=== PATIENT | female | born 1940 | race Caucasian/White ===

== ENCOUNTER 2016-11-02 15:30 | Emergency (ER) | payer MEDICARE ==
[2016-11-02] MEDS ORDERED: Albuterol/Ipratropium 3.0-0.5 MG/3 ML Neb Soln NEB ONE (15:47)
[2016-11-02] MEDS ORDERED: Albuterol/Ipratropium 3.0-0.5 MG/3 ML Neb Soln ONE (15:48)
[2016-11-02] MEDS ORDERED: predniSONE 20 MG Tab PO ONE (16:28)
--- NOTE | 2016-11-02 17:04 | EDM.PDOC ---
ED HPI GENERAL MEDICAL PROBLEM - General Chief Complaint: Respiratory Problem Stated Complaint: SOB Time Seen by Provider: 11/02/16 15:50 Source of Information: Reports: Patient, Family History Limitations: Reports: Respiratory Distress - History of Present Illness INITIAL COMMENTS - FREE TEXT/NARRATIVE: 76 y.o.w.f with a h/o COPD, came to the ed with her family to worsening of SOB. Pt smokes daily, has chronic low back pain as well. No Cough, no F/C No N/V /D or any other acute medical issues. Onset: Gradual, Unknown/Unsure Onset Date: 11/02/16 Onset Time: 06:00 Duration: Intermittent Location: Reports: Chest Quality: Reports: Same as Previous Episode Severity: Moderate Improves with: Reports: Medication Worsens with: Reports: Movement Context: Reports: Exercise Lower Back Pain Score (Numeric/FACES): 4 - Related Data Allergies Allergy/AdvReac Type Severity Reaction Status Date / Time Penicillins Allergy Severe Hives Verified 11/02/16 15:48 latex Allergy Rash Verified 11/02/16 15:48 Home Meds: Home Meds Calcium Carbonate [Calcium] 500 mg PO DAILY 12/05/12 [History] FLUoxetine [FLUoxetine] 10 mg PO DAILY 12/05/12 [History] Lutein/Minerals/Vit A,C & E [Ocuvite] 1 tab PO DAILY 12/05/12 [History] Multivitamins [Multivitamins] 1 each PO DAILY 12/05/12 [History] Zinc Gluconate [Zinc] 1 tab PO DAILY 12/05/12 [History] Cephalexin 500 mg PO BID 11/02/16 [History] Furosemide [Lasix] 40 mg PO DAILY 11/02/16 [History] Potassium Chloride 10 meq PO DAILY 11/02/16 [History] predniSONE 20 mg PO WITHBREAKFAST #4 tablet 11/02/16 [Rx] Past Medical History Cardiovascular History: Reports: None Respiratory History: Reports: COPD, SOB Gastrointestinal History: Reports: Bowel Obstruction 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: Musculoskeletal History: Reports: Back Pain, Chronic - Past Surgical History GI Surgical History: Reports: Appendectomy, Hernia Repair/Other Social & Family History - Tobacco Use Years of Tobacco use: 50 - Caffeine Use Caffeine Use: Reports: Coffee, Soda - Alcohol Use Days Per Week of Alcohol Use: 0 - Recreational Drug Use Recreational Drug Use: No ED ROS GENERAL - Review of Systems Review Of Systems: See Below Constitutional: Reports: No Symptoms HEENT: Reports: No Symptoms Respiratory: Reports: Shortness of Breath Cardiovascular: Reports: No Symptoms Endocrine: Reports: No Symptoms GI/Abdominal: Reports: No Symptoms : Reports: No Symptoms Musculoskeletal: Reports: No Symptoms Skin: Reports: No Symptoms Neurological: Reports: No Symptoms Psychiatric: Reports: No Symptoms, Other Hematologic/Lymphatic: Reports: No Symptoms Immunologic: Reports: No Symptoms ED EXAM, GENERAL - Physical Exam Exam: See Below Exam Limited By: Respiratory Distress General Appearance: Alert, WD/WN, Mild Distress Eye Exam: Bilateral Eye: Abnormal EOM Ears: Normal External Exam Ear Exam: Bilateral Ear: Auricle Normal Nose: Normal Inspection, Normal Mucosa Throat/Mouth: Normal Inspection, Normal Lips Head: Atraumatic Neck: Normal Inspection Respiratory/Chest: Decreased Breath Sounds, Rhonchi, Wheezing, Prolonged Expiration Cardiovascular: Normal Peripheral Pulses, Regular Rate, Rhythm, No Edema Peripheral Pulses: 1+: Femoral (L), Femoral (R) GI/Abdominal: Normal Bowel Sounds, Soft, Non-Tender, No Organomegaly (Female) Exam: Deferred Rectal (Female) Exam: Deferred Back Exam: Paraspinal Tenderness (chronic), Vertebral Tenderness (chronic) Extremities: Normal Inspection, Normal Range of Motion Neurological: Alert, Oriented, CN II-XII Intact, Normal Cognition Psychiatric: Normal Affect, Normal Mood Skin Exam: Warm, Dry, Intact, Normal Color, No Rash Lymphatic: No Adenopathy Course - Vital Signs Text/Narrative:: 76 y.o.w.f with a h/o COPD, came to the ed with her family to worsening of SOB. Pt smokes daily, has chronic low back pain as well. No Cough, no F/C No N/V /D or any other acute medical issues. PE: COPD exacerbation, Low back pain Imaging: CXR COPD, No infiltrate NAD Labs; WBC nl, pH 7.45 pCO2 30 pO2 75 on RA Na 133 ImpressionL: COPD exacerbation Tx: Duoneb, Prednson Reexam: Improved 95%, back pain improved a well. Plan: D/C with instructions Last Recorded V/S: Last Vital Signs Temp 36.8 C 11/02/16 15:50 Pulse 62 11/02/16 17:10 Resp 20 11/02/16 15:50 BP 107/62 11/02/16 17:10 Pulse Ox 94 L 11/02/16 17:10 - Orders/Labs/Meds Orders: Active Orders 24 hr Category Date Time Status RT Aerosol Therapy [RC] ASDIRECTED Care 11/02/16 15:48 Active Labs: Laboratory Tests 11/02/16 11/02/16 11/02/16 Range/Units 16:05 16:05 16:05 WBC 6.6 (4.5-12.0) X10-3/uL RBC 4.57 (3.23-5.20) x10(6)uL Hgb 14.1 (11.5-15.5) g/dL Hct 42.9 (30.0-51.3) % MCV 93.8 (80-96) fL MCH 30.9 (27.7-33.6) pg MCHC 32.9 (32.2-35.4) g/dL RDW 14.0 (11.5-15.5) % Plt Count 291 (125-369) X10(3)uL MPV 8.4 (7.4-10.4) fL Neut % (Auto) 56.1 (46-82) % Lymph % (Auto) 23.4 (13-37) % Vilas % (Auto) 8.8 (4-12) % Eos % (Auto) 11 H (1.0-5.0) % Baso % (Auto) 1 (0-2) % Neut # (Auto) 3.7 (1.6-8.3) # Lymph # (Auto) 1.5 (0.6-5.0) # Vilas # (Auto) 0.6 (0.0-1.3) # Eos # (Auto) 0.7 (0.0-0.8) # Baso # (Auto) 0.1 (0.0-0.2) # PT 10.7 (8.7-11.1) INR 1.06 (0.89-1.13) ABG pH (7.35-7.45) ABG pCO2 (35-45) mmHg ABG pO2 (83-108) mmHg ABG HCO3 (22-26) mmol/L ABG O2 Saturation (96-97) % ABG Base Excess (-2-2) Nico Test O2 Delivery Device Sodium 133 L (135-145) mmol/L Potassium 3.9 (3.5-5.3) mmol/L Chloride 101 D (100-110) mmol/L Carbon Dioxide 26 (23-29) mmol/L BUN 20 (8-23) mg/dL Creatinine 1.0 (0.6-1.3) mg/dL Est Cr Clr Drug Dosing 43.74 mL/min Estimated GFR (MDRD) 54 L (>60) BUN/Creatinine Ratio 20.0 (9-20) Glucose 131 H (80-116) mg/dL Lactic Acid (0.5-2.2) mmol/L Calcium 8.9 (8.6-10.2) mg/dL Troponin I (0.02-0.06) NG/ML 11/02/16 11/02/16 11/02/16 Range/Units 16:05 16:05 16:10 WBC (4.5-12.0) X10-3/uL RBC (3.23-5.20) x10(6)uL Hgb (11.5-15.5) g/dL Hct (30.0-51.3) % MCV (80-96) fL MCH (27.7-33.6) pg MCHC (32.2-35.4) g/dL RDW (11.5-15.5) % Plt Count (125-369) X10(3)uL MPV (7.4-10.4) fL Neut % (Auto) (46-82) % Lymph % (Auto) (13-37) % Vilas % (Auto) (4-12) % Eos % (Auto) (1.0-5.0) % Baso % (Auto) (0-2) % Neut # (Auto) (1.6-8.3) # Lymph # (Auto) (0.6-5.0) # Vilas # (Auto) (0.0-1.3) # Eos # (Auto) (0.0-0.8) # Baso # (Auto) (0.0-0.2) # PT (8.7-11.1) INR (0.89-1.13) ABG pH 7.48 H (7.35-7.45) ABG pCO2 30 L (35-45) mmHg ABG pO2 75 L (83-108) mmHg ABG HCO3 22 (22-26) mmol/L ABG O2 Saturation 96 (96-97) % ABG Base Excess 0.3 (-2-2) Nico Test Passed O2 Delivery Device Room air Sodium (135-145) mmol/L Potassium (3.5-5.3) mmol/L Chloride (100-110) mmol/L Carbon Dioxide (23-29) mmol/L BUN (8-23) mg/dL Creatinine (0.6-1.3) mg/dL Est Cr Clr Drug Dosing mL/min Estimated GFR (MDRD) (>60) BUN/Creatinine Ratio (9-20) Glucose (80-116) mg/dL Lactic Acid 2.1 (0.5-2.2) mmol/L Calcium (8.6-10.2) mg/dL Troponin I < 0.01 L (0.02-0.06) NG/ML Meds: Medications Discontinued Medications Generic Name Dose Route Start Last Admin Trade Name Eder PRN Reason Stop Dose Admin Albuterol/Ipratropium 3 ml 11/02/16 15:47 11/02/16 15:51 Duoneb 3.0-0.5 Mg/3 Ml NEB 11/02/16 15:48 3 ml ONETIME ONE Administration Albuterol/Ipratropium Confirm 11/02/16 15:48 11/02/16 16:12 Duoneb 3.0-0.5 Mg/3 Ml Administered 11/02/16 15:49 Not Given Dose 3 ml .ROUTE .STK-MED ONE Prednisone 60 mg 11/02/16 16:28 11/02/16 16:34 Prednisone PO 11/02/16 16:29 60 mg ONETIME ONE Administration Departure - Departure Time of Disposition: 17:00 Disposition: Home, Self-Care 01 Condition: Good Clinical Impression: COPD exacerbation - Discharge Information Prescriptions: predniSONE 20 mg PO WITHBREAKFAST #4 tablet Referrals: Belen Elaine [employer] [Primary Care Provider] - Forms: ED Department Discharge Additional Instructions: Please take prednisone for the next 4 days, please cont. your current meds, please f/u, come back if your symptoms get worse acutely - My Orders Last 24 Hours: My Active Orders 11/02/16 15:48 RT Aerosol Therapy [RC] ASDIRECTED - Assessment/Plan Last 24 Hours: My Active Orders 11/02/16 15:48 RT Aerosol Therapy [RC] ASDIRECTED
[2016-11-02 17:20] VITALS: BP 107/62
--- NOTE | 2016-11-03 11:10 | CR ---
INDICATION: Short of breath. CHEST: Portable AP upright view of the chest 11/02/2016, was compared with and 02/13/2011, revealing the heart to be normal in size and shape. The aorta is slightly tortuous with calcification in the arch. Lungs appear to be hyperaerated, with slightly flattened diaphragm leaf on the right, suggesting the possibility of COPD. No definite evidence of CHF could be identified. A definite active infiltrate or effusion was not identified. IMPRESSION: 1. Probable COPD. 2. ASD aorta. 3. Mild dextroconvex scoliosis thoracic spine. MTDD
== END 2016-11-02 17:15 | disposition home or self-care (01) ==
LOC: FB.ED 15:30
DX: J44.1 Chronic obstructive pulmonary disease with (acute) exacerbation (principal); F17.210 Nicotine dependence, cigarettes, uncomplicated; Z88.0 Allergy status to penicillin; Z91.040 Latex allergy status; Z90.49 Acquired absence of other specified parts of digestive tract
CPT/HCPCS: 36415; 36600; 71010; 80048; 82803; 83605; 84484; 85025; 85610; 94664; 99285; A9270; J7620; 99283

== ENCOUNTER 2017-06-20 10:32 | Emergency (ER) | payer MEDICARE ==
[2017-06-20] MEDS ORDERED: Ketorolac 30 MG/ML SDV IM ONE (11:34)
[2017-06-20] MEDS ORDERED: traMADol 50 MG Tab PO ONE (11:34)
[2017-06-20] MEDS ORDERED: Acetaminophen 500 MG Tab PO ONE (11:34)
--- NOTE | 2017-06-20 12:11 | EDM.PDOC ---
ED HPI GENERAL MEDICAL PROBLEM - General Chief Complaint: Back Pain or Injury Stated Complaint: BACK PAIN Time Seen by Provider: 06/20/17 11:20 Source of Information: Reports: Patient History Limitations: Reports: No Limitations - History of Present Illness INITIAL COMMENTS - FREE TEXT/NARRATIVE: c/o mid back pain pt bend over 2d ago to place a humidifier on the floor, had a sharp pain in her mid back, has not radiated, has not gotten better, heat does not help, inc'd with walking uses a walker, has not fallen in past yr h/o COPD h/o osteoporosis her 03/25, the next day she slipped in the shower and fell against the shower head bending it, had pain over posterior rib for 8w, now better here with daughter no f/c/d has had flu vax smokes 2 cig/d Middle Back Pain Score (Numeric/FACES): 7 - Related Data Allergies Allergy/AdvReac Type Severity Reaction Status Date / Time Penicillins Allergy Severe Hives Verified 06/20/17 11:10 latex Allergy Rash Verified 06/20/17 11:10 Home Meds: Home Meds Calcium Carbonate [Calcium] 500 mg PO DAILY 12/05/12 [History] FLUoxetine [FLUoxetine] 10 mg PO DAILY 12/05/12 [History] Lutein/Minerals/Vit A,C & E [Ocuvite] 1 tab PO DAILY 12/05/12 [History] Multivitamins [Multivitamins] 1 each PO DAILY 12/05/12 [History] Zinc Gluconate [Zinc] 1 tab PO DAILY 12/05/12 [History] Cephalexin 500 mg PO BID 11/02/16 [History] Furosemide [Lasix] 40 mg PO DAILY 11/02/16 [History] Potassium Chloride 10 meq PO DAILY 11/02/16 [History] Aspirin [Halfprin] 81 mg PO DAILY 06/20/17 [History] Cyanocobalamin (Vitamin B12) [Vitamin B12] 1,000 mcg PO DAILY 06/20/17 [History] Fluticasone/Salmeterol [Advair 250-50] 1 puff INH BID 06/20/17 [History] traMADol HCl [Tramadol HCl] 50 mg PO Q6H PRN #15 tablet 06/20/17 [Rx] Past Medical History HEENT History: Reports: Other (See Below) Other HEENT History: wears glasses Cardiovascular History: Reports: None Respiratory History: Reports: COPD, SOB Gastrointestinal History: Reports: Bowel 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: Musculoskeletal History: Reports: Back Pain, Chronic - Past Surgical History HEENT Surgical History: Reports: Other (See Below) Other HEENT Surgeries/Procedures: cornea transplant Cardiovascular Surgical History: Reports: Other (See Below) Other Cardiovascular Surgeries/Procedures: vein stripping GI Surgical History: Reports: Appendectomy, Bariatric Procedure, Cholecystectomy , Colon, Hernia Repair/Other Female Surgical History: Reports: Hysterectomy Social & Family History - Tobacco Use Smoking Status *Q: Never Smoker Years of Tobacco use: 50 - Caffeine Use Caffeine Use: Reports: Coffee - Alcohol Use Days Per Week of Alcohol Use: 0 - Recreational Drug Use Recreational Drug Use: No ED ROS GENERAL - Review of Systems Review Of Systems: See Below Constitutional: Reports: No Symptoms HEENT: Reports: No Symptoms Respiratory: Reports: No Symptoms Cardiovascular: Reports: No Symptoms Endocrine: Reports: No Symptoms GI/Abdominal: Reports: No Symptoms : Reports: No Symptoms Musculoskeletal: Reports: Back Pain Skin: Reports: No Symptoms Neurological: Reports: No Symptoms Psychiatric: Reports: No Symptoms Hematologic/Lymphatic: Reports: No Symptoms Immunologic: Reports: No Symptoms ED EXAM, UPPER BACK/NECK PAIN - Physical Exam Exam: See Below Exam Limited By: No Limitations General Appearance: Alert, WD/WN Skin Exam: Other (back with 1-2+ tender at T10, no spasm, slight tender above and below T10, ribs NT) Course - Vital Signs Last Recorded V/S: Last Vital Signs Temp 36.5 C 06/20/17 10:45 Pulse Resp 18 06/20/17 10:45 BP 131/65 06/20/17 10:45 Pulse Ox 99 06/20/17 10:45 - Orders/Labs/Meds Orders: Active Orders 24 hr Category Date Time Status Thoracic Spine 3V [CR] Stat Exams 06/20/17 11:38 Taken Meds: Medications Discontinued Medications Generic Name Dose Route Start Last Admin Trade Name Freq PRN Reason Stop Dose Admin Acetaminophen 1,000 mg 06/20/17 11:34 06/20/17 11:55 Tylenol Extra Strength PO 06/20/17 11:35 1,000 mg ONETIME ONE Administration Ketorolac Tromethamine 30 mg 06/20/17 11:34 06/20/17 11:55 Toradol IM 06/20/17 11:35 30 mg ONETIME ONE Administration Tramadol HCl 50 mg 06/20/17 11:34 06/20/17 11:54 Ultram PO 06/20/17 11:35 50 mg ONETIME ONE Administration - Re-Assessments/Exams Free Text/Narrative Re-Assessment/Exam: 06/20/17 12:26 XR t-spine with old 15% compression fx's of T10 and T9, c/w 2010 CxR multiple old 40% compression fx's of upper t-spine meds here "took the edge off" last BUN/creat 20/1.0, should be able to tolerate ibuprofen for 1-2w PCP Belen Johnson Departure - Departure Time of Disposition: 12:28 Disposition: Home, Self-Care 01 Condition: Good Clinical Impression: Compression fracture of thoracic vertebra - Discharge Information Prescriptions: traMADol HCl [Tramadol HCl] 50 mg PO Q6H PRN #15 tablet PRN Reason: Pain Instructions: Vertebral Fracture Referrals: Belen Elaine NP [Primary Care Provider] - Forms: ED Department Discharge Additional Instructions: For pain, take ibuprofen 200 mg 2 tabs 4 times a day for 1-2 weeks. For pain, take acetaminophen 500 mg 2 tabs 4 times a day for 8 weeks. For pain, as needed, take tramadol 50 mg 1 tab 4 times a day. No alcohol. Use one of your back braces when out of bed. See your doctor in 1 week. Return to ED if you are feeling worse. - My Orders Last 24 Hours: My Active Orders 06/20/17 11:38 Thoracic Spine 3V [CR] Stat - Assessment/Plan Last 24 Hours: My Active Orders 06/20/17 11:38 Thoracic Spine 3V [CR] Stat
[2017-06-20 12:53] VITALS: BP 126/63
--- NOTE | 2017-06-22 16:11 | CR ---
INDICATION: Middle back pain. Was lifting 20-30 pound object and felt pain. THORACIC SPINE: A frontal view of the thoracic spine with three lateral views of the thoracic spine were obtained 06/20/2017 and compared with chest x-ray images of the spine from 02/13/2011, again revealing compression fractures of the upper middle thoracic spine anteriorly and superior endplates, with no gross change compared with the previous examination, there being some mild degenerative changes in that area and accentuated dorsal kyphosis. The possibility, however, of minimal acute endplate compression fractures at at least two levels in that area cannot be excluded. As felt to be clinically necessary, nuclear bone imaging may be helpful for further evaluation as to the evaluation for chronicity versus acute compression fractures. A mild dextroconvex slightly rotatory scoliosis of the lower middle thoracic spine is noted. This may be very slightly more prominent than on the 2010 chest x-ray. IMPRESSION: Multiple osteoporotic compressions with accentuated kyphosis, mild degenerative changes, and for the most part, chronic appearance. However, minimal acute endplate compressions cannot be excluded in that area. [facility]
== END 2017-06-20 12:45 | disposition home or self-care (01) ==
LOC: FB.ED 10:32
DX: S22.079A Unspecified fracture of T9-T10 vertebra, initial encounter for closed fracture (principal); M81.0 Age-related osteoporosis without current pathological fracture; F17.210 Nicotine dependence, cigarettes, uncomplicated; J44.9 Chronic obstructive pulmonary disease, unspecified; Z88.0 Allergy status to penicillin; Z91.040 Latex allergy status; Z79.899 Other long term (current) drug therapy; Z79.82 Long term (current) use of aspirin; X50.0XXA Overexertion from strenuous movement or load, initial encounter
CPT/HCPCS: 72072; 96372; 99283; A9270; J1885

== ENCOUNTER 2017-07-08 05:04 | Emergency (ER) | payer MEDICARE ==
[2017-07-08 05:15] VITALS: BP 127/86
[2017-07-08] MEDS ORDERED: predniSONE 20 MG Tab PO ONE (05:29)
--- NOTE | 2017-07-08 05:37 | EDM.PDOC ---
ED HPI GENERAL MEDICAL PROBLEM - General Chief Complaint: Respiratory Problem Stated Complaint: SOB Time Seen by Provider: 07/08/17 05:10 Source of Information: Reports: Patient, Family, Old Records History Limitations: Reports: No Limitations - History of Present Illness INITIAL COMMENTS - FREE TEXT/NARRATIVE: Nichol returns to [facility] ED with a relapse of SOB over the past 5 hours. She apparently felt fine yesterday, smoked 3 cigs, and was compliant with meds and nebs for her COPD. She awoke after midnight with SOB, no reported cough, chest pain, palpitations or wheezing. She summoned EMS for assistance, and arrived at the ED with nasal 02 at 4 LPM, 02 sat 99%. She is feeling a little better at this time. - Related Data Allergies Allergy/AdvReac Type Severity Reaction Status Date / Time Penicillins Allergy Severe Hives Verified 07/08/17 05:13 latex Allergy Rash Verified 07/08/17 05:13 Home Meds: Home Meds Calcium Carbonate [Calcium] 500 mg PO DAILY 12/05/12 [History] FLUoxetine 10 mg PO DAILY 12/05/12 [History] Lutein/Minerals/Vit A,C & E [Ocuvite] 1 tab PO DAILY 12/05/12 [History] Multivitamins 1 each PO DAILY 12/05/12 [History] Zinc Gluconate [Zinc] 1 tab PO DAILY 12/05/12 [History] Cephalexin 500 mg PO BID 11/02/16 [History] Furosemide [Lasix] 40 mg PO DAILY 11/02/16 [History] Potassium Chloride 10 meq PO DAILY 11/02/16 [History] Aspirin [Halfprin] 81 mg PO DAILY 06/20/17 [History] Cyanocobalamin (Vitamin B12) [Vitamin B12] 1,000 mcg PO DAILY 06/20/17 [History] Fluticasone/Salmeterol [Advair 250-50] 1 puff INH BID 06/20/17 [History] traMADol HCl [Tramadol HCl] 50 mg PO Q6H PRN #15 tablet 06/20/17 [Rx] predniSONE [Prednisone] 20 mg PO DAILY 7 Days #10 tablet 07/08/17 [Rx] Past Medical History HEENT History: Reports: Other (See Below) Other HEENT History: wears glasses Cardiovascular History: Reports: None Respiratory History: Reports: COPD, SOB Gastrointestinal History: Reports: Bowel Obstruction 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: Musculoskeletal History: Reports: Back Pain, Chronic - Past Surgical History HEENT Surgical History: Reports: Other (See Below) Other HEENT Surgeries/Procedures: cornea transplant Cardiovascular Surgical History: Reports: Other (See Below) Other Cardiovascular Surgeries/Procedures: vein stripping GI Surgical History: Reports: Appendectomy, Bariatric Procedure, Cholecystectomy , Colon, Hernia Repair/Other Female Surgical History: Reports: Hysterectomy Social & Family History - Tobacco Use Smoking Status *Q: Current Every Day Smoker Years of Tobacco use: 50 Packs/Tins Daily: 0.5 - Caffeine Use Caffeine Use: Reports: Coffee, Soda - Alcohol Use Days Per Week of Alcohol Use: 0 - Recreational Drug Use Recreational Drug Use: No ED ROS GENERAL - Review of Systems Review Of Systems: See Below Constitutional: Reports: Malaise, Weakness, Fatigue HEENT: Reports: No Symptoms Respiratory: Reports: Shortness of Breath, Wheezing Cardiovascular: Reports: Dyspnea on Exertion Endocrine: Reports: No Symptoms GI/Abdominal: Reports: No Symptoms Musculoskeletal: Reports: No Symptoms Skin: Reports: No Symptoms Neurological: Reports: No Symptoms Psychiatric: Reports: No Symptoms Hematologic/Lymphatic: Reports: No Symptoms Immunologic: Reports: No Symptoms ED EXAM, GENERAL - Physical Exam Exam: See Below Exam Limited By: No Limitations General Appearance: Alert, WD/WN, No Apparent Distress, Thin Eye Exam: Bilateral Eye: EOMI, Normal Inspection, PERRL Ears: Normal External Exam Nose: Normal Inspection Throat/Mouth: Normal Inspection, Normal Voice Head: Normocephalic Neck: Normal Inspection, Supple, Non-Tender Respiratory/Chest: Decreased Breath Sounds, Crackles, Wheezing, Accessory Muscle Use, Prolonged Expiration Cardiovascular: Regular Rate, Rhythm, No Murmur GI/Abdominal: Normal Bowel Sounds, Soft, Non-Tender, No Organomegaly, No Distention, No Mass (Female) Exam: Deferred Rectal (Female) Exam: Deferred Back Exam: Normal Inspection Extremities: Normal Inspection, No Pedal Edema Neurological: Alert, Oriented, CN II-XII Intact Psychiatric: Normal Affect, Normal Mood Skin Exam: Warm, Dry, Intact, Normal Color Lymphatic: No Adenopathy Course - Vital Signs Text/Narrative:: Following assessment at the [facility] ED, a DuoNeb was administered, Prednisone 40 mg po, and a 12 lead ekg noted NSR with LBBB; chest x ray: heart normal size, no active infiltrates; CBC noted Hgb 15 gm, WBC 9,400, plts normal; CMP noted BUN 24, Cr 0.9; Troponin I <0.017; BNP 229. 02 sats at 96% on RA following observation. She is sxs improved. Last Recorded V/S: Last Vital Signs Temp 36.7 C 07/08/17 05:14 Pulse 85 07/08/17 05:14 Resp 17 07/08/17 05:14 BP 127/86 07/08/17 05:14 Pulse Ox 99 07/08/17 05:14 - Orders/Labs/Meds Orders: Active Orders 24 hr Category Date Time Status EKG Documentation Completion [RC] ASDIRECTED Care 07/08/17 05:31 Active RT Aerosol Therapy [RC] ASDIRECTED Care 07/08/17 05:40 Active Chest 1V Frontal [CR] Stat Exams 07/08/17 05:30 Taken EKG 12 Lead [EK] Routine Ther 07/08/17 05:30 Ordered Labs: Laboratory Tests 07/08/17 07/08/17 07/08/17 Range/Units 05:45 05:45 05:45 WBC 9.4 (4.5-12.0) X10-3/uL RBC 4.77 (3.23-5.20) x10(6)uL Hgb 15.0 (11.5-15.5) g/dL Hct 44.6 (30.0-51.3) % MCV 93.5 (80-96) fL MCH 31.6 (27.7-33.6) pg MCHC 33.8 (32.2-35.4) g/dL RDW 14.7 (11.5-15.5) % Plt Count 339 (125-369) X10(3)uL MPV 8.3 (7.4-10.4) fL Neut % (Auto) 73.4 (46-82) % Lymph % (Auto) 12.7 L (13-37) % Johnston % (Auto) 7.6 (4-12) % Eos % (Auto) 6 H (1.0-5.0) % Baso % (Auto) 0 (0-2) % Neut # (Auto) 6.9 (1.6-8.3) # Lymph # (Auto) 1.2 (0.6-5.0) # Johnston # (Auto) 0.7 (0.0-1.3) # Eos # (Auto) 0.6 (0.0-0.8) # Baso # (Auto) 0.0 (0.0-0.2) # Sodium 138 (135-145) mmol/L Potassium 3.9 (3.5-5.3) mmol/L Chloride 101 (100-110) mmol/L Carbon Dioxide 34 H (21-32) mmol/L BUN 24 H (7-18) mg/dL Creatinine 0.9 (0.55-1.02) mg/dL Est Cr Clr Drug Dosing 47.85 mL/min Estimated GFR (MDRD) > 60 (>60) BUN/Creatinine Ratio 26.7 H (9-20) Glucose 104 (80-116) mg/dL Calcium 8.7 (8.6-10.2) mg/dL Troponin I < 0.017 L (<0.017-0.056) ng/mL NT-Pro-B Natriuret Pep 229 (<=450) pg/mL Meds: Medications Discontinued Medications Generic Name Dose Route Start Last Admin Trade Name Freq PRN Reason Stop Dose Admin Albuterol/Ipratropium 3 ml 07/08/17 05:40 07/08/17 05:48 Duoneb 3.0-0.5 Mg/3 Ml NEB 07/08/17 05:41 3 ml ONETIME ONE Administration Prednisone 40 mg 07/08/17 05:29 07/08/17 05:48 Prednisone PO 07/08/17 05:30 40 mg ONETIME ONE Administration Departure - Departure Time of Disposition: 06:25 Disposition: Home, Self-Care 01 Condition: Fair Clinical Impression: COPD exacerbation - Discharge Information Referrals: Belen Elaine NP [Primary Care Provider] - Forms: ED Department Discharge - Problem List & Annotations (1) COPD exacerbation SNOMED Code(s): 801152636068063 Code(s): J44.1 - CHRONIC OBSTRUCTIVE PULMONARY DISEASE W (ACUTE) EXACERBATION Status: Acute Current Visit: Yes Annotation/Comment:: I dispensed Prednisone taper 40-0 over the next week, advised no smoking, continue nebs at home as directed. - Problem List Review Problem List Initiated/Reviewed/Updated: Yes - My Orders Last 24 Hours: My Active Orders 07/08/17 05:30 Chest 1V Frontal [CR] Stat EKG 12 Lead [EK] Routine 07/08/17 05:31 EKG Documentation Completion [RC] ASDIRECTED 07/08/17 05:40 RT Aerosol Therapy [RC] ASDIRECTED - Assessment/Plan Last 24 Hours: My Active Orders 07/08/17 05:30 Chest 1V Frontal [CR] Stat EKG 12 Lead [EK] Routine 07/08/17 05:31 EKG Documentation Completion [RC] ASDIRECTED 07/08/17 05:40 RT Aerosol Therapy [RC] ASDIRECTED Plan: Follow up with PCP if needed.
[2017-07-08] MEDS ORDERED: Albuterol/Ipratropium 3.0-0.5 MG/3 ML Neb Soln NEB ONE (05:40)
--- NOTE | 2017-07-08 11:00 | CR ---
INDICATION: Short of breath. CHEST: An AP upright view of the chest, 07/08/2017, was compared with 2016 and 10/02/2013. The heart is enlarged similar to the previous study. The aorta is tortuous with calcification in the arch. Overlying EKG leads are noted. Slightly flattened diaphragm leaf with interdigitation and hyperaeration suggests COPD. No definite CHF is seen. No consolidating pneumonia or effusion was seen. Markings appear similar to the previous studies and are compatible with fibrosis , however, making it difficult to entirely exclude minimal patchy bronchopneumonia in areas of heavy markings. IMPRESSION: 1. No acute process. 2. ASHD. 3. COPD. 4. Pulmonary fibrosis. MTDD
== END 2017-07-08 06:40 | disposition home or self-care (01) ==
LOC: FB.ED 05:04
DX: J44.1 Chronic obstructive pulmonary disease with (acute) exacerbation (principal); F17.210 Nicotine dependence, cigarettes, uncomplicated; Z88.0 Allergy status to penicillin; Z91.040 Latex allergy status; Z79.899 Other long term (current) drug therapy; Z79.82 Long term (current) use of aspirin
CPT/HCPCS: 36415; 71045; 80048; 83880; 84484; 85025; 93005; 94640; 99285; A9270; J7620

== ENCOUNTER 2017-08-13 15:38 | Emergency (ER) | payer MEDICARE ==
[2017-08-13 15:53] VITALS: BP 116/70
--- NOTE | 2017-08-13 16:28 | EDM.PDOC ---
ED HPI GENERAL MEDICAL PROBLEM - General Chief Complaint: Upper Extremity Injury/Pain Stated Complaint: INJURED L ARM Time Seen by Provider: 08/13/17 15:45 Source of Information: Reports: Patient History Limitations: Reports: No Limitations - History of Present Illness INITIAL COMMENTS - FREE TEXT/NARRATIVE: c/o L shoulder pain fell getting into tub last night, has pain under her R clavicle with movement, took ibuprofen x 2 this AM which helped stopped smoing 2m ago daughter here, requested a note to stay with her mother for a few days to help her left chest/shoulder Pain Score (Numeric/FACES): 5 - Related Data Allergies Allergy/AdvReac Type Severity Reaction Status Date / Time Penicillins Allergy Severe Hives Verified 08/13/17 15:55 latex Allergy Rash Verified 08/13/17 15:55 Home Meds: Home Meds Calcium Carbonate [Calcium] 500 mg PO DAILY 12/05/12 [History] FLUoxetine 10 mg PO DAILY 12/05/12 [History] Lutein/Minerals/Vit A,C & E [Ocuvite] 1 tab PO DAILY 12/05/12 [History] Multivitamins 1 each PO DAILY 12/05/12 [History] Zinc Gluconate [Zinc] 1 tab PO DAILY 12/05/12 [History] Cephalexin 500 mg PO BID 11/02/16 [History] Furosemide [Lasix] 40 mg PO DAILY 11/02/16 [History] Potassium Chloride 10 meq PO DAILY 11/02/16 [History] Aspirin [Halfprin] 81 mg PO DAILY 06/20/17 [History] Cyanocobalamin (Vitamin B12) [Vitamin B12] 1,000 mcg PO DAILY 06/20/17 [History] Fluticasone/Salmeterol [Advair 250-50] 1 puff INH BID 06/20/17 [History] traMADol HCl [Tramadol HCl] 50 mg PO Q6H PRN #15 tablet 06/20/17 [Rx] predniSONE [Prednisone] 20 mg PO DAILY 7 Days #10 tablet 07/08/17 [Rx] Past Medical History HEENT History: Reports: Other (See Below) Other HEENT History: wears glasses Cardiovascular History: Reports: None Respiratory History: Reports: COPD, SOB Gastrointestinal History: Reports: 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: Musculoskeletal History: Reports: Back Pain, Chronic - Past Surgical History HEENT Surgical History: Reports: Other (See Below) Other HEENT Surgeries/Procedures: cornea transplant Cardiovascular Surgical History: Reports: Other (See Below) Other Cardiovascular Surgeries/Procedures: vein stripping GI Surgical History: Reports: Appendectomy, Bariatric Procedure, Cholecystectomy , Colon, Hernia Repair/Other Female Surgical History: Reports: Hysterectomy Social & Family History - Tobacco Use Smoking Status *Q: Former Smoker Used Tobacco, but Quit: Yes Month/Year Tobacco Last Used: 07/22 - Caffeine Use Caffeine Use: Reports: Coffee, Soda - Recreational Drug Use Recreational Drug Use: No Review of Systems - Review of Systems Review Of Systems: See Below Constitutional: Reports: No Symptoms Eyes: Reports: No Symptoms Ears: Reports: No Symptoms Nose: Reports: No Symptoms Mouth/Throat: Reports: No Symptoms Respiratory: Reports: No Symptoms Cardiovascular: Reports: No Symptoms GI/Abdominal: Reports: No Symptoms Genitourinary: Reports: No Symptoms Musculoskeletal: Reports: Other Skin: Reports: No Symptoms Neurological: Reports: No Symptoms Psychiatric: Reports: No Symptoms ED EXAM, GENERAL - Physical Exam Exam: See Below Exam Limited By: No Limitations General Appearance: Alert, WD/WN, No Apparent Distress, Other (alert, pleasant, conversant, moves fairly well, has her bourne walker with her) Ears: Normal External Exam Nose: Normal Inspection, Normal Mucosa, No Blood Throat/Mouth: Normal Inspection, Normal Lips, No Airway Compromise Head: Atraumatic, Normocephalic Neck: Normal Inspection, Supple, Non-Tender, Full Range of Motion. No: Limited Range of Motion, Lymphadenopathy (R), Lymphadenopathy (L), Tender Lateral, Tender Midline Respiratory/Chest: No Respiratory Distress, Lungs Clear, No Accessory Muscle Use , Other (fair AE, symmetric, tender over L ribs 3 and 4 under the clavicle, no swell, no ecchymosis, not localized, L axilla NT, back NT, neck NT, L clavicle NT, good ROM L shoulder) Cardiovascular: Regular Rate, Rhythm, No Edema, No Gallop, No Rub GI/Abdominal: Soft, Non-Tender Back Exam: Normal Inspection, Full Range of Motion, NT Extremities: Normal Inspection, Normal Range of Motion, Non-Tender, No Pedal Edema Neurological: Alert, Oriented, CN II-XII Intact, Normal Cognition, No Motor/ Sensory Deficits Psychiatric: Normal Affect, Normal Mood Skin Exam: Warm, Dry, Intact, Normal Color, No Rash Lymphatic: No Adenopathy Course - Vital Signs Last Recorded V/S: Last Vital Signs Temp Pulse 72 08/13/17 15:40 Resp 16 08/13/17 15:40 BP 116/70 08/13/17 15:40 Pulse Ox 97 08/13/17 15:40 - Orders/Labs/Meds Orders: Active Orders 24 hr Category Date Time Status Ribs 2V w Chest Lt [CR] Stat Exams 08/13/17 16:25 Ordered - Re-Assessments/Exams Free Text/Narrative Re-Assessment/Exam: 08/13/17 16:35 XR L ribs neg Departure - Departure Time of Disposition: 16:35 Disposition: Home, Self-Care 01 Condition: Good Clinical Impression: Contusion of rib on left side - Discharge Information Instructions: Rib Contusion Referrals: Belen Elaine LEATHER PRODUCTION WORKER [Primary Care Provider] - Forms: ED Department Discharge Additional Instructions: For pain and inflammation, take acetaminophen 500 mg 2 tabs 4 times a day for 1 week, longer if needed. For pain and inflammation, may also take ibuprofen 200 mg 2 tabs 4 times a day for 1 week. For pain, may also take tramadol 50 mg 1 tab 4 times a day. No alcohol. Use ice for 10 minutes 4 times a day for 2 days. See your doctor next week if you are not getting better. Return to ED if you are feeling worse. - My Orders Last 24 Hours: My Active Orders 08/13/17 16:25 Ribs 2V w Chest Lt [CR] Stat - Assessment/Plan Last 24 Hours: My Active Orders 08/13/17 16:25 Ribs 2V w Chest Lt [CR] Stat
--- NOTE | 2017-08-14 08:51 | CR ---
INDICATION: Pain left upper chest under clavicle after a fall. CHEST: PA view of the chest 08/13/2017 was compared with 07/08/2017, revealing the heart to be near the upper limits of normal in size. The aorta is tortuous with calcification in the arch and descending portion. Findings compatible with COPD are noted. An active infiltrate, effusion, contusion, or pneumothorax was not identified. No acute bony abnormality was seen. There is noted a moderate dextroconvex scoliosis of the mid thoracic spine. IMPRESSION: 1. No acute process. 2. Probable ASHD. 3. COPD. 4. Scoliosis. LEFT RIBS: Six views of the left ribs were obtained, revealing an appearance suggesting osteoporosis - demineralization. What appears to be a healed rib fracture posterolaterally of the 7th left rib is noted. Healed proximal humeral fracture is noted with deformity. A similarly located 6th left rib fracture site that is healed is also noted. A definite displaced acute fracture site or other acute bony abnormality was not suggested. If an occult fracture site is suspected clinically, CT examination or nuclear bone imaging may be helpful for further evaluation. IMPRESSION: 1. No definite acute displaced rib fracture is identified - if occult fracture site is suspected clinically and is felt to be clinically necessary, examination with nuclear bone imaging or CT may be helpful for further evaluation. 2. Old rib fractures that are healed at the 6th and 7th ribs posterolaterally. 3. Probable osteoporosis. 4. Healed proximal left humeral fracture site with moderate deformity - lateral angulation at the fracture site. MTDD
== END 2017-08-13 16:45 | disposition home or self-care (01) ==
LOC: FB.ED 15:38
DX: S20.212A Contusion of left front wall of thorax, initial encounter (principal); J44.9 Chronic obstructive pulmonary disease, unspecified; Z88.0 Allergy status to penicillin; Z91.040 Latex allergy status; Z79.899 Other long term (current) drug therapy; Z87.891 Personal history of nicotine dependence; W19.XXXA Unspecified fall, initial encounter
CPT/HCPCS: 71101-LT; 99283

== ENCOUNTER 2017-08-15 19:22 | Emergency (ER) | payer MEDICARE ==
[2017-08-15 19:40] VITALS: BP 115/71
[2017-08-15] MEDS ORDERED: Albuterol/Ipratropium 3.0-0.5 MG/3 ML Neb Soln NEB ONE (21:08)
[2017-08-15] MEDS ORDERED: Azithromycin 250 MG Tab PO SCH (21:15)
[2017-08-15] MEDS ORDERED: predniSONE 10 MG Tab PO SCH (21:15)
[2017-08-15] MEDS ORDERED: predniSONE 10 MG Tab ONE (21:47)
--- NOTE | 2017-08-17 13:09 | ER ---
DATE SEEN: 08/15/2017 TIME SEEN: The patient was seen at 2048 hours this evening. CHIEF COMPLAINT: Cough, fever, and COPD with recently just finished Keflex for a lung infection 7 days ago. She has started with respiratory symptoms approximately 3 weeks ago, and noticed 2 days after she stopped her antibiotics sudden last week, she felt more weak and has persistent coughing. She lives at home alone, but her daughter has come to stay with her as she has felt weaker more recently. She has minimal productive cough, not a particular color. She has prednisone on 2 different occasions this year 2018 since April. PAST MEDICAL HISTORY: Significant for gastric bypass without history of GERD, small-bowel obstruction with surgery and hysterectomy with postop hernias, each of these incisions as complications. She is a 3, para 3-0-0-3 with a gastric bypass resulting in weight loss from 260 pounds down to 169 pounds, currently is 180 pounds. CURRENT MEDICATIONS: 1. Pulmicort b.i.d. 2. DuoNeb q.i.d. 3. Multivitamins. 4. calcium with minerals. 5. Lasix 40 mg daily. 6. Zinc gluconate. 7. Potassium chloride. 8. Aspirin 81 mg. 9. Cyanocobalamin 1000mg daily. 10.Calcium carbonate. 11.Medication for depression, fluoxetine. 12.Ibuprofen. 13.Tylenol No. 3. 14.Tramadol. ALLERGIES: Penicillin and Lasix. ADDITIONAL INFORMATION: Past medical history compression fracture of thoracic vertebra. REVIEW OF SYSTEMS: Negative except noted in the HPI. PHYSICAL EXAMINATION: VITAL SIGNS: Blood pressure 115/71, heart rate 82 and sinus, respirations 16, oxygen saturation 97% on room air, and temperature 36.4 degrees centigrade. The patient is 75.5 kg with 24.3 kg/m2. She is mildly asthenic. She has elem's feet of previous smoker. She smoked at least 40-pack- years. Stopped smoking a year ago. GENERAL: Alert woman in mild distress. HEENT: Pharynx, mild dryness in the oral mucosa. Tongue is negative. TMs negative. Hearing is appropriate. NECK: No bruits. No thyromegaly or masses in the neck. No cervical adenopathy. LUNGS: Rales noted at bilateral bases, 50% more on the right than left. Lungs are clear anteriorly. No wheezes noted. HEART: S1, S2. No irregularity to rhythm. No murmur. ABDOMEN: Soft. Midline incisions xiphoid to umbilicus noted without hernia and other incisions noted without hernia. Groin without abnormality. No CVA percussion tenderness. VASCULAR STRUCTURES: Lower extremities nontender to palpation. No edema noted. EMERGENCY DEPARTMENT COURSE: The patient received 40 mg prednisone, DuoNeb, azithromycin 500 mg orally, and incentive spirometer. I did not repeat the x-ray. Did not repeat blood test. The patient felt comfortable with the decision. ASSESSMENT: Partial resolution pneumonia. PLAN: Consider using quinolone, however, because of potential ligamentous laxity going to occur with it and complications magnified by other medications she is taking I chose azithromycin 500 mg stat and 250 mg daily for 4 days. Also continue with prednisone 40 mg daily for 5 days and DuoNeb every 4 hours. The patient dispensed to follow up with her doctor in a week, earlier if worse. Her daughter will be helping care for her. She is encouraged to drink at least 2 L (2 quarts) of fluid a day. OTHER DIAGNOSES: 1. Partial resolution pneumonia. 2. Status post gastric bypass. 3. Status post small-bowel obstruction surgery with partial resection with status post hysterectomy, bilateral salpingo-oophorectomy with postoperative complications of hernia with each of these 2 surgeries. 4. Greater than [id number] smoking with risk for cancer as she goes past the [id number] of smoking. /[id number] ISHA/FLORESITA SANCHEZ
== END 2017-08-15 22:05 | disposition home or self-care (01) ==
LOC: FB.ED 19:22
DX: J18.9 Pneumonia, unspecified organism (principal); J44.9 Chronic obstructive pulmonary disease, unspecified; Z98.890 Other specified postprocedural states; Z79.899 Other long term (current) drug therapy; Z88.0 Allergy status to penicillin; Z88.5 Allergy status to narcotic agent
CPT/HCPCS: 94640; 99282; A9270; J7620

== ENCOUNTER 2017-09-26 18:41 | Emergency (ER) | payer MEDICARE ==
[2017-09-26] MEDS ORDERED: Levalbuterol HCl 1.25 MG/3 ML Neb NEB ONE (19:06)
[2017-09-26 20:27] VITALS: BP 109/78
--- NOTE | 2017-09-26 20:49 | ER ---
DATE SEEN: 09/26/2017 CHIEF COMPLAINT: Cough. HISTORY OF PRESENT ILLNESS: This is a 77-year-old female with a cough that is productive of yellow sputum for 5 days. She also has difficulty breathing and does not feel good. She has tried albuterol at home as a nebulized therapy with minimal improvement. She denies chest pain or fever. PAST MEDICAL HISTORY: She has a history of COPD, tobacco abuse, back pain. CURRENT MEDICATIONS: Reviewed. PHYSICAL EXAMINATION: GENERAL: She is not in any cardiopulmonary distress. VITAL SIGNS: Her blood pressure is normal. Her pulse is 80, temperature is 97.7, oxygenation 98% on room air. ENT: Normal. NECK: Trachea is midline. CARDIOVASCULAR: Normal. RESPIRATORY SYSTEM: Absent or diminished breath sounds in both lungs. No wheezing or rhonchi in my exam. This was after Xopenex. LABORATORY DATA: Labs were normal including a BNP and troponin. EKG unremarkable. Chest x-ray was normal with exception of COPD changes. IMPRESSION: Chronic obstructive pulmonary disease exacerbation. TREATMENT: Xopenex x1. Prednisone 10 mg twice a day and Z-Nikita. Follow up in the office in 1 to 2 days. /[id number] DAVIAN/KRISTINAL
--- NOTE | 2017-09-28 11:06 | CR ---
INDICATION: Cough. CHEST: PA and lateral views of the chest were obtained 09/26/2017 and compared with 08/13/2017 and 07/08/2017, revealing findings compatible with fairly severe COPD. Two PA views were obtained. The left ventricle appears to be enlarged, although transversely the heart size does not appear to be significantly enlarged. The aorta is tortuous and calcified in the arch. Markings in the lungs appear to be similar to the previous studies, suggesting a minimal degree of pulmonary fibrosis without evidence of an active infiltrate or effusion identified. Findings were also compared with thoracic spine of and shows evidence of two compression fractures in the upper thoracic spine, which appear to be fairly stable, producing accentuated dorsal kyphosis in that area. A dextroconvex scoliosis of mild degree is also again noted in mid thoracic spine. IMPRESSION: 1. No definite acute process, but with the heavy markings at the lung bases especially, compatible with pulmonary fibrosis, it is difficult to entirely exclude minimal patchy bronchopneumonia. This is especially true at the right lung base. 2. Severe COPD. 3. ASHD with LVE. 4. Osteoporosis with compressions, stable compared with 06/20/2017 with accentuated dorsal kyphosis and scoliosis also noted. MTDD
== END 2017-09-26 20:19 | disposition home or self-care (01) ==
LOC: FB.ED 18:41
DX: J44.1 Chronic obstructive pulmonary disease with (acute) exacerbation (principal)
CPT/HCPCS: 36415; 71046; 80048; 83880; 84484; 85025; 93005; 94640; 99285; J7612

== ENCOUNTER 2018-07-13 20:58 | Emergency (ER) | payer MEDICARE ==
--- NOTE | 2018-07-13 21:25 | EDM.PDOC ---
ED HPI GENERAL MEDICAL PROBLEM - General Chief Complaint: Respiratory Problem Stated Complaint: SOB Time Seen by Provider: 07/13/18 21:00 Source of Information: Reports: Patient, Old Records History Limitations: Reports: No Limitations - History of Present Illness INITIAL COMMENTS - FREE TEXT/NARRATIVE: Nichol returns to [facility] ED with sxs of SOB over the past 4 days. There is sporadic cough, usually nonproductive, no reported wheezing, but dyspnea on exertion. She saw PCP yesterday who did not determine any new clinical findings. Nichol reports she is med compliant, and took a recent DuoNeb just an hour ago without change in breathing status. Her 02 sats on adminssion are 95 % on 2 l swatch paster. - Related Data Allergies Allergy/AdvReac Type Severity Reaction Status Date / Time Penicillins Allergy Severe Hives Verified 09/26/17 18:53 latex Allergy Rash Verified 09/26/17 18:53 Home Meds: Home Meds Calcium Carbonate [Calcium] 500 mg PO DAILY 12/05/12 [History] FLUoxetine 10 mg PO DAILY 12/05/12 [History] Lutein/Minerals/Vit A,C & E [Ocuvite] 1 tab PO DAILY 12/05/12 [History] Multivitamins 1 each PO DAILY 12/05/12 [History] Zinc Gluconate [Zinc] 1 tab PO DAILY 12/05/12 [History] Furosemide [Lasix] 40 mg PO DAILY 11/02/16 [History] Potassium Chloride 10 meq PO DAILY 11/02/16 [History] Aspirin [Halfprin] 81 mg PO DAILY 06/20/17 [History] Cyanocobalamin (Vitamin B12) [Vitamin B12] 1,000 mcg PO DAILY 06/20/17 [History] Acetaminophen [Tylenol Extra Strength] 1,000 mg PO Q4H PRN 08/15/17 [History] Albuterol/Ipratropium [DuoNeb 3.0-0.5 MG/3 ML] 3 ml .XX Q4HR #1 box 08/15/17 [Rx ] Budesonide [Pulmicort] 1 ampule INH BID 08/15/17 [History] Ibuprofen 400 mg PO Q4H PRN 08/15/17 [History] Acetaminophen/Diphenhydramine [Tylenol Pm Ex-Strength Caplet] 2 each PO BEDTIME 09/26/17 [History] Albuterol [Ventolin HFA] 2 puff .XX Q3H PRN 09/26/17 [History] Potassium Chloride 10 meq PO DAILY 09/26/17 [History] Tiotropium [Spiriva Handihaler] 18 mcg DAILY 09/26/17 [History] predniSONE 20 mg PO DAILY #8 tab 07/13/18 [Rx] Past Medical History HEENT History: Reports: Other (See Below) Other HEENT History: Wears glasses. Cardiovascular History: Reports: None Respiratory History: Reports: COPD, SOB, Other (See Below) Other Respiratory History: smoker for 60 years. 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 Cardiovascular Surgical History: Reports: Other (See Below) Other Cardiovascular Surgeries/Procedures: Vein stripping procedure. GI Surgical History: Reports: Appendectomy, Bariatric Procedure, Cholecystectomy , Colon, Hernia Repair/Other, Other (See Below) Other GI Surgeries/Procedures: Bowel obstruction. Female Surgical History: Reports: Hysterectomy Social & Family History - Family History Family Medical History: Noncontributory - Caffeine Use Caffeine Use: Reports: Coffee, Other Other Caffeine Use: diet pop. ED ROS GENERAL - Review of Systems Review Of Systems: See Below Constitutional: Reports: Malaise, Fatigue HEENT: Reports: No Symptoms Respiratory: Reports: Shortness of Breath, Cough Cardiovascular: Reports: Dyspnea on Exertion Endocrine: Reports: No Symptoms GI/Abdominal: Reports: No Symptoms : Reports: No Symptoms Musculoskeletal: Reports: Back Pain Skin: Reports: No Symptoms Neurological: Reports: No Symptoms Psychiatric: Reports: No Symptoms Hematologic/Lymphatic: Reports: No Symptoms Immunologic: Reports: No Symptoms ED EXAM, GENERAL - Physical Exam Exam: See Below Exam Limited By: No Limitations General Appearance: Alert, WD/WN, No Apparent Distress, Anxious, Thin Throat/Mouth: Normal Inspection, Normal Lips, Normal Oropharynx, Normal Voice Head: Normocephalic Neck: Normal Inspection, Supple, Non-Tender Respiratory/Chest: No Respiratory Distress, No Accessory Muscle Use, Chest Non- Tender, Decreased Breath Sounds, Prolonged Expiration Cardiovascular: Regular Rate, Rhythm, No Murmur GI/Abdominal: Normal Bowel Sounds, Soft, Non-Tender, No Organomegaly, No Distention, No Mass (Female) Exam: Deferred Rectal (Female) Exam: Deferred Back Exam: Normal Inspection Extremities: Normal Inspection, Normal Range of Motion, No Pedal Edema Neurological: Alert, Oriented, Normal Cognition, No Motor/Sensory Deficits Psychiatric: Normal Affect, Anxious Skin Exam: Warm, Dry, Intact Lymphatic: No Adenopathy Course - Vital Signs Text/Narrative:: Nichol remained stable at the [facility] ED. Baseline lab studies were unchanged, with CRP 1.0. I administered Prednisone 40 mg po at time of discharge. - Orders/Labs/Meds Labs: Laboratory Tests 07/13/18 07/13/18 07/13/18 Range/Units 21:30 21:30 21:30 WBC 7.6 (4.5-12.0) X10-3/uL RBC 3.93 (3.23-5.20) x10(6)uL Hgb 12.6 (11.5-15.5) g/dL Hct 37.2 (30.0-51.3) % MCV 94.6 (80-96) fL MCH 32.1 (27.7-33.6) pg MCHC 33.9 (32.2-35.4) g/dL RDW 14.5 (11.5-15.5) % Plt Count 342 (125-369) X10(3)uL MPV 8.0 (7.4-10.4) fL Neut % (Auto) 70.6 (46-82) % Lymph % (Auto) 12.8 L (13-37) % [place] % (Auto) 10.1 (4-12) % Eos % (Auto) 6 H (1.0-5.0) % Baso % (Auto) 1 (0-2) % Neut # (Auto) 5.3 (1.6-8.3) # Lymph # (Auto) 1.0 (0.6-5.0) # [place] # (Auto) 0.8 (0.0-1.3) # Eos # (Auto) 0.4 (0.0-0.8) # Baso # (Auto) 0.1 (0.0-0.2) # D-Dimer, Quantitative 2.11 H (0.0-0.59) mg/LFEU Sodium 141 (135-145) mmol/L Potassium 4.4 (3.5-5.3) mmol/L Chloride 102 (100-110) mmol/L Carbon Dioxide 35 H (21-32) mmol/L BUN 25 H (7-18) mg/dL Creatinine 1.0 (0.55-1.02) mg/dL Est Cr Clr Drug Dosing TNP Estimated GFR (MDRD) 54 L (>60) BUN/Creatinine Ratio 25.0 H (9-20) Glucose 109 (80-116) mg/dL Calcium 8.3 L (8.6-10.2) mg/dL C-Reactive Protein (0.5-0.9) mg/dL 07/13/18 Range/Units 21:30 WBC (4.5-12.0) X10-3/uL RBC (3.23-5.20) x10(6)uL Hgb (11.5-15.5) g/dL Hct (30.0-51.3) % MCV (80-96) fL MCH (27.7-33.6) pg MCHC (32.2-35.4) g/dL RDW (11.5-15.5) % Plt Count (125-369) X10(3)uL MPV (7.4-10.4) fL Neut % (Auto) (46-82) % Lymph % (Auto) (13-37) % [place] % (Auto) (4-12) % Eos % (Auto) (1.0-5.0) % Baso % (Auto) (0-2) % Neut # (Auto) (1.6-8.3) # Lymph # (Auto) (0.6-5.0) # [place] # (Auto) (0.0-1.3) # Eos # (Auto) (0.0-0.8) # Baso # (Auto) (0.0-0.2) # D-Dimer, Quantitative (0.0-0.59) mg/LFEU Sodium (135-145) mmol/L Potassium (3.5-5.3) mmol/L Chloride (100-110) mmol/L Carbon Dioxide (21-32) mmol/L BUN (7-18) mg/dL Creatinine (0.55-1.02) mg/dL Est Cr Clr Drug Dosing Estimated GFR (MDRD) (>60) BUN/Creatinine Ratio (9-20) Glucose (80-116) mg/dL Calcium (8.6-10.2) mg/dL C-Reactive Protein 1.0 H (0.5-0.9) mg/dL Meds: Medications Discontinued Medications Generic Name Dose Route Start Last Admin Trade Name Freq PRN Reason Stop Dose Admin Prednisone 40 mg 07/13/18 21:53 Prednisone PO 07/13/18 21:54 ONETIME ONE Departure - Departure Time of Disposition: 22:01 Disposition: Home, Self-Care 01 Condition: Fair Clinical Impression: COPD (chronic obstructive pulmonary disease) Qualifiers: COPD type: unspecified COPD Qualified Code(s): J44.9 - Chronic obstructive pulmonary disease, unspecified - Discharge Information *PRESCRIPTION DRUG MONITORING PROGRAM REVIEWED*: Not Applicable *COPY OF PRESCRIPTION DRUG MONITORING REPORT IN PATIENT LULU: Not Applicable Prescriptions: predniSONE 20 mg PO DAILY #8 tab Referrals: PCP,None [Primary Care Provider] - Forms: ED Department Discharge - Problem List & Annotations (1) COPD (chronic obstructive pulmonary disease) SNOMED Code(s): 65340600 Code(s): J44.9 - CHRONIC OBSTRUCTIVE PULMONARY DISEASE, UNSPECIFIED Status : Acute Current Visit: Yes Annotation/Comment:: I dispensed Prednisone 40 mg qd for a total of 4 additional days. Qualifiers: COPD type: unspecified COPD Qualified Code(s): J44.9 - Chronic obstructive pulmonary disease, unspecified - Problem List Review Problem List Initiated/Reviewed/Updated: Yes - Assessment/Plan Plan: Follow up with PCP.
[2018-07-13] MEDS: predniSONE 20 MG Tab PO ONE (22:04)
[2018-07-13 23:29] VITALS: BP 125/83
== END 2018-07-13 22:24 | disposition home or self-care (01) ==
LOC: FB.ED 20:58
DX: J44.9 Chronic obstructive pulmonary disease, unspecified (principal); Z88.0 Allergy status to penicillin; Z91.040 Latex allergy status; Z79.899 Other long term (current) drug therapy; Z79.82 Long term (current) use of aspirin
CPT/HCPCS: 36415; 80048; 85025; 85379; 86140; 99283; A9270

== ENCOUNTER 2018-10-21 17:32 | Emergency (ER) | payer MEDICARE, OTHER ==
--- NOTE | 2018-10-21 17:58 | EDM.PDOC ---
ED HPI GENERAL MEDICAL PROBLEM - General Stated Complaint: CHEST PAIN Time Seen by Provider: 10/21/18 17:50 Source of Information: Reports: Patient History Limitations: Reports: No Limitations - History of Present Illness INITIAL COMMENTS - FREE TEXT/NARRATIVE: 78-year-old female who reports that at approximately 2 PM today while she was sitting and playing bingo she developed a cramping like pain in her left chest. It was mild initially and she did go to visit her daughter following this and she was still having pain at that time as well. There was quite a bit of stress related to her grandchild and the daughter thought that this may be stress related and gave her mother half of a marijuana type cigarette. She reports that it did make her symptoms better but the pain did not completely go away. She went home and continued to have the pain and laid down and developed worsening of her pain with an increase of the pain from a 2/10 to a 4/10 and also with pain in her left jaw. This prompted her to call a taxi to come to the hospital for evaluation. She reported that while she was waiting on the taxi, ( at approximately 5 PM) the pain went away. She is pain-free now. Anastasiia presented to the walk-in clinic and was brought over here for ongoing evaluation. She denies any neck pain, arm pain or back pain. She had no nausea or vomiting associated with this. She had no shortness of breath associated with this. He is O2 dependent related to her COPD on 2 L/m via nasal cannula of oxygen. She reports she had a similar pain as this a few months ago and it lasted for approximately 15 minutes. She was followed by her primary provider and was referred to a [facility] in [place] and she had a nuclear medicine stress test that she states was normal. There are no other associated signs or symptoms. There are no other modifying factors. 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: Other (see below) (As above) - Related Data Allergies Allergy/AdvReac Type Severity Reaction Status Date / Time Penicillins Allergy Severe Hives Verified 10/21/18 17:42 latex Allergy Rash Verified 10/21/18 17:42 Home Meds: Home Meds Calcium Carbonate [Calcium] 500 mg PO DAILY 12/05/12 [History] FLUoxetine 10 mg PO DAILY 12/05/12 [History] Lutein/Minerals/Vit A,C & E [Ocuvite] 1 tab PO DAILY 12/05/12 [History] Multivitamins 1 each PO DAILY 12/05/12 [History] Zinc Gluconate [Zinc] 1 tab PO DAILY 12/05/12 [History] Furosemide [Lasix] 40 mg PO DAILY 11/02/16 [History] Aspirin [Halfprin] 81 mg PO DAILY 06/20/17 [History] Cyanocobalamin (Vitamin B12) [Vitamin B12] 1,000 mcg PO DAILY 06/20/17 [History] Budesonide [Pulmicort] 1 ampule INH BID 08/15/17 [History] Ibuprofen 400 mg PO Q4H PRN 08/15/17 [History] Acetaminophen/Diphenhydramine [Tylenol Pm Ex-Strength Caplet] 1 each PO BEDTIME 09/26/17 [History] Albuterol [Ventolin HFA] 2 puff .XX Q3H PRN 09/26/17 [History] Potassium Chloride 10 meq PO DAILY 09/26/17 [History] Tiotropium [Spiriva Handihaler] 18 mcg DAILY 09/26/17 [History] Albuterol/Ipratropium [DuoNeb 3.0-0.5 MG/3 ML] 3 ml .XX TID 10/21/18 [History] Past Medical History HEENT History: Reports: Impaired Vision Other HEENT History: Wears glasses. 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 Cardiovascular Surgical History: Reports: Other (See Below) Other Cardiovascular Surgeries/Procedures: Vein stripping procedure 2. GI Surgical History: Reports: Appendectomy, Bariatric Procedure, Cholecystectomy , Colon, Hernia Repair/Other, Other (See Below) Other GI Surgeries/Procedures: Bowel obstruction. Female Surgical History: Reports: Hysterectomy Social & Family History - Tobacco Use Smoking Status *Q: Former Smoker (Quit 10 months ago but was a smoker for 60 years prior to that.) - Caffeine Use Caffeine Use: Reports: Coffee, Other Other Caffeine Use: diet pop. - Alcohol Use Alcohol Use History: No - Living Situation & Occupation Occupation: Retired Social History Comment: Presents to the emergency department from the walk-in clinic. She arrived to the hospital via taxi. ED ROS GENERAL - Review of Systems Review Of Systems: See Below Constitutional: Reports: No Symptoms HEENT: Reports: Other (Transient left jaw pain) Respiratory: Reports: No Symptoms Cardiovascular: Reports: Chest Pain GI/Abdominal: Reports: No Symptoms : Reports: No Symptoms Musculoskeletal: Reports: No Symptoms Skin: Reports: No Symptoms Neurological: Reports: No Symptoms Hematologic/Lymphatic: Reports: No Symptoms Immunologic: Reports: No Symptoms ED EXAM, GENERAL - Physical Exam Exam: See Below Exam Limited By: No Limitations General Appearance: Alert, WD/WN, No Apparent Distress Eye Exam: Bilateral Eye: EOMI, Normal Inspection, PERRL Ears: Normal External Exam Ear Exam: Bilateral Ear: Auricle Normal Nose: Normal Inspection, Normal Mucosa, No Blood Throat/Mouth: Normal Inspection, Normal Oropharynx, Normal Voice, No Airway Compromise Head: Atraumatic, Normocephalic Neck: Normal Inspection, Supple, Non-Tender, Full Range of Motion Respiratory/Chest: No Respiratory Distress, Lungs Clear, Normal Breath Sounds, No Accessory Muscle Use, Chest Non-Tender Cardiovascular: Normal Peripheral Pulses, Regular Rate, Rhythm, No JVD Peripheral Pulses: 2+: Radial (L), Radial (R), Dorsalis Pedis (L), Dorsalis Pedis (R) GI/Abdominal: Normal Bowel Sounds, Soft, Non-Tender, No Mass Back Exam: Normal Inspection Extremities: Normal Inspection, Normal Range of Motion, Non-Tender, Normal Capillary Refill, No Pedal Edema Neurological: Alert, Oriented, CN II-XII Intact, Normal Cognition, No Motor/ Sensory Deficits Skin Exam: Warm, Dry, Intact, Normal Color, No Rash EKG INTERPRETATION EKG Date: 10/21/18 Time: 17:34 Rhythm: NSR [place]: LAD-Left [place] Deviation P-Wave: Present QRS: Wide ST-T: Normal QT: Normal Comparison: No Change (No change from EKG performed on 09/26/2017. There was no STEMI pattern) Course - Vital Signs Last Recorded V/S: Last Vital Signs Temp 35.9 C 10/21/18 17:32 Pulse 76 10/21/18 17:32 Resp 20 10/21/18 17:32 BP 99/65 10/21/18 17:32 Pulse Ox 100 10/21/18 17:32 - Orders/Labs/Meds Orders: Active Orders 24 hr Category Date Time Status EKG Documentation Completion [RC] ASDIRECTED Care 10/21/18 18:01 Active Chest 1V Frontal [CR] Stat Exams 10/21/18 18:00 Taken Sodium Chloride 0.9% [Saline Flush] Med 10/21/18 18:00 Active 10 ml FLUSH ASDIRECTED PRN Peripheral IV Insertion Adult [OM.PC] Routine Oth 10/21/18 18:00 Ordered EKG 12 Lead [EK] Routine Ther 10/21/18 18:00 Ordered Medication Orders Sodium Chloride (Saline Flush) 10 ml FLUSH ASDIRECTED PRN PRN Reason: Keep Vein Open Last Admin: 10/21/18 18:30 Dose: 10 ml Labs: Laboratory Tests 10/21/18 10/21/18 10/21/18 Range/Units 17:44 17:44 18:00 WBC 7.7 (4.5-12.0) X10-3/uL RBC 4.44 (3.23-5.20) x10(6)uL Hgb 14.2 (11.5-15.5) g/dL Hct 41.8 (30.0-51.3) % MCV 94.2 (80-96) fL MCH 31.9 (27.7-33.6) pg MCHC 33.9 (32.2-35.4) g/dL RDW 14.0 (11.5-15.5) % Plt Count 310 (125-369) X10(3)uL MPV 8.4 (7.4-10.4) fL Neut % (Auto) 61.7 (46-82) % Lymph % (Auto) 19.5 (13-37) % Elk % (Auto) 7.1 (4-12) % Eos % (Auto) 8 H (1.0-5.0) % Baso % (Auto) 4 H (0-2) % Neut # (Auto) 4.8 (1.6-8.3) # Lymph # (Auto) 1.5 (0.6-5.0) # Elk # (Auto) 0.5 (0.0-1.3) # Eos # (Auto) 0.6 (0.0-0.8) # Baso # (Auto) 0.3 H (0.0-0.2) # Sodium 138 (135-145) mmol/L Potassium 3.7 (3.5-5.3) mmol/L Chloride 100 (100-110) mmol/L Carbon Dioxide 34 H (21-32) mmol/L BUN 26 H (7-18) mg/dL Creatinine 0.9 (0.55-1.02) mg/dL Est Cr Clr Drug Dosing 47.10 mL/min Estimated GFR (MDRD) > 60 (>60) BUN/Creatinine Ratio 28.9 H (9-20) Glucose 90 (80-116) mg/dL Calcium 9.0 (8.6-10.2) mg/dL Magnesium 2.1 (1.8-2.5) mg/dL Total Bilirubin 0.3 (0.1-1.3) mg/dL AST 19 (5-25) IU/L ALT 26 (12-36) U/L Alkaline Phosphatase 127 H (56-112) IU/L Troponin I < 0.017 L (<0.017-0.056) ng/mL Total Protein 6.3 (6.0-8.0) g/dL Albumin 3.4 (3.2-4.6) g/dL Globulin 2.9 g/dL Albumin/Globulin Ratio 1.2 10/21/18 Range/Units 20:00 WBC (4.5-12.0) X10-3/uL RBC (3.23-5.20) x10(6)uL Hgb (11.5-15.5) g/dL Hct (30.0-51.3) % MCV (80-96) fL MCH (27.7-33.6) pg MCHC (32.2-35.4) g/dL RDW (11.5-15.5) % Plt Count (125-369) X10(3)uL MPV (7.4-10.4) fL Neut % (Auto) (46-82) % Lymph % (Auto) (13-37) % Elk % (Auto) (4-12) % Eos % (Auto) (1.0-5.0) % Baso % (Auto) (0-2) % Neut # (Auto) (1.6-8.3) # Lymph # (Auto) (0.6-5.0) # Elk # (Auto) (0.0-1.3) # Eos # (Auto) (0.0-0.8) # Baso # (Auto) (0.0-0.2) # Sodium (135-145) mmol/L Potassium (3.5-5.3) mmol/L Chloride (100-110) mmol/L Carbon Dioxide (21-32) mmol/L BUN (7-18) mg/dL Creatinine (0.55-1.02) mg/dL Est Cr Clr Drug Dosing mL/min Estimated GFR (MDRD) (>60) BUN/Creatinine Ratio (9-20) Glucose (80-116) mg/dL Calcium (8.6-10.2) mg/dL Magnesium (1.8-2.5) mg/dL Total Bilirubin (0.1-1.3) mg/dL AST (5-25) IU/L ALT (12-36) U/L Alkaline Phosphatase (56-112) IU/L Troponin I < 0.017 L (<0.017-0.056) ng/mL Total Protein (6.0-8.0) g/dL Albumin (3.2-4.6) g/dL Globulin g/dL Albumin/Globulin Ratio Meds: Medications Generic Name Dose Route Start Last Admin Trade Name Freq PRN Reason Stop Dose Admin Sodium Chloride 10 ml 10/21/18 18:00 10/21/18 18:30 Saline Flush FLUSH 10 ml ASDIRECTED PRN Administration Keep Vein Open Discontinued Medications Generic Name Dose Route Start Last Admin Trade Name Freq PRN Reason Stop Dose Admin Aspirin 324 mg 10/21/18 18:01 10/21/18 18:50 Aspirin PO 10/21/18 18:02 Not Given ONETIME ONE Aspirin 243 mg 10/21/18 18:47 10/21/18 18:52 Aspirin PO 10/21/18 18:48 243 mg ONETIME ONE Administration - Radiology Interpretation Free Text/Narrative:: Portal chest x-ray shows no acute abnormality and no change from previous. - Re-Assessments/Exams Free Text/Narrative Re-Assessment/Exam: 10/21/18 19:00: Patient remains chest pain-free. Her initial troponin was normal. Her EKG was reassuring. I will continue to monitor the patient and repeat her troponin at 8 PM which would represent a 6 hour post-onset of pain troponin. I discussed this with the patient and if her repeat troponin is normal and she remained chest pain-free, she will be able to be discharged home. She is in favor of this plan. 10/21/18 20:35: Patient's initial troponin was negative. Her EKG was reassuring (unchanged from previous and no current of ischemia or injury present). Her chest x-ray was normal as well. This was after 3 hours of ongoing chest discomfort and a small episode of left jaw discomfort. I discussed options with the patient and she would consent to stay for another few hours to repeat her troponin. The repeat troponin was negative as well. She has remained chest pain- free for the entire time she has been in the emergency department. She has been vitally stable while here. TN has been ruled out and the patient is very desirous of going home. Departure - Departure Time of Disposition: 20:35 Disposition: Home, Self-Care 01 Condition: Good (Stable) Clinical Impression: Ruled out for myocardial infarction Chest pain Qualifiers: Chest pain type: unspecified Qualified Code(s): R07.9 - Chest pain, unspecified Instructions: Nonspecific Chest Pain, [id number] Additional Instructions: Your blood tests were normal. A repeat of your heart enzyme tests 6 hours after onset of your chest pain was normal. Your EKG was normal and unchanged from previous. Your chest x-ray was normal. You do not appear to have had a heart attack. I am unsure of the cause of your chest pain but it does not appear to be related to your heart at this point. As we discussed it could be acid reflux. You should follow-up with your primary doctor this next week for recheck. Back to the emergency department for recurrent chest pain lasting longer than 5 minutes, difficulty breathing, vomiting or any other concerning sign or symptom. - My Orders Last 24 Hours: My Active Orders 10/21/18 18:00 Chest 1V Frontal [CR] Stat Sodium Chloride 0.9% [Saline Flush] 10 ml FLUSH ASDIRECTED PRN Peripheral IV Insertion Adult [OM.PC] Routine EKG 12 Lead [EK] Routine 10/21/18 18:01 EKG Documentation Completion [RC] ASDIRECTED - Assessment/Plan Last 24 Hours: My Active Orders 10/21/18 18:00 Chest 1V Frontal [CR] Stat Sodium Chloride 0.9% [Saline Flush] 10 ml FLUSH ASDIRECTED PRN Peripheral IV Insertion Adult [OM.PC] Routine EKG 12 Lead [EK] Routine 10/21/18 18:01 EKG Documentation Completion [RC] ASDIRECTED
[2018-10-21] MEDS ORDERED: Sodium Chloride 0.9% 10 ML Syringe FLUSH PRN (18:00)
[2018-10-21] MEDS ORDERED: Aspirin 81 MG Tab.Chew PO ONE ×2 (18:01→18:47)
[2018-10-21 20:55] VITALS: BP 127/61; PULSE 67
--- NOTE | 2018-10-22 11:37 | CR ---
INDICATION: Chest pain. CHEST: Portable AP upright view of the chest, 10/21/18, was compared with 09/25 and 08/13/17. The heart did not appear enlarged. The aorta is slightly tortuous with calcification in the arch. Overlying EKG leads are noted. A definite active infiltrate or effusion was not identified. Findings suggesting COPD are noted, likely progressive compared with previous study. A moderate dextroconvex scoliosis of the thoracic spine is noted. Interstitial markings are again noted and may be slightly more prominent than on the previous study. No definite evidence of CHF is seen. The interstitial markings may be on the basis of fibrosis - correlate clinically. IMPRESSION: 1. No definite acute process - interstitial markings are somewhat prominent, which should be correlated clinically. 2. ASD aorta. 3. Scoliosis. 4. Probable COPD. MTDD
== END 2018-10-21 21:03 | disposition home or self-care (01) ==
LOC: FB.ED 17:32
DX: R07.9 Chest pain, unspecified (principal); J44.9 Chronic obstructive pulmonary disease, unspecified; Z88.0 Allergy status to penicillin; Z91.040 Latex allergy status; Z79.899 Other long term (current) drug therapy; Z87.891 Personal history of nicotine dependence; Z79.82 Long term (current) use of aspirin
CPT/HCPCS: 36415; 71045; 80053; 83735; 84484; 85025; 93005; 99285; A9270; 93010; 99284

== ENCOUNTER 2019-03-19 17:32 | Emergency (ER) | payer MEDICARE, OTHER, SELFPAY ==
[2019-03-19] MEDS ORDERED: Azithromycin 250 MG Tab PO ONE (17:33)
[2019-03-19] MEDS ORDERED: predniSONE 20 MG Tab PO ONE (17:33)
[2019-03-19] MEDS ORDERED: methylPREDNISolone Sodium Succinate 125 MG/2 ML SDV IM ONE (17:51)
--- NOTE | 2019-03-19 17:51 | EDM.PDOC ---
ED HPI GENERAL MEDICAL PROBLEM - General Chief Complaint: ENT Problem Stated Complaint: SINUS INFECTION Time Seen by Provider: 03/19/19 17:35 Source of Information: Reports: Patient History Limitations: Reports: No Limitations - History of Present Illness INITIAL COMMENTS - FREE TEXT/NARRATIVE: pt with Hx of COPD, O2 dependant comes from home with c/ chest congestion productive cough and nasal congestion X 2 days, report worsening of chronic dyspnea, denies chest pain , fever, chills, or any other associated sx or medical concerns. pt quit smoking about a year ago. - Related Data Allergies Allergy/AdvReac Type Severity Reaction Status Date / Time Penicillins Allergy Severe Hives Verified 03/19/19 17:54 latex Allergy Rash Verified 03/19/19 17:54 Home Meds: Home Meds Calcium Carbonate [Calcium] 500 mg PO DAILY 12/05/12 [History] FLUoxetine 10 mg PO DAILY 12/05/12 [History] Lutein/Minerals/Vit A,C & E [Ocuvite] 1 tab PO DAILY 12/05/12 [History] Multivitamins 1 each PO DAILY 12/05/12 [History] Zinc Gluconate [Zinc] 1 tab PO DAILY 12/05/12 [History] Furosemide [Lasix] 40 mg PO DAILY 11/02/16 [History] Aspirin [Halfprin] 81 mg PO DAILY 06/20/17 [History] Cyanocobalamin (Vitamin B12) [Vitamin B12] 1,000 mcg PO DAILY 06/20/17 [History] Budesonide [Pulmicort] 1 ampule INH BID 08/15/17 [History] Ibuprofen 400 mg PO Q4H PRN 08/15/17 [History] Acetaminophen/Diphenhydramine [Tylenol Pm Ex-Strength Caplet] 1 each PO BEDTIME 09/26/17 [History] Albuterol [Ventolin HFA] 2 puff INH Q3H PRN 09/26/17 [History] Potassium Chloride 10 meq PO DAILY 09/26/17 [History] Tiotropium [Spiriva Handihaler] 18 mcg DAILY 09/26/17 [History] Albuterol/Ipratropium [DuoNeb 3.0-0.5 MG/3 ML] 3 ml NEB TID 10/21/18 [History] Azithromycin [Zithromax] 250 mg PO DAILY #6 tab 03/19/19 [Rx] predniSONE [Prednisone] 20 mg PO BID #5 tablet 03/19/19 [Rx] Past Medical History HEENT History: Reports: Impaired Vision Other HEENT History: Wears glasses. Cardiovascular History: Reports: None Respiratory History: Reports: COPD (Chronically on oxygen at 2 L/m via nasal cannula for the past 10 months.) Other Respiratory History: smoker for 60 years. Gastrointestinal History: Reports: Bowel Obstruction RADIO PERSONALITY History: Reports: Other RADIO PERSONALITY History: Musculoskeletal History: Reports: Back Pain, Chronic Psychiatric History: Reports: Anxiety, Depression Endocrine/Metabolic History: Reports: None Oncologic (Cancer) History: Reports: Uterine - Infectious Disease History Infectious Disease History: Reports: Measles - Past Surgical History HEENT Surgical History: Reports: Cataract Surgery, Other (See Below) Other HEENT Surgeries/Procedures: Cornea transplant. Cardiovascular Surgical History: Reports: Other (See Below) Other Cardiovascular Surgeries/Procedures: Vein stripping procedure 2. GI Surgical History: Reports: Appendectomy, Bariatric Procedure, Cholecystectomy , Colon, Hernia Repair/Other, Other (See Below) Other GI Surgeries/Procedures: Bowel obstruction. Female Surgical History: Reports: Hysterectomy Social & Family History - Family History Family Medical History: Noncontributory - Caffeine Use Caffeine Use: Reports: Coffee, Other Other Caffeine Use: diet pop. - Living Situation & Occupation Occupation: Retired ED ROS GENERAL - Review of Systems Review Of Systems: See Below Constitutional: Reports: No Symptoms HEENT: Reports: No Symptoms Respiratory: Reports: Shortness of Breath, Wheezing, Cough, Sputum Cardiovascular: Reports: No Symptoms GI/Abdominal: Reports: No Symptoms. Denies: Abdominal Pain Musculoskeletal: Reports: No Symptoms Skin: Reports: No Symptoms Neurological: Reports: No Symptoms ED EXAM, GENERAL - Physical Exam Exam: See Below Exam Limited By: No Limitations General Appearance: Alert, No Apparent Distress, Mild Distress Eye Exam: Bilateral Eye: Normal Inspection Ears: Normal External Exam, Normal TMs Nose: Normal Inspection Throat/Mouth: Normal Inspection, Normal Oropharynx Head: Atraumatic, Normocephalic Neck: Normal Inspection, Supple Respiratory/Chest: No Respiratory Distress, Wheezing Cardiovascular: Normal Peripheral Pulses, Regular Rate, Rhythm GI/Abdominal: Normal Bowel Sounds, Soft, Non-Tender Back Exam: Normal Inspection, Full Range of Motion Extremities: Normal Inspection, Normal Range of Motion, Non-Tender, No Pedal Edema Neurological: Alert, Oriented, CN II-XII Intact, Normal Cognition, Normal Gait, No Motor/Sensory Deficits Psychiatric: Normal Affect Skin Exam: Warm Course - Vital Signs Text/Narrative:: CXR show no acute findings, pt has COPD exacerbation and she is stable for out patient mng. pt was given solumedrol 125 IM here also started on zpack and prednisone 20 BID X 5 days. pt to follow with PCP in 2-3 days for re-check. Last Recorded V/S: Last Vital Signs Temp 36.8 C 03/19/19 17:32 Pulse 78 03/19/19 17:32 Resp 20 03/19/19 17:32 BP 121/61 03/19/19 17:32 Pulse Ox 93 L 03/19/19 17:32 - Orders/Labs/Meds Orders: Active Orders 24 hr Category Date Time Status Chest 1V Frontal [CR] Stat Exams 03/19/19 17:51 Taken Meds: Medications Discontinued Medications Generic Name Dose Route Start Last Admin Trade Name Eder PRN Reason Stop Dose Admin Methylprednisolone Sodium Succinate 125 mg 03/19/19 17:51 03/19/19 18:04 Solu-Medrol IM 03/19/19 17:52 125 mg ONETIME ONE Administration Departure - Departure Time of Disposition: 18:38 Disposition: Home, Self-Care 01 Clinical Impression: COPD exacerbation - Discharge Information Prescriptions: Azithromycin [Zithromax] 250 mg PO DAILY #6 tab predniSONE [Prednisone] 20 mg PO BID #5 tablet Referrals: Belen Elaine, TYPEWR[employer] OPERATOR [employer] [Primary Care Provider] - Forms: ED Department Discharge Sepsis Event Note - Focused Exam Vital Signs: Vital Signs Temp Pulse Resp BP Pulse Ox 03/19/19 17:32 36.8 C 78 20 121/61 93 L Date Exam was Performed: 03/19/19 Time Exam was Performed: 18:36 - My Orders Last 24 Hours: My Active Orders 03/19/19 17:51 Chest 1V Frontal [CR] Stat - Assessment/Plan Last 24 Hours: My Active Orders 03/19/19 17:51 Chest 1V Frontal [CR] Stat
[2019-03-19 19:22] VITALS: BP 134/86; PULSE 98
--- NOTE | 2019-03-21 14:24 | CR ---
INDICATION: Cough. CHEST, 1 VIEW: An AP portable upright view of the chest 03/19/19 was compared with 10/21/18 and 09/26/17. The heart did not appear grossly enlarged but was mildly prominent - near the upper limits of normal. The aorta is tortuous with calcification in the arch. Heavy markings are again noted at the lung bases, most likely fibrotic in nature , but making it difficult to exclude patchy bronchopneumonia, especially on the right. Pulmonary vasculature is somewhat prominent in the upper lung field on the left , raising question of a mild degree of pulmonary vascular congestion. This should be correlated clinically. This could be on the basis of fluid overload or other noncardiac cause as the heart does not grossly enlarge. Findings compatible with COPD are also noted. IMPRESSION: 1. No definite acute process but difficult to exclude a mild degree of pulmonary vascular congestion. This could be cardiac due to acute myocardial event or noncardiac cause, including fluid overload - correlate clinically. 2. Heavy markings compared with pulmonary fibrosis making it difficult to exclude minimal patchy bronchial pneumonia, especially at the right lung base. 3. Probable COPD. 4. ASD aorta - probable ASHD as the heart appears to be at the upper limits of normal in size. MTDD
== END 2019-03-19 19:15 | disposition home or self-care (01) ==
LOC: FB.ED 17:32
DX: J44.1 Chronic obstructive pulmonary disease with (acute) exacerbation (principal); F41.9 Anxiety disorder, unspecified; F32.9 Major depressive disorder, single episode, unspecified; Z88.0 Allergy status to penicillin; Z91.040 Latex allergy status; Z87.891 Personal history of nicotine dependence; Z79.82 Long term (current) use of aspirin; Z79.51 Long term (current) use of inhaled steroids; Z79.899 Other long term (current) drug therapy
CPT/HCPCS: 71045; 87804; 96372; 99284; 99285; A9270; J2930

== ENCOUNTER 2019-04-16 17:02 | Observation (INO) | payer MEDICARE ==
--- NOTE | 2019-04-16 17:21 | PCM.HP.2 ---
H&P History of Present Illness - General Date of Service: 04/16/19 Admit Problem/Dx: Admission Diagnosis/Problem Admission Diagnosis/Problem Short of breath on exertion Source of Information: Patient, Family - History of Present Illness Initial Comments - Free Text/Narative: Nichol presented to [facility] today for 3 day history of shortness of breath. She had been advised to take extra Lasix if her weight went up but hadn't weighed herself. She was up 8 lbs today from her normal weight of 160. Her last ECHO was in 2015, EF was 60-65%, showed grade 1 diastolic dysfunction but preserve systolic function. She denies any fevers, chills, chest pain. Has been having nasal congestion, productive cough of white/yellow-tinged sputum. Denies any nausea, vomiting, diarrhea or abdominal pain. No dysuria, hematuria or frequency. She does have increased edema of her legs, history of varicose veins and venous ulcer on left ankle(has scarring/discoloration from this). Normally wears oxygen at home 3.5 L and pulse oximetry said 90-93% but she wasn' t sure that was right because she was so short of breath. She was 84% on 2L in the clinic, increased to 3L and she came up to 88%, dropped with activity. States she is getting new PFTs done within the next month. - Related Data Allergies/Adverse Reactions: Allergies Allergy/AdvReac Type Severity Reaction Status Date / Time Penicillins Allergy Severe Hives Verified 03/19/19 17:54 latex Allergy Rash Verified 03/19/19 17:54 Home Medications: Home Meds Calcium Carbonate [Calcium] 500 mg PO DAILY 12/05/12 [History] FLUoxetine 10 mg PO DAILY 12/05/12 [History] Lutein/Minerals/Vit A,C & E [Ocuvite] 1 tab PO DAILY 12/05/12 [History] Multivitamins 1 each PO DAILY 12/05/12 [History] Zinc Gluconate [Zinc] 1 tab PO DAILY 12/05/12 [History] Furosemide [Lasix] 40 mg PO DAILY 11/02/16 [History] Aspirin [Halfprin] 81 mg PO DAILY 06/20/17 [History] Cyanocobalamin (Vitamin B12) [Vitamin B12] 1,000 mcg PO DAILY 06/20/17 [History] Budesonide [Pulmicort] 1 ampule INH BID 08/15/17 [History] Ibuprofen 400 mg PO Q4H PRN 08/15/17 [History] Acetaminophen/Diphenhydramine [Tylenol Pm Ex-Strength Caplet] 1 each PO BEDTIME 09/26/17 [History] Albuterol [Ventolin HFA] 2 puff INH Q3H PRN 09/26/17 [History] Potassium Chloride 10 meq PO DAILY 09/26/17 [History] Tiotropium [Spiriva Handihaler] 18 mcg DAILY 09/26/17 [History] Albuterol/Ipratropium [DuoNeb 3.0-0.5 MG/3 ML] 3 ml NEB TID 10/21/18 [History] Azithromycin [Zithromax] 250 mg PO DAILY #6 tab 03/19/19 [Rx] predniSONE [Prednisone] 20 mg PO BID #5 tablet 03/19/19 [Rx] Past Medical History HEENT History: Reports: Impaired Vision Other HEENT History: Wears glasses. Cardiovascular History: Reports: None Respiratory History: Reports: COPD (Chronically on oxygen at 3.5 L/m via nasal cannula for the past 10 months.) Other Respiratory History: smoker for 60 years. Gastrointestinal History: Reports: Bowel Obstruction ARTIST MODEL History: Reports: Other OB/BYN History: Musculoskeletal History: Reports: Back Pain, Chronic Psychiatric History: Reports: Anxiety, Depression Endocrine/Metabolic History: Reports: None Oncologic (Cancer) History: Reports: Uterine - Infectious Disease History Infectious Disease History: Reports: Measles - Past Surgical History HEENT Surgical History: Reports: Cataract Surgery, Other (See Below) Other HEENT Surgeries/Procedures: Cornea transplant. Cardiovascular Surgical History: Reports: Other (See Below) Other Cardiovascular Surgeries/Procedures: Vein stripping procedure 2. GI Surgical History: Reports: Appendectomy, Bariatric Procedure, Cholecystectomy , Colon, Hernia Repair/Other, Other (See Below) Other GI Surgeries/Procedures: Bowel obstruction. Female Surgical History: Reports: Hysterectomy Social & Family History - Family History Family Medical History: Noncontributory - Caffeine Use Caffeine Use: Reports: Coffee, Other Other Caffeine Use: diet pop. - Living Situation & Occupation Occupation: Retired H&P Review of Systems - Review of Systems: Review Of Systems: Comprehensive ROS is negative, except as noted in HPI. Exam - Exam Exam: See Below - Exam Quality Assessment: Supplemental Oxygen General: Alert, Oriented, Cooperative, Mild Distress HEENT: PERRLA, Conjunctiva Clear, Hearing Intact, Nares Patent, Normal Nasal Septum, Posterior Pharynx Clear, TMs Clear (right, left obscured by cerumen) Neck: Supple, Trachea Midline. No: Lymphadenopathy Lungs: Normal Respiratory Effort, Decreased Breath Sounds, Crackles (bibasilar) , Wheezing Cardiovascular: Regular Rate, Regular Rhythm GI/Abdominal Exam: Normal Bowel Sounds, Soft, Non-Tender, No Distention (Female) Exam: Deferred Rectal (Female) Exam: Deferred Extremities: Pedal Edema (2+ bilateral ankles, 3+ pretibial. ) Peripheral Pulses: 2+: Radial (L), Radial (R) Skin: Warm, Dry, Intact, Other (scarring from previous venous ulcer on left medial ankle with surrounding post inflammatory hyperpigmentation.) Neuro Extensive - Mental Status: Alert, Oriented x3, Normal Mood/Affect - Problem List (1) Shortness of breath SNOMED Code(s): 754546804 ICD Code: R06.02 - SHORTNESS OF BREATH Status: Acute Current Visit: Yes (2) Peripheral edema SNOMED Code(s): 941054394 ICD Code: R60.9 - EDEMA, UNSPECIFIED Status: Acute Current Visit: Yes (3) Grade I diastolic dysfunction SNOMED Code(s): 6144271 ICD Code: I51.9 - HEART DISEASE, UNSPECIFIED Status: Acute Current Visit : Yes (4) COPD (chronic obstructive pulmonary disease) SNOMED Code(s): 26650063 ICD Code: J44.9 - CHRONIC OBSTRUCTIVE PULMONARY DISEASE, UNSPECIFIED Status : Acute Current Visit: No Problem Details: I dispensed Prednisone 40 mg qd for a total of 4 additional days. Qualifiers: COPD type: unspecified COPD Qualified Code(s): J44.9 - Chronic obstructive pulmonary disease, unspecified Problem List Initiated/Reviewed/Updated: Yes Orders Last 24hrs: Active Orders 24 hr Category Date Time Status Patient Status [ADT] Routine ADT 04/16/19 17:07 Ordered Antiembolic Devices [RC] .Routine Care 04/16/19 17:08 Ordered Cardiac Education [RC] Click to Edit Care 04/16/19 17:07 Ordered Communication Order [RC] ASDIRECTED Care 04/16/19 17:07 Ordered Oxygen Therapy [RC] ASDIRECTED Care 04/16/19 17:07 Ordered Pulse Oximetry [RC] PRN Care 04/16/19 17:07 Ordered Up With Assistance [RC] ASDIRECTED Care 04/16/19 17:07 Ordered VTE/DVT Education [RC] Click to Edit Care 04/16/19 17:08 Ordered Vital Signs [RC] Q4H Care 04/16/19 17:07 Ordered Regular Diet [DIET] Diet 04/16/19 Dinner Ordered Chest 2V [CR] Urgent Exams 04/16/19 17:07 Ordered CBC WITH AUTO DIFF [HEME] Urgent Lab 04/16/19 17:07 Ordered COMPREHENSIVE METABOLIC PN,CMP [CHEM] Urgent Lab 04/16/19 17:07 Ordered CULTURE BLOOD [BC] Urgent Lab 04/16/19 17:09 Ordered CULTURE BLOOD [BC] Urgent Lab 04/16/19 17:09 Ordered PRO B-TYPE NATRIUR PEPT,BNPPRO [CHEM] Urgent Lab 04/16/19 17:07 Ordered Albuterol/Ipratropium [DuoNeb 3.0-0.5 MG/3 ML] Med 04/16/19 21:00 Ordered 3 ml NEB QIDRT Furosemide [Lasix] Med 04/16/19 17:15 Ordered 40 mg IVPUSH Q12H Sodium Chloride 0.9% [Saline Flush] Med 04/16/19 17:07 Ordered 10 ml FLUSH ASDIRECTED PRN Blood Culture x2 Reflex Set [OM.PC] Urgent Oth 04/16/19 17:07 Ordered DVT/VTE Prophylaxis Reflex [OM.PC] Per Unit Routine Oth 04/16/19 17:07 Ordered Peripheral IV Insertion Adult [OM.PC] Routine Oth 04/16/19 17:07 Ordered Resuscitation Status Routine Resus Stat 04/16/19 17:07 Ordered Medication Orders Albuterol/Ipratropium (Duoneb 3.0-0.5 Mg/3 Ml) 3 ml NEB QIDRT ADRIANE Furosemide (Lasix) 40 mg IVPUSH Q12H ADRIANE Sodium Chloride (Saline Flush) 10 ml FLUSH ASDIRECTED PRN PRN Reason: Keep Vein Open Assessment/Plan Comment:: 1. Admit for observation: labs, chest x-ray, diuresis and further monitoring most likely CHF with some COPD exacerbation. 2. Lasix 40 mg IV bid, I&Os, daily weights. Last ECHO in 2015, will review [facility] chart to see if there is a more recent ECHO, if not would order one for Thursday as outpatient if discharged. 3. Regular diet. 4. Keep O2 between 88-92% to avoid CO2 retention. 5. DVT prophylaxis: TEDS 6. FULL CODE. will adjust treatments as necessary based on labs & x-ray findings. - Mortality Measure Prognosis:: Poor
[2019-04-16] MEDS ORDERED: Albuterol 0.083% 2.5 MG/3 ML Neb Soln INH PRN (17:22)
[2019-04-16] MEDS: Furosemide 100 MG/10 ML SDV IVPUSH SCH (17:55)
[2019-04-16] MEDS: Sodium Chloride 0.9% 10 ML Syringe FLUSH PRN ×2 (18:04→19:04)
[2019-04-16] MEDS ORDERED: Albuterol 8 GM Inhaler INH PRN (18:43)
[2019-04-16] MEDS ORDERED: methylPREDNISolone Sodium Succinate 125 MG/2 ML SDV IVPUSH SCH (18:45)
[2019-04-16] MEDS: Azithromycin 250 MG Tab PO SCH (19:53)
[2019-04-16] MEDS ORDERED: Acetaminophen/Diphenhydramine 500-25 MG Tab PO SCH (21:00)
[2019-04-16] MEDS ORDERED: Budesonide 0.5 MG/2 ML Neb Susp INH SCH (21:00)
[2019-04-16] MEDS ORDERED: Albuterol/Ipratropium 3.0-0.5 MG/3 ML Neb Soln NEB SCH (21:00)
[2019-04-16] MEDS ORDERED: Acetaminophen 500 MG Tab PO SCH (21:00)
[2019-04-16] MEDS ORDERED: diphenhydrAMINE 25 MG Cap PO SCH (21:00)
[2019-04-16] MEDS: Budesonide 0.5 MG/2 ML Neb Susp**OWN MED INH SCH (21:16)
[2019-04-16] MEDS: Albuterol/Ipratropium 3.0-0.5 MG/3 ML Neb Soln**OWN MED NEB SCH (21:17)
[2019-04-17] MEDS: Furosemide 100 MG/10 ML SDV IVPUSH SCH (04:16)
[2019-04-17] MEDS: Sodium Chloride 0.9% 10 ML Syringe FLUSH PRN ×2 (04:17→09:44)
[2019-04-17] MEDS: Budesonide 0.5 MG/2 ML Neb Susp**OWN MED INH SCH ×3 (05:54→20:31)
[2019-04-17] MEDS: Albuterol/Ipratropium 3.0-0.5 MG/3 ML Neb Soln**OWN MED NEB SCH ×4 (06:00→20:32)
[2019-04-17] MEDS ORDERED: acetaZOLAMIDE 500 MG Cap.ER PO ONE ×2 (08:18→09:00)
[2019-04-17] MEDS ORDERED: Aspirin 81 MG Tab.EC PO SCH (09:00)
[2019-04-17] MEDS ORDERED: MULTIVITAMIN PO SCH (09:00)
[2019-04-17] MEDS ORDERED: FLUoxetine 10 MG Cap PO SCH (09:00)
[2019-04-17] MEDS ORDERED: Cyanocobalamin (Vitamin B12) 1,000 MCG Tab PO SCH (09:00)
[2019-04-17] MEDS ORDERED: Beta-Carotene (Vitamin A) w/Vitamin C & E plus Minerals Tab PO SCH (09:00)
[2019-04-17] MEDS ORDERED: Multivitamin Tab PO SCH (09:00)
[2019-04-17] MEDS ORDERED: [UNRECOGNIZED DRUG - OTHER] PO SCH (09:00)
[2019-04-17] MEDS ORDERED: Tiotropium Inhaler 18 MCG Inhalation Powder Cap Kit of 5 INH SCH (09:00)
[2019-04-17] MEDS ORDERED: Potassium Chloride 10 MEQ Tab.ER PO SCH (09:00)
[2019-04-17] MEDS: Aspirin 81 MG Tab.EC**OWN MED PO SCH (09:32)
[2019-04-17] MEDS: [UNRECOGNIZED DRUG - OTHER] PO SCH (09:33)
[2019-04-17] MEDS: Potassium Chloride 10 MEQ Tab.ER**OWN MED PO SCH (09:33)
[2019-04-17] MEDS: FLUOXETINE 10 MG PO SCH (09:34)
[2019-04-17] MEDS: MULTIVITAMIN PO SCH (09:34)
[2019-04-17] MEDS: methylPREDNISolone Sodium Succinate 125 MG/2 ML SDV IVPUSH SCH (09:34)
[2019-04-17] MEDS: [UNRECOGNIZED DRUG - OTHER] PO SCH (09:34)
[2019-04-17] MEDS: ZINC GLUCONATE 50 MG PO SCH (09:35)
[2019-04-17] MEDS: Cyanocobalamin (Vitamin B12) 1,000 MCG Tab**OWN MED PO SCH (09:35)
[2019-04-17] MEDS: Azithromycin 250 MG Tab PO SCH (09:35)
[2019-04-17] MEDS ORDERED: Docusate Sodium 100 MG Cap PO PRN (11:18)
--- NOTE | 2019-04-17 11:25 | PCM.PN ---
- General Info Date of Service: 04/17/19 Admission Dx/Problem (Free Text): feeling better today, not as short of breath. Had some pills get stuck this morning, history of gastric bypass, she states this is not new and was able to get pills down. She has not had a bowel movement for a few days would like something to help. She sees Pulmonology on for PFTs. Nichol's daughter wants to discuss code status and power of bankruptcy attorney paperwork with social services analyst tomorrow as they do not have anything in place now. Edema is better in her legs. Weight down 5 lbs 163, was 168 yesterday in clinic. - Patient Data Vitals - Most Recent: Last Vital Signs Temp 97.7 F 04/17/19 08:46 Pulse 87 04/17/19 08:46 Resp 16 04/17/19 08:46 BP 105/64 04/17/19 08:46 Pulse Ox 92 L 04/17/19 08:46 Weight - Most Recent: 163 lb I&O - Last 24 Hours: Intake & Output 04/16/19 04/17/19 04/17/19 22:59 06:59 14:59 Intake Total 350 450 Output Total 2150 1900 Balance -1800 -1450 Lab Results Last 24 Hours: Laboratory Results - last 24 hr 04/16/19 04/16/19 04/16/19 Range/Units 17:30 17:30 17:30 WBC 5.4 (4.5-12.0) X10-3/uL RBC 4.12 (3.23-5.20) x10(6)uL Hgb 13.1 (11.5-15.5) g/dL Hct 39.6 (30.0-51.3) % MCV 96.2 H (80-96) fL MCH 31.7 (27.7-33.6) pg MCHC 33.0 (32.2-35.4) g/dL RDW 14.6 (11.5-15.5) % Plt Count 280 (125-369) X10(3)uL MPV 8.1 (7.4-10.4) fL Neut % (Auto) 67.0 (46-82) % Lymph % (Auto) 15.4 (13-37) % Isabela % (Auto) 9.0 (4-12) % Eos % (Auto) 7 H (1.0-5.0) % Baso % (Auto) 1 (0-2) % Neut # (Auto) 3.6 (1.6-8.3) # Lymph # (Auto) 0.8 (0.6-5.0) # Isabela # (Auto) 0.5 (0.0-1.3) # Eos # (Auto) 0.4 (0.0-0.8) # Baso # (Auto) 0.1 (0.0-0.2) # ABG pH (7.35-7.45) ABG pCO2 (35-45) mmHg ABG pO2 (83-108) mmHg ABG HCO3 (22-26) mmol/L ABG O2 Saturation (96-97) % ABG Base Excess (-2-2) Nico Test O2 Delivery Device Sodium 140 (135-145) mmol/L Potassium 4.1 (3.5-5.3) mmol/L Chloride 98 L (100-110) mmol/L Carbon Dioxide 41 H* (21-32) mmol/L BUN 20 H (7-18) mg/dL Creatinine 0.7 (0.55-1.02) mg/dL Est Cr Clr Drug Dosing TNP Estimated GFR (MDRD) > 60 (>60) BUN/Creatinine Ratio 28.6 H (9-20) Glucose 96 (80-116) mg/dL Calcium 9.1 (8.6-10.2) mg/dL Total Bilirubin 0.4 (0.1-1.3) mg/dL AST 22 D (5-25) IU/L ALT 19 D (12-36) U/L Alkaline Phosphatase 106 (56-112) IU/L NT-Pro-B Natriuret Pep 332 (<=450) pg/mL Total Protein 5.9 L (6.0-8.0) g/dL Albumin 3.4 (3.2-4.6) g/dL Globulin 2.5 g/dL Albumin/Globulin Ratio 1.4 04/16/19 04/17/19 Range/Units 19:00 06:20 WBC (4.5-12.0) X10-3/uL RBC (3.23-5.20) x10(6)uL Hgb (11.5-15.5) g/dL Hct (30.0-51.3) % MCV (80-96) fL MCH (27.7-33.6) pg MCHC (32.2-35.4) g/dL RDW (11.5-15.5) % Plt Count (125-369) X10(3)uL MPV (7.4-10.4) fL Neut % (Auto) (46-82) % Lymph % (Auto) (13-37) % Isabela % (Auto) (4-12) % Eos % (Auto) (1.0-5.0) % Baso % (Auto) (0-2) % Neut # (Auto) (1.6-8.3) # Lymph # (Auto) (0.6-5.0) # Isabela # (Auto) (0.0-1.3) # Eos # (Auto) (0.0-0.8) # Baso # (Auto) (0.0-0.2) # ABG pH 7.40 (7.35-7.45) ABG pCO2 68 H* (35-45) mmHg ABG pO2 70 L (83-108) mmHg ABG HCO3 41 H (22-26) mmol/L ABG O2 Saturation 93 L (96-97) % ABG Base Excess 12.3 H (-2-2) Nico Test Passed O2 Delivery Device Nasal cannula Sodium 141 (135-145) mmol/L Potassium 3.8 (3.5-5.3) mmol/L Chloride 98 L (100-110) mmol/L Carbon Dioxide 43 H* (21-32) mmol/L BUN 20 H (7-18) mg/dL Creatinine 0.7 (0.55-1.02) mg/dL Est Cr Clr Drug Dosing 63.01 Estimated GFR (MDRD) > 60 (>60) BUN/Creatinine Ratio 28.6 H (9-20) Glucose 154 H (80-116) mg/dL Calcium 8.9 (8.6-10.2) mg/dL Total Bilirubin (0.1-1.3) mg/dL AST (5-25) IU/L ALT (12-36) U/L Alkaline Phosphatase (56-112) IU/L NT-Pro-B Natriuret Pep (<=450) pg/mL Total Protein (6.0-8.0) g/dL Albumin (3.2-4.6) g/dL Globulin g/dL Albumin/Globulin Ratio Med Orders - Current: Current Medications Acetaminophen (Tylenol Extra Strength) 500 mg PO BEDTIME [facility] Last Admin: 04/16/19 21:30 Dose: 500 mg Albuterol (Proventil Neb Soln) 2.5 mg INH Q4H PRN PRN Reason: SOB / WHEEZING Last Admin: 04/16/19 18:09 Dose: 2.5 mg Albuterol (Ventolin Hfa) 0 gm INH Q3H PRN PRN Reason: Wheezing Albuterol/Ipratropium (Duoneb 3.0-0.5 Mg/3 Ml) 3 ml NEB QIDRT [facility] Last Admin: 04/17/19 06:00 Dose: 3 ml Aspirin (Halfprin) 81 mg PO DAILY [facility] Last Admin: 04/17/19 09:32 Dose: 81 mg Azithromycin (Zithromax) 250 mg PO DAILY [facility] Last Admin: 04/17/19 09:35 Dose: 250 mg Budesonide (Pulmicort) 0.5 mg INH BIDRT [facility] Last Admin: 04/17/19 06:01 Dose: Not Given Cyanocobalamin (Vitamin B12) 1,000 mcg PO DAILY [facility] Last Admin: 04/17/19 09:35 Dose: 1,000 mcg Diphenhydramine HCl (Benadryl) 25 mg PO BEDTIME [facility] Last Admin: 04/16/19 21:30 Dose: 25 mg Fluoxetine HCl (Prozac) 10 mg PO DAILY [facility] Last Admin: 04/17/19 09:34 Dose: 10 mg Methylprednisolone Sodium Succinate (Solu-Medrol) 62.5 mg IVPUSH DAILY [facility] Last Admin: 04/17/19 09:34 Dose: 62.5 mg Zinc Gluconate 50 Mg (TabOwn Med) 1 tab PO DAILY [facility] Last Admin: 04/17/19 09:35 Dose: 1 tab I-Caps TabletOwn (Med) 1 each PO DAILY [facility] Last Admin: 04/17/19 09:33 Dose: 1 each [facility] Multivitamin + Mineral TabOwn Med 1 each PO DAILY [facility] Last Admin: 04/17/19 09:34 Dose: 1 each Potassium Chloride (Klor-Con 10) 10 meq PO DAILY [facility] Last Admin: 04/17/19 09:33 Dose: 10 meq Sodium Chloride (Saline Flush) 10 ml FLUSH ASDIRECTED PRN PRN Reason: Keep Vein Open Last Admin: 04/17/19 09:44 Dose: 10 ml Discontinued Medications Acetaminophen/Diphenhydramine HCl (Tylenol Pm Extra Strength) tab PO BEDTIME ADRIANE Acetazolamide (Diamox Sequels) 250 mg PO ONETIME ONE Stop: 04/17/19 08:19 Last Admin: 04/17/19 08:53 Dose: Not Given Acetazolamide (Diamox Sequels) 500 mg PO ONETIME ONE Stop: 04/17/19 09:01 Last Admin: 04/17/19 10:04 Dose: 500 mg Cyanocobalamin (Vitamin B12) 1,000 mcg PO DAILY [facility] Furosemide (Lasix) 40 mg IVPUSH Q12H [facility] Last Admin: 04/17/19 04:16 Dose: 40 mg Methylprednisolone Sodium Succinate (Solu-Medrol) 125 mg IVPUSH DAILY [facility] Last Admin: 04/16/19 19:01 Dose: 125 mg Tiotropium [place] (Spiriva Handihaler) 18 mcg INH DAILY [facility] - Exam General: Alert, Oriented, Cooperative, No Acute Distress Lungs: Normal Respiratory Effort, Decreased Breath Sounds, Crackles (fine), Wheezing (right) Cardiovascular: Regular Rate, Regular Rhythm GI/Abdominal Exam: Normal Bowel Sounds, Soft, Non-Tender, No Distention Extremities: Pedal Edema (1+ BLE) Sepsis Event Note - Evaluation Sepsis Screening Result: No Definite Risk - Focused Exam Vital Signs: Vital Signs Temp Pulse Resp BP Pulse Ox Pulse Ox 04/17/19 08:46 97.7 F 87 16 105/64 92 L 04/17/19 06:05 77 04/17/19 05:55 77 04/17/19 04:07 94 L 04/17/19 04:01 97.6 F 77 18 118/74 95 04/17/19 01:00 97.6 F 77 18 112/72 94 L Date Exam was Performed: 04/17/19 Time Exam was Performed: 11:18 - Problem List & Annotations (1) Shortness of breath SNOMED Code(s): 002908515 Code(s): R06.02 - SHORTNESS OF BREATH Status: Acute Current Visit: Yes (2) Peripheral edema SNOMED Code(s): 137945292 Code(s): R60.9 - EDEMA, UNSPECIFIED Status: Acute Current Visit: Yes (3) Grade I diastolic dysfunction SNOMED Code(s): 5949284 Code(s): I51.9 - HEART DISEASE, UNSPECIFIED Status: Acute Current Visit: Yes (4) COPD (chronic obstructive pulmonary disease) SNOMED Code(s): 20051824 Code(s): J44.9 - CHRONIC OBSTRUCTIVE PULMONARY DISEASE, UNSPECIFIED Status : Acute Current Visit: No Qualifiers: COPD type: unspecified COPD Qualified Code(s): J44.9 - Chronic obstructive pulmonary disease, unspecified Annotation/Comment:: I dispensed Prednisone 40 mg qd for a total of 4 additional days. - Problem List Review Problem List Initiated/Reviewed/Updated: Yes - My Orders Last 24 Hours: My Active Orders 04/16/19 17:07 Patient Status [ADT] Routine Cardiac Education [RC] Click to Edit Communication Order [RC] ASDIRECTED Oxygen Therapy [RC] ASDIRECTED Pulse Oximetry [RC] PRN Up With Assistance [RC] ASDIRECTED Vital Signs [RC] Q4H Chest 2V [CR] Urgent Sodium Chloride 0.9% [Saline Flush] 10 ml FLUSH ASDIRECTED PRN Blood Culture x2 Reflex Set [OM.PC] Urgent DVT/VTE Prophylaxis Reflex [OM.PC] Per Unit Routine Peripheral IV Insertion Adult [OM.PC] Routine Resuscitation Status Routine 04/16/19 17:08 Antiembolic Devices [RC] .Routine VTE/DVT Education [RC] Click to Edit 04/16/19 17:22 Albuterol [Proventil Neb Soln] 2.5 mg INH Q4H PRN 04/16/19 17:30 CULTURE BLOOD [BC] Urgent 04/16/19 17:40 CULTURE BLOOD [BC] Urgent 04/16/19 18:43 Albuterol [Ventolin HFA] 0 gm INH Q3H PRN 04/16/19 18:47 Height and Weight [RC] 06 Intake and Output Strict [RC] 06,14,22 04/16/19 19:00 Azithromycin [Zithromax] 250 mg PO DAILY 04/16/19 21:00 Acetaminophen [Tylenol Extra Strength] 500 mg PO BEDTIME Albuterol/Ipratropium [DuoNeb 3.0-0.5 MG/3 ML] 3 ml NEB QIDRT Budesonide [Pulmicort] 0.5 mg INH BIDRT diphenhydrAMINE [Benadryl] 25 mg PO BEDTIME 04/16/19 Dinner Regular Diet [DIET] 04/17/19 09:00 Aspirin [Halfprin] 81 mg PO DAILY Cyanocobalamin (Vitamin B12) [Vitamin B12] 1,000 mcg PO DAILY FLUoxetine [PROzac] 10 mg PO DAILY Non-Formulary Medication [NF Drug] 1 each PO DAILY Non-Formulary Medication [NF Drug] 1 each PO DAILY Potassium Chloride [Klor-Con 10] 10 meq PO DAILY Zinc Gluconate [Zinc] 1 tab PO DAILY methylPREDNISolone Sod Succ [Solu-MEDROL] 62.5 mg IVPUSH DAILY 04/17/19 11:17 Polyethylene Glycol 3350 [MiraLAX] 17 gm PO DAILY PRN 04/17/19 11:18 Docusate Sodium [Colace] 100 mg PO DAILY PRN 04/18/19 06:00 BASIC METABOLIC PANEL,BMP [CHEM] Routine - Plan Plan:: 1. Held lasix, down 5 lbs, CO2 high, acetazolamide 500 mg x 1, oxygen decreased to 1L. ABG showed CO2 retention. Azithromycin 250 mg daily and SoluMedrol 62.5 mg daily, received 125 mg yesterday x 1. 2. ECHO last 2015 showed preserved systolic function with ER 65%, grade 1 diastolic dysfunction, proBNP was 322 normal. 3. Regular diet. 4. Keep O2 between 88-92% to avoid CO2 retention.
[2019-04-17] MEDS: Polyethylene Glycol 3350 Powder 17 GM Packet PO PRN (15:42)
[2019-04-17] MEDS: Carbamide Peroxide 6.5% Otic Soln 15 ML Bottle EARLF SCH (18:22)
[2019-04-17] MEDS ORDERED: PEG EYEBOTH PRN ×2 (20:12→20:34)
[2019-04-17] MEDS ORDERED: PROPYLENE GLYCOL EYEBOTH PRN ×2 (20:12→20:34)
[2019-04-17] MEDS ORDERED: Ketotifen 0.025% Ophth Soln 5 ML Bottle EYELF PRN (20:13)
[2019-04-17] MEDS: KETOTIFEN 0.025% EYELF PRN (20:52)
[2019-04-17] MEDS: DIPHENHYDRAMINE PO SCH (20:52)
[2019-04-17] MEDS: ACETAMINOPHEN PO SCH (20:52)
[2019-04-18] MEDS: Albuterol/Ipratropium 3.0-0.5 MG/3 ML Neb Soln**OWN MED NEB SCH ×4 (06:35→21:20)
[2019-04-18] MEDS: Budesonide 0.5 MG/2 ML Neb Susp**OWN MED INH SCH ×2 (06:35→21:24)
--- NOTE | 2019-04-18 08:55 | PCM.PN ---
- General Info Date of Service: 04/18/19 Admission Dx/Problem (Free Text): She is doing better today, wheezing improved. She was 88% last night on 2L, was 94% this morning so turned down to 1L. Goal 88-92%. She has not had a stool yet , did take some Miralax yesterday. No emesis today. No fevers or chills. - Patient Data Vitals - Most Recent: Last Vital Signs Temp 98.7 F 04/18/19 03:45 Pulse 78 04/18/19 06:35 Resp 18 04/18/19 03:45 BP 109/66 04/18/19 03:45 Pulse Ox 94 L 04/18/19 03:45 Weight - Most Recent: 166 lb 11.2 oz I&O - Last 24 Hours: Intake & Output 04/17/19 04/18/19 04/18/19 22:59 06:59 14:59 Intake Total 880 500 Output Total 700 500 Balance 180 0 Lab Results Last 24 Hours: Laboratory Results - last 24 hr 04/18/19 Range/Units 06:25 Sodium 138 (135-145) mmol/L Potassium 3.6 (3.5-5.3) mmol/L Chloride 98 L (100-110) mmol/L Carbon Dioxide 38 H (21-32) mmol/L BUN 22 H (7-18) mg/dL Creatinine 0.8 (0.55-1.02) mg/dL Est Cr Clr Drug Dosing 55.13 mL/min Estimated GFR (MDRD) > 60 (>60) BUN/Creatinine Ratio 27.5 H (9-20) Glucose 88 (80-116) mg/dL Calcium 8.7 (8.6-10.2) mg/dL [place] Results Last 24 Hours: Microbiology 04/16/19 17:40 Aerobic Blood Culture - Preliminary Blood - Venous - Lab Draw NO GROWTH AFTER 1 DAY Anaerobic Blood Culture - Preliminary NO GROWTH AFTER 1 DAY 04/16/19 17:30 Aerobic Blood Culture - Preliminary Blood - Venous NO GROWTH AFTER 1 DAY Anaerobic Blood Culture - Preliminary NO GROWTH AFTER 1 DAY Med Orders - Current: Current Medications Acetaminophen/Diphenhydramine HCl (Tylenol Pm Extra Strength) 1 tab PO BEDTIME [facility] Last Admin: 04/17/19 20:52 Dose: 1 tab Albuterol (Proventil Neb Soln) 2.5 mg INH Q4H PRN PRN Reason: SOB / WHEEZING Last Admin: 04/16/19 18:09 Dose: 2.5 mg Albuterol (Ventolin Hfa) 0 gm INH Q3H PRN PRN Reason: Wheezing Albuterol/Ipratropium (Duoneb 3.0-0.5 Mg/3 Ml) 3 ml NEB QIDRT [facility] Last Admin: 04/18/19 06:35 Dose: 3 ml Aspirin (Halfprin) 81 mg PO DAILY [facility] Last Admin: 04/17/19 09:32 Dose: 81 mg Azithromycin (Zithromax) 250 mg PO DAILY [facility] Last Admin: 04/17/19 09:35 Dose: 250 mg Budesonide (Pulmicort) 0.5 mg INH BIDRT [facility] Last Admin: 04/18/19 06:35 Dose: 0.5 mg Carbamide Perox/Anhydrous Glycerin (Debrox 6.5% Otic Soln) 0 ml EARLF DAILY [facility] Stop: 04/22/19 16:01 Last Admin: 04/17/19 18:22 Dose: Not Given Cyanocobalamin (Vitamin B12) 1,000 mcg PO DAILY [facility] Last Admin: 04/17/19 09:35 Dose: 1,000 mcg Docusate Sodium (Colace) 100 mg PO DAILY PRN PRN Reason: Constipation Fluoxetine HCl (Prozac) 10 mg PO DAILY [facility] Last Admin: 04/17/19 09:34 Dose: 10 mg Ketotifen Fumarate (Ketotifen 0.025% Ophth Soln) 0 ml EYELF TID PRN PRN Reason: itchy eyes Last Admin: 04/17/19 20:52 Dose: 1 drop Methylprednisolone Sodium Succinate (Solu-Medrol) 62.5 mg IVPUSH DAILY [facility] Last Admin: 04/17/19 09:34 Dose: 62.5 mg Zinc Gluconate 50 Mg (TabOwn Med) 1 tab PO DAILY [facility] Last Admin: 04/17/19 09:35 Dose: 1 tab I-Caps TabletOwn (Med) 1 each PO DAILY [facility] Last Admin: 04/17/19 09:33 Dose: [address] [facility] Multivitamin + Mineral TabOwn Med 1 each PO DAILY [facility] Last Admin: 04/17/19 09:34 Dose: 1 each Polyethylene Glycol (Miralax) 17 gm PO DAILY PRN PRN Reason: Constipation Last Admin: 04/17/19 15:42 Dose: 17 gm Potassium Chloride (Klor-Con 10) 10 meq PO DAILY [facility] Last Admin: 04/17/19 09:33 Dose: 10 meq Propylene Glycol (Systane Lubricant Gel) 0 ml EYEBOTH ASDIRECTED PRN PRN Reason: Dry Eyes Sodium Chloride (Saline Flush) 10 ml FLUSH ASDIRECTED PRN PRN Reason: Keep Vein Open Last Admin: 04/17/19 09:44 Dose: 10 ml Discontinued Medications Acetaminophen (Tylenol Extra Strength) 500 mg PO BEDTIME [facility] Last Admin: 04/16/19 21:30 Dose: 500 mg Acetaminophen/Diphenhydramine HCl (Tylenol Pm Extra Strength) tab PO BEDTIME [facility] Acetazolamide (Diamox Sequels) 250 mg PO ONETIME ONE Stop: 04/17/19 08:19 Last Admin: 04/17/19 08:53 Dose: Not Given Acetazolamide (Diamox Sequels) 500 mg PO ONETIME ONE Stop: 04/17/19 09:01 Last Admin: 04/17/19 10:04 Dose: 500 mg Cyanocobalamin (Vitamin B12) 1,000 mcg PO DAILY [facility] Diphenhydramine HCl (Benadryl) 25 mg PO BEDTIME [facility] Last Admin: 04/16/19 21:30 Dose: 25 mg Furosemide (Lasix) 40 mg IVPUSH Q12H [facility] Last Admin: 04/17/19 04:16 Dose: 40 mg Ketotifen Fumarate (Ketotifen 0.025% Ophth Soln) 1 ml EYELF ASDIRECTED PRN PRN Reason: itchy eyes Methylprednisolone Sodium Succinate (Solu-Medrol) 125 mg IVPUSH DAILY [facility] Last Admin: 04/16/19 19:01 Dose: 125 mg Propylene Glycol (Systane Lubricant Gel) 1 ml EYEBOTH ASDIRECTED PRN PRN Reason: Dry Eyes Tiotropium [place] (Spiriva Handihaler) 18 mcg INH DAILY [facility] - Exam Quality Assessment: Supplemental Oxygen (1L) General: Alert, Oriented, Cooperative, No Acute Distress Lungs: Normal Respiratory Effort, Decreased Breath Sounds, Wheezing (right) Cardiovascular: Regular Rate, Regular Rhythm GI/Abdominal Exam: Normal Bowel Sounds, Soft, Non-Tender, No Distention Extremities: No Pedal Edema Sepsis Event Note - Evaluation Sepsis Screening Result: No Definite Risk - Focused Exam Vital Signs: Vital Signs Temp Pulse Resp BP Pulse Ox Pulse Ox 04/18/19 06:35 78 04/18/19 03:45 98.7 F 75 18 109/66 94 L 04/17/19 21:00 84 94 L 04/17/19 20:55 84 89 L Date Exam was Performed: 04/18/19 Time Exam was Performed: 08:51 - Problem List & Annotations (1) Shortness of breath SNOMED Code(s): 644318369 Code(s): R06.02 - SHORTNESS OF BREATH Status: Acute Current Visit: Yes (2) Peripheral edema SNOMED Code(s): 841658215 Code(s): R60.9 - EDEMA, UNSPECIFIED Status: Acute Current Visit: Yes (3) Grade I diastolic dysfunction SNOMED Code(s): 9722889 Code(s): I51.9 - HEART DISEASE, UNSPECIFIED Status: Acute Current Visit: Yes (4) COPD (chronic obstructive pulmonary disease) SNOMED Code(s): 71795925 Code(s): J44.9 - CHRONIC OBSTRUCTIVE PULMONARY DISEASE, UNSPECIFIED Status : Acute Current Visit: No Qualifiers: COPD type: unspecified COPD Qualified Code(s): J44.9 - Chronic obstructive pulmonary disease, unspecified Annotation/Comment:: I dispensed Prednisone 40 mg qd for a total of 4 additional days. - Problem List Review Problem List Initiated/Reviewed/Updated: Yes - My Orders Last 24 Hours: My Active Orders 04/17/19 09:00 Aspirin [Halfprin] 81 mg PO DAILY Cyanocobalamin (Vitamin B12) [Vitamin B12] 1,000 mcg PO DAILY FLUoxetine [PROzac] 10 mg PO DAILY Non-Formulary Medication [NF Drug] 1 each PO DAILY Non-Formulary Medication [NF Drug] 1 each PO DAILY Potassium Chloride [Klor-Con 10] 10 meq PO DAILY Zinc Gluconate [Zinc] 1 tab PO DAILY methylPREDNISolone Sod Succ [Solu-MEDROL] 62.5 mg IVPUSH DAILY 04/17/19 11:17 Polyethylene Glycol 3350 [MiraLAX] 17 gm PO DAILY PRN 04/17/19 11:18 Docusate Sodium [Colace] 100 mg PO DAILY PRN 04/17/19 16:00 Carbamide Peroxide [Debrox 6.5% Otic Soln] 0 ml EARLF DAILY 04/17/19 21:00 Acetaminophen/Diphenhydramine [Tylenol PM Extra Strength] 1 tab PO BEDTIME - Plan Plan:: 1. CO2 down today. Azithromycin 250 mg daily, SoluMedrol 62.6 IV daily. 2. ECHO last 2015 showed preserved systolic function with ER 65%, grade 1 diastolic dysfunction, proBNP was 322 normal. Will repeat ECHO tomorrow. 3. Regular diet. 4. Keep O2 between 88-92% to avoid CO2 retention.
[2019-04-18] MEDS: methylPREDNISolone Sodium Succinate 125 MG/2 ML SDV IVPUSH SCH (10:07)
[2019-04-18] MEDS: Sodium Chloride 0.9% 10 ML Syringe FLUSH PRN (10:09)
[2019-04-18] MEDS: Aspirin 81 MG Tab.EC**OWN MED PO SCH (10:11)
[2019-04-18] MEDS: MULTIVITAMIN PO SCH (10:12)
[2019-04-18] MEDS: [UNRECOGNIZED DRUG - OTHER] PO SCH (10:12)
[2019-04-18] MEDS: Potassium Chloride 10 MEQ Tab.ER**OWN MED PO SCH (10:12)
[2019-04-18] MEDS: [UNRECOGNIZED DRUG - OTHER] PO SCH (10:12)
[2019-04-18] MEDS: Cyanocobalamin (Vitamin B12) 1,000 MCG Tab**OWN MED PO SCH (10:13)
[2019-04-18] MEDS: ZINC GLUCONATE 50 MG PO SCH (10:13)
[2019-04-18] MEDS: FLUOXETINE 10 MG PO SCH (10:13)
[2019-04-18] MEDS: Azithromycin 250 MG Tab PO SCH (10:14)
[2019-04-18] MEDS: Polyethylene Glycol 3350 Powder 17 GM Packet PO PRN (10:34)
[2019-04-18] MEDS: Carbamide Peroxide 6.5% Otic Soln 15 ML Bottle EARLF SCH (10:51)
--- NOTE | 2019-04-18 11:31 | CR ---
INDICATION: Short of breath. CHEST, 2 VIEWS: PA and lateral views of the chest, 04/16/19, were compared with 03/19/19 and 10/21/18. The heart may be at the upper limits of normal in size. The aorta is tortuous and calcified in the arch and descending portion. Multiple osteoporotic compression fractures are noted in the upper middle and middle thoracic spine. Findings were also compared with 09/25/17, which showed those compression fractures to be present at that time, for the most part. The lower most compression fracture; however, does appear to be new compared with the previous examination of 09/25/17. Accentuated dorsal kyphosis is noted at the upper portion of the thoracic spine harboring compression fractures. Flattened diaphragm leaves, prominent AP diameter and hyperaeration are compatible with COPD. IMPRESSION: 1. COPD. 2. No specific area of pneumonia or effusion identified, but cannot entirely exclude minimal patchy bronchopneumonia at the posterior lung bases due to heavy markings. 3. ASHD. 4. Multiple osteoporotic compression fractures. One is new compared with the previous chest lateral dated 09/25/17 at the mid-thoracic spine. MTDD
[2019-04-18] MEDS: KETOTIFEN 0.025% EYELF PRN (17:24)
[2019-04-18] MEDS: ACETAMINOPHEN PO SCH (21:24)
[2019-04-18] MEDS: DIPHENHYDRAMINE PO SCH (21:24)
[2019-04-19] MEDS: Albuterol/Ipratropium 3.0-0.5 MG/3 ML Neb Soln**OWN MED NEB SCH ×2 (06:22→11:53)
[2019-04-19] MEDS: Budesonide 0.5 MG/2 ML Neb Susp**OWN MED INH SCH (06:22)
[2019-04-19] MEDS: Carbamide Peroxide 6.5% Otic Soln 15 ML Bottle EARLF SCH (09:30)
[2019-04-19] MEDS: Aspirin 81 MG Tab.EC**OWN MED PO SCH (09:31)
[2019-04-19] MEDS: Potassium Chloride 10 MEQ Tab.ER**OWN MED PO SCH (09:31)
[2019-04-19] MEDS: FLUOXETINE 10 MG PO SCH (09:32)
[2019-04-19] MEDS: MULTIVITAMIN PO SCH (09:32)
[2019-04-19] MEDS: [UNRECOGNIZED DRUG - OTHER] PO SCH (09:32)
[2019-04-19] MEDS: Cyanocobalamin (Vitamin B12) 1,000 MCG Tab**OWN MED PO SCH (09:33)
[2019-04-19] MEDS: ZINC GLUCONATE 50 MG PO SCH (09:33)
[2019-04-19] MEDS: [UNRECOGNIZED DRUG - OTHER] PO SCH (09:34)
[2019-04-19] MEDS: Azithromycin 250 MG Tab PO SCH (09:38)
[2019-04-19] MEDS: Polyethylene Glycol 3350 Powder 17 GM Packet PO PRN (09:43)
[2019-04-19] MEDS: methylPREDNISolone Sodium Succinate 125 MG/2 ML SDV IVPUSH SCH (10:05)
[2019-04-19] MEDS: Sodium Chloride 0.9% 10 ML Syringe FLUSH PRN (10:06)
--- NOTE | 2019-04-19 11:04 | PCM.DCSUM1 ---
Discharge Summary - Hospital Course HPI Initial Comments: Nichol presented to [facility] today for 3 day history of shortness of breath. She had been advised to take extra Lasix if her weight went up but hadn't weighed herself. She was up 8 lbs today from her normal weight of 160. Her last ECHO was in 2015, EF was 60-65%, showed grade 1 diastolic dysfunction but preserve systolic function. She denies any fevers, chills, chest pain. Has been having nasal congestion, productive cough of white/yellow-tinged sputum. Denies any nausea, vomiting, diarrhea or abdominal pain. No dysuria, hematuria or frequency. She does have increased edema of her legs, history of varicose veins and venous ulcer on left ankle(has scarring/discoloration from this). Normally wears oxygen at home 3.5 L and pulse oximetry said 90-93% but she wasn' t sure that was right because she was so short of breath. She was 84% on 2L in the clinic, increased to 3L and she came up to 88%, dropped with activity. States she is getting new PFTs done within the next month, sees Pulmonology on 04/20. Diagnosis: Stroke: No - Discharge Data Discharge Date: 04/19/19 Discharge Disposition: Home, Self-Care 01 Condition: Stable - Referral to Home Health Primary Care Physician: Belen Elaine, [facility] [employer] - Discharge Diagnosis/Problem(s) (1) Shortness of breath SNOMED Code(s): 412130028 ICD Code: R06.02 - SHORTNESS OF BREATH Status: Resolved Current Visit: Yes Problem Details: improved (2) Peripheral edema SNOMED Code(s): 965522117 ICD Code: R60.9 - EDEMA, UNSPECIFIED Status: Acute Current Visit: Yes Problem Details: improved, echo today, results pending will have copy sent to Belen Elaine. (3) Grade I diastolic dysfunction SNOMED Code(s): 2905341 ICD Code: I51.9 - HEART DISEASE, UNSPECIFIED Status: Acute Current Visit : Yes Problem Details: ECHO 04/19/2019, results pending (4) COPD (chronic obstructive pulmonary disease) SNOMED Code(s): 22808095 ICD Code: J44.9 - CHRONIC OBSTRUCTIVE PULMONARY DISEASE, UNSPECIFIED Status : Acute Current Visit: No Problem Details: Azithromycin 250 mg daily x 2 days,Prednisone 40 mg qd for a total of 4 additional days. Weaned off oxygen saturation between 88-92%, education given during hospital stay on how to titrate, put oxygen on if below 88%, take off or turn down if above 92%. Use oxygen when walking, if she drops below 88%. Qualifiers: COPD type: unspecified COPD Qualified Code(s): J44.9 - Chronic obstructive pulmonary disease, unspecified - Patient Summary/Data Hospital Course: Patient was admitted for COPD exacerbation, questionable heart failure and weight gain. IV Lasix given, weight came down but has been fluctuating during stay. Her lungs have improved, fluid decreased on her lower extremities. ABG done on admission showed CO2 retention, patient's oxygen was weaned down to between 88-92%, eventually off at time of discharge. She received SoluMedrol 125 mg on admission then decreased to 62.5 mg x 2 doses will go home with prednisone 40 mg daily x 4 days along with Azithromycin 250 mg daily, received 4 doses here, will have 2 more doses to complete course. Will continue her home dose of Lasix. Advised to keep appointment with Pulmonology tomorrow. Patient did also work with social welfare research worker to set up Living Will and power of city attorney with her daughter Cami. ECHO was done day of discharge(last ECHO was done 2015) , results are pending, copies will be sent to her PCP. BNP was normal. Blood cultures were negative to date. WBC was normal. - Patient Instructions Diet: Regular Diet as Tolerated Driving: May Drive Today Showering/Bathing: May Shower Notify Provider of: Fever (shortness of breath or weight gain) Other/Special Instructions: Follow up with Pulmonology tomorrow as previously scheduled. Follow up with Belen Elaine in 1 week to recheck your lungs. - Discharge Plan *PRESCRIPTION DRUG MONITORING PROGRAM REVIEWED*: No *COPY OF PRESCRIPTION DRUG MONITORING REPORT IN PATIENT LULU: No Prescriptions/Med Rec: Azithromycin [Zithromax] 250 mg PO DAILY 2 Days #2 tablet predniSONE [Prednisone] 20 mg PO DAILY 4 Days #4 tablet Home Medications: Home Meds Calcium Carbonate [Calcium] 500 mg PO DAILY 12/05/12 [History] FLUoxetine [PROzac] 10 mg PO DAILY 12/05/12 [History] Lutein/Minerals/Vit A,C & E [Ocuvite] 1 tab PO DAILY 12/05/12 [History] Multivitamins 1 each PO DAILY 12/05/12 [History] Zinc Gluconate [Zinc] 1 tab PO DAILY 12/05/12 [History] Furosemide [Lasix] 40 mg PO DAILY 11/02/16 [History] Aspirin [Halfprin] 81 mg PO DAILY 06/20/17 [History] Cyanocobalamin (Vitamin B12) [Vitamin B12] 1,000 mcg PO DAILY 06/20/17 [History] Budesonide [Pulmicort] 1 ampule INH BID 08/15/17 [History] Ibuprofen 400 mg PO Q4H PRN 08/15/17 [History] Acetaminophen/Diphenhydramine [Tylenol Pm Ex-Strength Caplet] 1 each PO BEDTIME 09/26/17 [History] Albuterol [Ventolin HFA] 2 puff INH Q3H PRN 09/26/17 [History] Potassium Chloride 10 meq PO DAILY 09/26/17 [History] Tiotropium [Spiriva Handihaler] 18 mcg DAILY 09/26/17 [History] Albuterol/Ipratropium [DuoNeb 3.0-0.5 MG/3 ML] 3 ml NEB QID 10/21/18 [History] Azithromycin [Zithromax] 250 mg PO DAILY 2 Days #2 tablet 04/19/19 [Rx] Carbamide Peroxide [Debrox 6.5% Otic Soln] 0 ml EARLF DAILY bottle 04/19/19 [Rx ] Docusate Sodium [Colace] 100 mg PO DAILY PRN cap 04/19/19 [Rx] Polyethylene Glycol 3350 [MiraLAX] 17 gm PO DAILY PRN packet 04/19/19 [Rx] predniSONE [Prednisone] 20 mg PO DAILY 4 Days #4 tablet 04/19/19 [Rx] Oxygen Flow Rate (L/min): 1 (if you drop below 88%) Maintain SPO2% less than: 92 (If you are above 92% turn oxygen down or off as having your oxygen too high can cause you to keep too much carbon dioxide and make you sleepy) Maintain SpO2% greater than: 88 (if you are between 88-92% off oxygen you don't need to put on, if you drop below 88% or walking then would need 1L or adjust to where you are between 88-92%) Patient Handouts: Shortness of Breath, Adult, [id number], Incentive Spirometer, Heart Failure, [id number], Fall Prevention in Hospitals, Adult, Venous Thromboembolism Prevention Referrals: Belen Elaine, [employer] [employer] [Primary Care Provider] - - Discharge Summary/Plan Comment DC Time >30 min.: Yes - General Info Date of Service: 04/19/19 Admission Dx/Problem (Free Text: She was 93% on 0.5L, so oxygen was turned off, patient's saturations were 88-89% , nursing will be doing walking O2 today. Feeling better. Having ECHO this morning to check diastolic dysfunction, last ECHO was 2015. Had Miralax but still no bowel movement. Had Colace ordered as needed but not given yesterday, both given today. - Patient Data Vitals - Most Recent: Last Vital Signs Temp 98.0 F 04/19/19 06:00 Pulse 76 04/19/19 06:20 Resp 18 04/19/19 06:00 BP 103/67 04/19/19 06:00 Pulse Ox 93 L 04/19/19 06:00 Weight - Most Recent: 165 lb 9.6 oz I&O - Last 24 hours: Intake & Output 04/18/19 04/19/19 04/19/19 22:59 06:59 14:59 Intake Total 450 600 240 Output Total 600 300 Balance -150 300 240 RICARDO Results - Last 24 hrs: Microbiology 04/16/19 17:30 Aerobic Blood Culture - Preliminary Blood - Venous NO GROWTH AFTER 2 DAYS Anaerobic Blood Culture - Preliminary NO GROWTH AFTER 2 DAYS 04/16/19 17:40 Aerobic Blood Culture - Preliminary Blood - Venous - Lab Draw NO GROWTH AFTER 2 DAYS Anaerobic Blood Culture - Preliminary NO GROWTH AFTER 2 DAYS Med Orders - Current: Current Medications Acetaminophen/Diphenhydramine HCl (Tylenol Pm Extra Strength) 1 tab PO BEDTIME [facility] Last Admin: 04/18/19 21:24 Dose: 1 tab Albuterol (Proventil Neb Soln) 2.5 mg INH Q4H PRN PRN Reason: SOB / WHEEZING Last Admin: 04/16/19 18:09 Dose: 2.5 mg Albuterol (Ventolin Hfa) 0 gm INH Q3H PRN PRN Reason: Wheezing Albuterol/Ipratropium (Duoneb 3.0-0.5 Mg/3 Ml) 3 ml NEB QIDRT [facility] Last Admin: 04/19/19 06:22 Dose: 3 ml Aspirin (Halfprin) 81 mg PO DAILY [facility] Last Admin: 04/19/19 09:31 Dose: 81 mg Azithromycin (Zithromax) 250 mg PO DAILY [facility] Last Admin: 04/19/19 09:38 Dose: 250 mg Budesonide (Pulmicort) 0.5 mg INH BIDRT [facility] Last Admin: 04/19/19 06:22 Dose: 0.5 mg Carbamide Perox/Anhydrous Glycerin (Debrox 6.5% Otic Soln) 0 ml EARLF DAILY [facility] Stop: 04/22/19 16:01 Last Admin: 04/19/19 09:30 Dose: 4 units Cyanocobalamin (Vitamin B12) 1,000 mcg PO DAILY [facility] Last Admin: 04/19/19 09:33 Dose: 1,000 mcg Docusate Sodium (Colace) 100 mg PO DAILY PRN PRN Reason: Constipation Last Admin: 04/19/19 09:42 Dose: 100 mg Fluoxetine HCl (Prozac) 10 mg PO DAILY [facility] Last Admin: 04/19/19 09:32 Dose: 10 mg Ketotifen Fumarate (Ketotifen 0.025% Ophth Soln) 0 ml EYELF TID PRN PRN Reason: itchy eyes Last Admin: 04/18/19 17:24 Dose: 1 drop Methylprednisolone Sodium Succinate (Solu-Medrol) 62.5 mg IVPUSH DAILY [facility] Last Admin: 04/19/19 10:05 Dose: 62.5 mg Zinc Gluconate 50 Mg (TabOwn Med) 1 tab PO DAILY [facility] Last Admin: 04/19/19 09:33 Dose: 1 tab I-Caps TabletOwn (Med) 1 each PO DAILY [facility] Last Admin: 04/19/19 09:34 Dose: [facility] TabOwn Med 1 each PO DAILY [facility] Last Admin: 04/19/19 09:32 Dose: 1 each Polyethylene Glycol (Miralax) 17 gm PO DAILY PRN PRN Reason: Constipation Last Admin: 04/19/19 09:43 Dose: 17 gm Potassium Chloride (Klor-Con 10) 10 meq PO DAILY [facility] Last Admin: 04/19/19 09:31 Dose: 10 meq Propylene Glycol (Systane Lubricant Gel) 0 ml EYEBOTH ASDIRECTED PRN PRN Reason: Dry Eyes Sodium Chloride (Saline Flush) 10 ml FLUSH ASDIRECTED PRN PRN Reason: Keep Vein Open Last Admin: 04/19/19 10:06 Dose: 10 ml Discontinued Medications Acetaminophen (Tylenol Extra Strength) 500 mg PO BEDTIME [facility] Last Admin: 04/16/19 21:30 Dose: 500 mg Acetaminophen/Diphenhydramine HCl (Tylenol Pm Extra Strength) tab PO BEDTIME [facility] Acetazolamide (Diamox Sequels) 250 mg PO ONETIME ONE Stop: 04/17/19 08:19 Last Admin: 04/17/19 08:53 Dose: Not Given Acetazolamide (Diamox Sequels) 500 mg PO ONETIME ONE Stop: 04/17/19 09:01 Last Admin: 04/17/19 10:04 Dose: 500 mg Cyanocobalamin (Vitamin B12) 1,000 mcg PO DAILY [facility] Diphenhydramine HCl (Benadryl) 25 mg PO BEDTIME [facility] Last Admin: 04/16/19 21:30 Dose: 25 mg Furosemide (Lasix) 40 mg IVPUSH Q12H [facility] Last Admin: 04/17/19 04:16 Dose: 40 mg Ketotifen Fumarate (Ketotifen 0.025% Ophth Soln) 1 ml EYELF ASDIRECTED PRN PRN Reason: itchy eyes Methylprednisolone Sodium Succinate (Solu-Medrol) 125 mg IVPUSH DAILY [facility] Last Admin: 04/16/19 19:01 Dose: 125 mg Propylene Glycol (Systane Lubricant Gel) 1 ml EYEBOTH ASDIRECTED PRN PRN Reason: Dry Eyes Tiotropium [place] (Spiriva Handihaler) 18 mcg INH DAILY [facility] - Exam General: Reports: Alert, Oriented, Cooperative, No Acute Distress Lungs: Reports: Clear to Auscultation, Normal Respiratory Effort, Decreased Breath Sounds (bases). Denies: Crackles, Rales, Wheezing Cardiovascular: Reports: Regular Rate, Regular Rhythm GI/Abdominal Exam: Normal Bowel Sounds, Soft, Non-Tender, No Distention Extremities: Pedal Edema (trace-1+ at ankles, bilateral)
[2019-04-19 12:01] VITALS: BP 103/68; PULSE 82
== END 2019-04-19 14:10 | disposition home or self-care (01) ==
LOC: FB.MS 17:02
PROVIDERS: ADMIT Family Medicine; ATTEND Family Medicine
DX: J44.9 Chronic obstructive pulmonary disease, unspecified (principal); I50.30 Unspecified diastolic (congestive) heart failure; F41.9 Anxiety disorder, unspecified; F32.9 Major depressive disorder, single episode, unspecified; R60.9 Edema, unspecified; Z88.0 Allergy status to penicillin; Z91.040 Latex allergy status; Z79.82 Long term (current) use of aspirin; Z99.81 Dependence on supplemental oxygen; Z79.899 Other long term (current) drug therapy
CPT/HCPCS: 36415; 36600; 71046; 80048; 80053; 82803; 83880; 85025; 87040; 93306; 94640; 94760; 96374; 96375; 96376; A9270; G0378; J1940; J2930; J7620-GY

== ENCOUNTER 2019-04-27 21:51 | Observation (INO) | payer MEDICARE ==
--- NOTE | 2019-04-27 22:14 | EDM.PDOC ---
ED HPI GENERAL MEDICAL PROBLEM - General Chief Complaint: General Stated Complaint: SOB; LIGHTHEADNESS Time Seen by Provider: 04/27/19 22:09 Source of Information: Reports: Patient, Old Records History Limitations: Reports: No Limitations - History of Present Illness INITIAL COMMENTS - FREE TEXT/NARRATIVE: 78 yo F brought in by EMS for SOB. This is a chronic problem,got worse tonight. She was discharged earlier today from [facility],where she was treated for COPD and HFpEF.In fact,she was here last week with the same diagnosis. She now endorses intermittent chest pain ,left sided. She has some light headedness, edema of the legs that has improved ( she lost 8 lbs) in the admission in [place]. - Related Data Allergies Allergy/AdvReac Type Severity Reaction Status Date / Time Penicillins Allergy Severe Hives Verified 04/16/19 18:27 latex Allergy Rash Verified 04/16/19 18:27 Home Meds: Home Meds Calcium Carbonate [Calcium] 500 mg PO DAILY 12/05/12 [History] FLUoxetine [PROzac] 10 mg PO DAILY 12/05/12 [History] Lutein/Minerals/Vit A,C & E [Ocuvite] 1 tab PO DAILY 12/05/12 [History] Multivitamins 1 each PO DAILY 12/05/12 [History] Zinc Gluconate [Zinc] 1 tab PO DAILY 12/05/12 [History] Furosemide [Lasix] 40 mg PO DAILY 11/02/16 [History] Cyanocobalamin (Vitamin B12) [Vitamin B12] 1,000 mcg PO DAILY 06/20/17 [History] Budesonide [Pulmicort] 1 ampule INH BID 08/15/17 [History] Ibuprofen 400 mg PO Q4H PRN 08/15/17 [History] Acetaminophen/Diphenhydramine [Tylenol Pm Ex-Strength Caplet] 1 each PO BEDTIME 09/26/17 [History] Albuterol [Ventolin HFA] 2 puff INH Q3H PRN 09/26/17 [History] Potassium Chloride 10 meq PO DAILY 09/26/17 [History] Tiotropium [Spiriva Handihaler] 18 mcg INH DAILY 09/26/17 [History] Albuterol/Ipratropium [DuoNeb 3.0-0.5 MG/3 ML] 3 ml NEB QID 10/21/18 [History] polyethylene glycoL 3350 [MiraLAX] 17 gm PO DAILY PRN packet 04/19/19 [Rx] Past Medical History HEENT History: Reports: Impaired Vision Other HEENT History: Wears glasses. Cardiovascular History: Reports: None Respiratory History: Reports: COPD (Chronically on oxygen at 3.5 L/m via nasal cannula for the past 10 months.) Other Respiratory History: smoker for 60 years. Gastrointestinal History: Reports: Bowel Obstruction OPERATION MANAGER History: Reports: Other OPERATION MANAGER History: Musculoskeletal History: Reports: Back Pain, Chronic Neurological History: Reports: None Psychiatric History: Reports: Anxiety, Depression Endocrine/Metabolic History: Reports: None Oncologic (Cancer) History: Reports: Uterine - Infectious Disease History Infectious Disease History: Reports: Measles - Past Surgical History HEENT Surgical History: Reports: Cataract Surgery, Other (See Below) Other HEENT Surgeries/Procedures: Cornea transplant. Cardiovascular Surgical History: Reports: Other (See Below) Other Cardiovascular Surgeries/Procedures: Vein stripping procedure 2. GI Surgical History: Reports: Appendectomy, Bariatric Procedure, Cholecystectomy , Colon, Hernia Repair/Other, Other (See Below) Other GI Surgeries/Procedures: Bowel obstruction. Female Surgical History: Reports: Hysterectomy Social & Family History - Family History Family Medical History: Noncontributory - Caffeine Use Caffeine Use: Reports: Coffee, Other Other Caffeine Use: diet pop. - Living Situation & Occupation Occupation: Retired ED ROS GENERAL - Review of Systems Review Of Systems: Comprehensive ROS is negative, except as noted in HPI. ED EXAM, GENERAL - Physical Exam Exam: See Below Exam Limited By: No Limitations General Appearance: Alert, WD/WN, Anxious, Mild Distress Nose: Normal Inspection Respiratory/Chest: Lungs Clear, Accessory Muscle Use Cardiovascular: No JVD GI/Abdominal: No Mass Extremities: Pedal Edema EKG INTERPRETATION EKG Date: 04/27/19 Rhythm: NSR Course - Vital Signs Last Recorded V/S: Last Vital Signs Temp 97.4 F 04/28/19 01:57 Pulse 76 04/28/19 01:57 Resp 16 04/28/19 01:57 BP 120/78 04/28/19 01:57 Pulse Ox 88 L 04/28/19 02:00 - Orders/Labs/Meds Orders: Active Orders 24 hr Category Date Time Status Patient Status [ADT] Routine ADT 04/27/19 22:15 Active EKG Documentation Completion [RC] ASDIRECTED Care 04/27/19 22:17 Active Height and Weight [RC] DAILY Care 04/27/19 22:15 Active Oxygen Therapy [RC] PRN Care 04/27/19 22:15 Active VTE/DVT Education [RC] Per Unit Routine Care 04/27/19 22:15 Active Vital Signs [RC] Q8H Care 04/27/19 22:15 Active OT Evaluation and Treatment [CONS] Routine Cons 04/27/19 22:15 Active PT Evaluation and Treatment [CONS] Routine Cons 04/27/19 22:15 Active Heart Healthy Diet [DIET] Diet 04/27/19 Breakfast Ordered Chest 2V [CR] Stat Exams 04/27/19 22:15 Taken Zolpidem [Ambien] Med 04/27/19 22:15 Active 5 mg PO BEDTIME PRN Resuscitation Status Routine Resus Stat 04/27/19 22:15 Ordered EKG 12 Lead [EK] Stat Ther 04/27/19 22:15 Ordered Medication Orders Sodium Chloride (Saline Flush) 10 ml FLUSH ASDIRECTED PRN PRN Reason: Keep Vein Open Zolpidem Tartrate (Ambien) 5 mg PO BEDTIME PRN PRN Reason: Insomnia Last Admin: 04/27/19 23:22 Dose: 5 mg Meds: Medications Generic Name Dose Route Start Last Admin Trade Name Freq PRN Reason Stop Dose Admin Sodium Chloride 10 ml 04/27/19 22:43 Saline Flush FLUSH ASDIRECTED PRN Keep Vein Open Zolpidem Tartrate 5 mg 04/27/19 22:15 04/27/19 23:22 Ambien PO 5 mg BEDTIME PRN Administration Insomnia Discontinued Medications Generic Name Dose Route Start Last Admin Trade Name Freq PRN Reason Stop Dose Admin Methylprednisolone Sodium Succinate 40 mg 04/27/19 22:15 04/27/19 22:40 Solu-Medrol IVPUSH 04/27/19 22:16 40 mg ONETIME ONE Administration Departure - Departure Time of Disposition: 06:48 Disposition: Refer to Observation Clinical Impression: CHF, Congestive heart failure, COPD (chronic obstructive pulmonary disease), Anxiety - Discharge Information Sepsis Event Note - Focused Exam Vital Signs: Vital Signs Temp Pulse Resp BP Pulse Ox Pulse Ox 04/27/19 22:15 84 16 111/71 95 04/27/19 22:00 98.7 F 93 16 101/60 95 95 Date Exam was Performed: 04/28/19 Time Exam was Performed: 06:47 - Problem List & Annotations (1) COPD exacerbation SNOMED Code(s): 703920596, 903330830 Code(s): J44.1 - CHRONIC OBSTRUCTIVE PULMONARY DISEASE W (ACUTE) EXACERBATION Status: Acute Current Visit: No (2) Anxiety SNOMED Code(s): 64102139 Code(s): F41.9 - ANXIETY DISORDER, UNSPECIFIED Status: Acute Current Visit: No (3) Chest pain SNOMED Code(s): 39921078 Code(s): R07.9 - CHEST PAIN, UNSPECIFIED Status: Acute Current Visit: No Qualifiers: Chest pain type: unspecified Qualified Code(s): R07.9 - Chest pain, unspecified (4) Peripheral edema SNOMED Code(s): 915609854 Code(s): R60.9 - EDEMA, UNSPECIFIED Status: Acute Current Visit: No Annotation/Comment:: improved, echo today, results pending will have copy sent to [facility]. (5) Grade I diastolic dysfunction SNOMED Code(s): 0659337 Code(s): I51.9 - HEART DISEASE, UNSPECIFIED Status: Acute Current Visit: No Annotation/Comment:: ECHO 04/19/2019, Grade 1 Diastolic Failure (6) Shortness of breath SNOMED Code(s): 920613648 Code(s): R06.02 - SHORTNESS OF BREATH Status: Resolved Current Visit: No Annotation/Comment:: improved - Problem List Review Problem List Initiated/Reviewed/Updated: Yes - My Orders Last 24 Hours: My Active Orders 04/27/19 22:15 Patient Status [ADT] Routine Height and Weight [RC] DAILY Oxygen Therapy [RC] PRN VTE/DVT Education [RC] Per Unit Routine Vital Signs [RC] Q8H OT Evaluation and Treatment [CONS] Routine PT Evaluation and Treatment [CONS] Routine Chest 2V [CR] Stat Zolpidem [Ambien] 5 mg PO BEDTIME PRN Resuscitation Status Routine EKG 12 Lead [EK] Stat 04/27/19 22:17 EKG Documentation Completion [RC] ASDIRECTED 04/27/19 Breakfast Heart Healthy Diet [DIET] - Assessment/Plan Last 24 Hours: My Active Orders 04/27/19 22:15 Patient Status [ADT] Routine Height and Weight [RC] DAILY Oxygen Therapy [RC] PRN VTE/DVT Education [RC] Per Unit Routine Vital Signs [RC] Q8H OT Evaluation and Treatment [CONS] Routine PT Evaluation and Treatment [CONS] Routine Chest 2V [CR] Stat Zolpidem [Ambien] 5 mg PO BEDTIME PRN Resuscitation Status Routine EKG 12 Lead [EK] Stat 04/27/19 22:17 EKG Documentation Completion [RC] ASDIRECTED 04/27/19 Breakfast Heart Healthy Diet [DIET] Plan: Admit for observation.CXR=Neg. I will give her one time dose of Solumedrol one time dose.
[2019-04-27] MEDS ORDERED: Zolpidem 5 MG Tab PO PRN (22:15)
[2019-04-27] MEDS ORDERED: methylPREDNISolone Sodium Succinate 40 MG/1 ML SDV IVPUSH ONE (22:15)
[2019-04-27] MEDS ORDERED: Sodium Chloride 0.9% 10 ML Syringe FLUSH PRN (22:43)
[2019-04-28] MEDS ORDERED: Polyethylene Glycol 3350 Powder 17 GM Packet PO PRN (09:54)
[2019-04-28] MEDS ORDERED: PEG EYEBOTH PRN (09:54)
[2019-04-28] MEDS ORDERED: Albuterol 8 GM Inhaler INH PRN (09:54)
[2019-04-28] MEDS ORDERED: PROPYLENE GLYCOL EYEBOTH PRN (09:54)
[2019-04-28] MEDS ORDERED: Albuterol/Ipratropium 3.0-0.5 MG/3 ML Neb Soln *PTOM NEB PRN (09:54)
[2019-04-28] MEDS ORDERED: Azithromycin 500 MG Tab PO ONE (09:56)
--- NOTE | 2019-04-28 10:25 | CR ---
INDICATION: Short of breath. CHEST, TWO VIEWS: PA and lateral views of the chest 04/27/19 were compared with 04/27/19 and 03/19/19 again revealing findings compatible with severe COPD , osteoporosis and stable compression with kyphosis in the upper thoracic spine. Stable endplate compressions noted lower middle thoracic spine with overall compression stable at the upper middle thoracic spine. The heart did not appear enlarged and appeared normal in size. The aorta is tortuous with calcification in the arch. A mild dextroconvex scoliosis of the upper middle thoracic spine is again noted. Pulmonary markings are unchanged from the previous study with no definite active infiltrate or effusion. IMPRESSION: 1. No definite acute process. 2. COPD. 3. Mild pulmonary fibrosis. 4. ASD aorta. 5. Osteoporosis, kyphosis, compression fractures - stable with scoliosis. MTDD
--- NOTE | 2019-04-28 10:57 | PCM.HP.2 ---
H&P History of Present Illness - General Date of Service: 04/28/19 Admit Problem/Dx: Admission Diagnosis/Problem Admission Diagnosis/Problem COPD, Moderate chronic obstructive pulmonary disease Source of Information: Patient, Old Records History Limitations: Reports: No Limitations - History of Present Illness Initial Comments - Free Text/Narative: This is a 78-year-old female patient with over 50 years of smoking comes in with shortness of breath. She was seen here not long ago for COPD and treated and sent home. She went to see her primary provider and sent [facility] the same day for admission. She was diagnosed CHF and COPD treated with Lasix. She thinks she had an echocardiogram but she's not sure. She says she just got short of breath and was wheezing and came in. She said she has some night sweats and a dry cough. She denies fevers but has some chills. She denies chest pain or leg swelling at this time. - Related Data Allergies/Adverse Reactions: Allergies Allergy/AdvReac Type Severity Reaction Status Date / Time Penicillins Allergy Severe Hives Verified 04/16/19 18:27 latex Allergy Rash Verified 04/16/19 18:27 Home Medications: Home Meds FLUoxetine [PROzac] 10 mg PO DAILY 12/05/12 [History] Lutein/Minerals/Vit A,C & E [Ocuvite] 1 tab PO DAILY 12/05/12 [History] Multivitamins 1 each PO DAILY 12/05/12 [History] Zinc Gluconate [Zinc] 1 tab PO DAILY 12/05/12 [History] Furosemide [Lasix] 40 mg PO DAILY 11/02/16 [History] Cyanocobalamin (Vitamin B12) [Vitamin B12] 1,000 mcg PO DAILY 06/20/17 [History] Budesonide [Pulmicort] 0.5 mg INH BID 08/15/17 [History] Acetaminophen/Diphenhydramine [Tylenol Pm Ex-Strength Caplet] 1 each PO BEDTIME 09/26/17 [History] Albuterol [Ventolin HFA] 2 puff INH Q6H PRN 09/26/17 [History] Potassium Chloride 10 meq PO DAILY 09/26/17 [History] Albuterol/Ipratropium [DuoNeb 3.0-0.5 MG/3 ML] 3 ml NEB Q4H PRN 10/21/18 [ History] polyethylene glycoL 3350 [MiraLAX] 17 gm PO DAILY PRN packet 04/19/19 [Rx] Aspirin 81 mg PO DAILY 04/28/19 [History] Calcium Carbonate/Vitamin D3 [Calcium 600 + Vit D 200] 2 tab PO DAILY 04/28/19 [ History] Formoterol Fumarate [Perforomist] 20 mcg IH BID 04/28/19 [History] PEG 400/Propylene Glycol [Systane Lubricant Gel] 1 drop EYEBOTH QID PRN [History] Tiotropium [place] [Spiriva Respimat] 2 puff INH DAILY 04/28/19 [History] Past Medical History HEENT History: Reports: Impaired Vision Other HEENT History: Wears glasses. Cardiovascular History: Reports: Heart Failure Respiratory History: Reports: COPD (Chronically on oxygen at 3.5 L/m via nasal cannula for the past 10 months.) Other Respiratory History: smoker for 60 years. 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 Cardiovascular Surgical History: Reports: Other (See Below) Other Cardiovascular Surgeries/Procedures: Vein stripping procedure 2. GI Surgical History: Reports: Appendectomy, Bariatric Procedure, Cholecystectomy , Colon, Hernia Repair/Other, Other (See Below) Other GI Surgeries/Procedures: Bowel obstruction. Female Surgical History: Reports: Hysterectomy Social & Family History - Family History Family Medical History: Noncontributory - Tobacco Use Smoking Status *Q: Former Smoker Used Tobacco, but Quit: Yes Month/Year Tobacco Last Used: 2018 Second Hand Smoke Exposure: No - Caffeine Use Caffeine Use: Reports: Coffee, Other Other Caffeine Use: diet pop. - Recreational Drug Use Recreational Drug Use: No - Living Situation & Occupation Occupation: Retired H&P Review of Systems - Review of Systems: Review Of Systems: See Below General: Reports: Chills, Night Sweats HEENT: Reports: No Symptoms Pulmonary: Reports: Shortness of Breath, Wheezing, Cough. Denies: Sputum Cardiovascular: Reports: No Symptoms Gastrointestinal: Reports: No Symptoms Genitourinary: Reports: No Symptoms Musculoskeletal: Reports: No Symptoms Skin: Reports: No Symptoms Psychiatric: Reports: No Symptoms Neurological: Reports: No Symptoms Hematologic/Lymphatic: Reports: No Symptoms Exam - Exam Exam: See Below - Vital Signs Vital Signs: Last Vital Signs Temp 97.4 F 04/28/19 01:57 Pulse 76 04/28/19 01:57 Resp 16 04/28/19 01:57 BP 120/78 04/28/19 01:57 Pulse Ox 88 L 04/28/19 02:00 Weight: 156 lb 1 oz - Exam General: Alert, Oriented, Cooperative HEENT: Hearing Intact, Mucosa Moist & [place], Posterior Pharynx Clear, TMs Clear Neck: Supple, Trachea Midline Lungs: Clear to Auscultation, Normal Respiratory Effort, Decreased Breath Sounds. No: Crackles, Rales, Rhonchi, Wheezing Cardiovascular: Regular Rate, Regular Rhythm. No: Systolic Murmur GI/Abdominal Exam: Normal Bowel Sounds, Soft, Non-Tender, No Organomegaly, No Distention, No Abnormal Bruit, No Mass Back Exam: Normal Inspection, Full Range of Motion Extremities: Normal Inspection, Normal Range of Motion, Non-Tender, No Pedal Edema Skin: Warm, Dry, Intact Neuro Extensive - Mental Status: Alert, Oriented x3, Normal Cognition Psychiatric: Alert - Patient Data Lab Results Last 24 hrs: Laboratory Results - last 24 hr 04/27/19 04/27/19 04/27/19 Range/Units 22:40 22:40 22:40 WBC 5.2 (4.5-12.0) X10-3/uL RBC 4.37 (3.23-5.20) x10(6)uL Hgb 13.5 (11.5-15.5) g/dL Hct 41.2 (30.0-51.3) % MCV 94.1 (80-96) fL MCH 30.8 (27.7-33.6) pg MCHC 32.7 (32.2-35.4) g/dL RDW 14.6 (11.5-15.5) % Plt Count 266 (125-369) X10(3)uL MPV 7.8 (7.4-10.4) fL Add Manual Diff Yes Neutrophils % (Manual) 70 (46-82) % Lymphocytes % (Manual) 17 (13-37) % Monocytes % (Manual) 10 (4-12) % Eosinophils % (Manual) 3 (0-5) % Sodium 133 L (135-145) mmol/L Potassium 4.0 (3.5-5.3) mmol/L Chloride 96 L (100-110) mmol/L Carbon Dioxide 34 H (21-32) mmol/L BUN 16 (7-18) mg/dL Creatinine 0.9 (0.55-1.02) mg/dL Est Cr Clr Drug Dosing TNP Estimated GFR (MDRD) > 60 (>60) BUN/Creatinine Ratio 17.8 (9-20) Glucose 110 (80-116) mg/dL Calcium 8.2 L (8.6-10.2) mg/dL Troponin I 0.032 (<0.017-0.056) ng/mL C-Reactive Protein 1.5 H (0.5-0.9) mg/dL NT-Pro-B Natriuret Pep 241 (<=450) pg/mL Result Diagrams: 04/27/19 22:40 04/27/19 22:40 Sepsis Event Note - Evaluation Sepsis Screening Result: No Definite Risk - Focused Exam Vital Signs: Vital Signs Temp Pulse Resp BP Pulse Ox Pulse Ox 04/28/19 02:00 88 L 04/28/19 01:57 97.4 F 76 16 120/78 88 L Date Exam was Performed: 04/28/19 Time Exam was Performed: 10:52 - Problem List (1) Palliative care status SNOMED Code(s): 838027420 ICD Code: Z51.5 - ENCOUNTER FOR PALLIATIVE CARE Status: Acute Current Visit: Yes (2) Anxiety SNOMED Code(s): 60312512 ICD Code: F41.9 - ANXIETY DISORDER, UNSPECIFIED Status: Acute Current Visit: Yes (3) CHF, Congestive heart failure SNOMED Code(s): 89983379 ICD Code: I50.9 - HEART FAILURE, UNSPECIFIED Status: Acute Current Visit : Yes (4) COPD (chronic obstructive pulmonary disease) SNOMED Code(s): 12063278 ICD Code: J44.9 - CHRONIC OBSTRUCTIVE PULMONARY DISEASE, UNSPECIFIED Status : Acute Current Visit: Yes Problem Details: Azithromycin 250 mg daily x 2 days,Prednisone 40 mg qd for a total of 4 additional days. Weaned off oxygen saturation between 88-92%, education given during hospital stay on how to titrate, put oxygen on if below 88%, take off or turn down if above 92%. Use oxygen when walking, if she drops below 88%. Qualifiers: COPD type: unspecified COPD Qualified Code(s): J44.9 - Chronic obstructive pulmonary disease, unspecified Problem List Initiated/Reviewed/Updated: Yes Orders Last 24hrs: Active Orders 24 hr Category Date Time Status Patient Status [ADT] Routine ADT 04/27/19 22:15 Active EKG Documentation Completion [RC] ASDIRECTED Care 04/27/19 22:17 Active Height and Weight [RC] DAILY Care 04/27/19 22:15 Active Oxygen Therapy [RC] PRN Care 04/27/19 22:15 Active VTE/DVT Education [RC] Per Unit Routine Care 04/27/19 22:15 Active Vital Signs [RC] Q8H Care 04/27/19 22:15 Active OT Evaluation and Treatment [CONS] Routine Cons 04/27/19 22:15 Active PT Evaluation and Treatment [CONS] Routine Cons 04/27/19 22:15 Active Acetaminophen/Diphenhydramine [Tylenol PM Extra Med 04/28/19 21:00 Active Strength] 1 tab PO BEDTIME Albuterol [Ventolin HFA] Med 04/28/19 09:54 Active 0 gm INH Q6H PRN Albuterol/Ipratropium [DuoNeb 3.0-0.5 MG/3 ML] Med 04/28/19 09:54 Active 3 ml NEB Q4H PRN Aspirin Med 04/29/19 09:00 Ordered 81 mg PO DAILY Azithromycin [Zithromax] Med 04/29/19 09:00 Active 250 mg PO DAILY Budesonide [Pulmicort] Med 04/28/19 21:00 Ordered 0.5 mg INH BID Calcium Carbonate/Vitamin D3 [Calcium 600 + Vit D 200] Med 04/29/19 09:00 Ordered 2 tab PO DAILY Cyanocobalamin (Vitamin B12) [Vitamin B12] Med 04/29/19 09:00 Ordered 1,000 mcg PO DAILY FLUoxetine [PROzac] Med 04/29/19 09:00 Ordered 10 mg PO DAILY Formoterol Fumarate [Perforomist] Med 04/28/19 21:00 Ordered 20 mcg IH BID Furosemide [Lasix] Med 04/29/19 09:00 Ordered 40 mg PO DAILY Lutein/Minerals/Vit A,C & E [Ocuvite] Med 04/29/19 09:00 Ordered 1 tab PO DAILY Multivitamins [Multivitamins] Med 04/29/19 09:00 Ordered 1 each PO DAILY PEG 400/Propylene Glycol [Systane Lubricant Gel] Med 04/28/19 09:54 Active 0 ml EYEBOTH QID PRN Potassium Chloride [Potassium Chloride] Med 04/29/19 09:00 Ordered 10 meq PO DAILY Sodium Chloride 0.9% [Saline Flush] Med 04/27/19 22:43 Active 10 ml FLUSH ASDIRECTED PRN Tiotropium [place] [Spiriva Respimat] Med 04/29/19 09:00 Ordered 2 puff INH DAILY Zinc Gluconate [Zinc] Med 04/29/19 09:00 Ordered 1 tab PO DAILY Zolpidem [Ambien] Med 04/27/19 22:15 Active 5 mg PO BEDTIME PRN polyethylene glycoL 3350 [MiraLAX] Med 04/28/19 09:54 Active 17 gm PO DAILY PRN predniSONE Med 04/29/19 08:00 Active 40 mg PO WITHBREAKFAST Saline Lock Insert [OM.PC] Routine Oth 04/27/19 22:00 Ordered Resuscitation Status Routine Resus Stat 04/27/19 22:15 Ordered EKG 12 Lead [EK] Stat Ther 04/27/19 22:15 Ordered Medication Orders Acetaminophen/Diphenhydramine HCl (Tylenol Pm Extra Strength) 1 tab PO BEDTIME ADRIANE Albuterol (Ventolin Hfa) 0 gm INH Q6H PRN PRN Reason: Wheezing Albuterol/Ipratropium (Duoneb 3.0-0.5 Mg/3 Ml) 3 ml NEB Q4H PRN PRN Reason: Shortness of Breath Aspirin (Aspirin) 81 mg PO DAILY ADRIANE Azithromycin (Zithromax) 250 mg PO DAILY ADRIANE Stop: 05/02/19 09:01 Budesonide (Pulmicort) 0.5 mg INH BID ADRIANE Cyanocobalamin (Vitamin B12) 1,000 mcg PO DAILY ADRIANE Furosemide (Lasix) 40 mg PO DAILY ADRIANE Non-Formulary Medication (Calcium Carbonate/Vitamin D3 [Calcium 600 + Vit D 200] ) 2 tab PO DAILY ADRIANE Non-Formulary Medication (Fluoxetine [Prozac]) 10 mg PO DAILY ADRIANE Non-Formulary Medication (Formoterol Fumarate [Perforomist]) 20 mcg IH BID ADRIANE Non-Formulary Medication (Lutein/Minerals/Vit A,C & E [Ocuvite]) 1 tab PO DAILY ADRIANE Non-Formulary Medication (Multivitamins [Multivitamins]) 1 each PO DAILY ADRIANE Non-Formulary Medication (Potassium Chloride [Potassium Chloride]) 10 meq PO DAILY ADRIANE Non-Formulary Medication (Tiotropium [place] [Spiriva Respimat]) 2 puff INH DAILY ADRIANE Non-Formulary Medication (Zinc Gluconate [Zinc]) 1 tab PO DAILY ADRIANE Polyethylene Glycol (Miralax) 17 gm PO DAILY PRN PRN Reason: Constipation Prednisone (Prednisone) 40 mg PO WITHBREAKFAST ADRIANE Propylene Glycol (Systane Lubricant Gel) 0 ml EYEBOTH QID PRN PRN Reason: Dry Eyes Sodium Chloride (Saline Flush) 10 ml FLUSH ASDIRECTED PRN PRN Reason: Keep Vein Open Zolpidem Tartrate (Ambien) 5 mg PO BEDTIME PRN PRN Reason: Insomnia Last Admin: 04/27/19 23:22 Dose: 5 mg Assessment/Plan Comment:: 1. Admit for observation. 2. Keep oxygen saturations around 90% due to CO2 retaining. 3. Z-Nikita 4. She was given Solu-Medrol in the ER and I will start prednisone 40 mg a day by mouth. 5. Lovenox for VTE prophylaxis 6. Continue your same medications. 7. Up with assist 8. Regular diet.
[2019-04-28] MEDS ORDERED: Enoxaparin 40 MG/0.4 ML Syringe SUBCUT SCH (11:00)
[2019-04-28] MEDS: Aspirin 81 MG Tab.EC *PTOM PO SCH (11:43)
[2019-04-28] MEDS: Cyanocobalamin (Vitamin B12) 1,000 MCG Tab *PTOM PO SCH (11:43)
[2019-04-28] MEDS: Furosemide 40 MG Tab *PTOM PO SCH (11:44)
[2019-04-28] MEDS: [UNRECOGNIZED DRUG - OTHER] PO SCH (11:44)
[2019-04-28] MEDS: predniSONE 20 MG Tab PO SCH (11:45)
[2019-04-28] MEDS: SENTRY SENIOR PO SCH (11:45)
[2019-04-28] MEDS: Budesonide 0.5 MG/2 ML Neb Susp *PTOM INH SCH ×2 (11:46→20:21)
[2019-04-28] MEDS: FLUoxetine 10 MG Cap *PTOM PO SCH (11:46)
[2019-04-28] MEDS: Potassium Chloride 10 MEQ Tab.ER *PTOM PO SCH (11:47)
[2019-04-28] MEDS: ZINC 50 MG PO SCH (11:47)
[2019-04-28] MEDS ORDERED: Acetaminophen/Diphenhydramine 500-25 MG Tab PO SCH (21:00)
[2019-04-28] MEDS ORDERED: FORMOTEROL FUMARATE 20 MCG IH SCH (21:00)
[2019-04-29] MEDS ORDERED: Azithromycin 250 MG Tab PO SCH (09:00)
[2019-04-29] MEDS: predniSONE 20 MG Tab PO SCH (09:01)
[2019-04-29] MEDS: Aspirin 81 MG Tab.EC *PTOM PO SCH (09:03)
[2019-04-29] MEDS: Potassium Chloride 10 MEQ Tab.ER *PTOM PO SCH (09:03)
[2019-04-29] MEDS: Furosemide 40 MG Tab *PTOM PO SCH (09:04)
[2019-04-29] MEDS: SENTRY SENIOR PO SCH (09:04)
[2019-04-29] MEDS: [UNRECOGNIZED DRUG - OTHER] PO SCH (09:04)
[2019-04-29] MEDS: Cyanocobalamin (Vitamin B12) 1,000 MCG Tab *PTOM PO SCH (09:05)
[2019-04-29] MEDS: FLUoxetine 10 MG Cap *PTOM PO SCH (09:05)
[2019-04-29] MEDS: ZINC 50 MG PO SCH (09:07)
[2019-04-29] MEDS: Budesonide 0.5 MG/2 ML Neb Susp *PTOM INH SCH (09:09)
[2019-04-29 13:57] VITALS: BP 125/66; PULSE 62
--- NOTE | 2019-04-29 18:34 | PN ---
DATE SEEN: 04/29/2019 HISTORY: Mrs. Miller is a 78-year-old woman from [place], [place], with a history of severe COPD. She was hospitalized at [place] approximately 2 weeks ago with COPD. She was discharged to home and then the next day was sent up to [facility] where she was hospitalized for 3-4 days for COPD and congestive heart failure. She was diuresed of approximately 4-5 pounds, was sent home, and was so weak that she could not get around, so she came into the emergency room, and she was admitted to observation care. The patient now has been the eating better. She has been up, walking. She is still lightheaded when she sits up. She is still short of breath, but her saturation is maintained with oxygen. She is not feeling back to her baseline, but is improved from admission. She is on a Z-Nikita for potential lung infection, and she received Solu-Medrol in the ER and is on oral prednisone. PHYSICAL EXAMINATION: GENERAL: She is alert, comfortable, an excellent historian. She is in good spirits. VITAL SIGNS: Blood pressure 112/70, pulse approximately 70 and regular, respirations 18, O2 saturation 93% on 0.5 L nasal cannula oxygen, and weight 154 pounds, this is down from 162 pounds a couple of weeks ago. HEENT: Shows her mouth to be dry. LUNGS: Have very distant breath sounds. No focal consolidation is heard. HEART: Regular. No murmur or gallop heard. ABDOMEN: Normal bowel sounds. Soft and nontender. EXTREMITIES: Show no edema at the ankles. LABORATORY DATA: Hemoglobin 13.5. Sodium 133, BUN 16, and creatinine 0.9. ASSESSMENT: 1. Generalized weakness secondary to fairly vigorous diuresis from congestive heart failure. 2. Chronic severe chronic obstructive pulmonary disease, oxygen dependent. 3. Depression. 4. Palliative care. PLAN: We will increase her activity today and if strong enough, we will discharge to home later today on outpatient prednisone and oxygen. She is to follow up in the clinic with her doctor next week. /[id number] EH/FLORESITA
--- NOTE | 2019-04-30 02:58 | DISCH ---
DISCHARGE DATE: 04/29/2019 PRIMARY DIAGNOSES: 1. Weakness secondary to transient dehydration. 2. Severe chronic obstructive pulmonary disease, oxygen dependent. 3. Recent congestive heart failure. FINAL DIAGNOSES: 1. Weakness secondary to transient dehydration. 2. Severe chronic obstructive pulmonary disease, oxygen dependent. 3. Recent congestive heart failure. OPERATIONS: None. COMPLICATIONS: None. SUMMARY: Ms. Miller is a 78-year-old woman with severe COPD, who was hospitalized at [facility] approximately 2 weeks ago. She was discharged to home and the next day went up to [facility] where she was diagnosed with congestive heart failure. She was diuresed of 5 to 6 pounds and sent home. After getting home, she found she was so weak she could not get up and move without significant dizziness, weakness, shortness of breath, etc., so she came into the emergency room where she was admitted to [facility] again. On admission, her electrolytes were normal. Creatinine 0.9. ProBNP 241 and CRP 1.5. She was treated with IV steroid in the ER, then oral prednisone at 40 mg per day. She was placed on azithromycin. Chest x-ray came back with signs of COPD. No obvious pneumonia but pulmonary fibrosis is present along with changes of COPD. By the next morning after admission, she was eating better, feeling better. She was tolerating her nasal oxygen and was able to get up walking in the halls with her oxygen on and one light assist. With ambulation, her O2 dropped to 83% and came back up to 90 range at rest. She is discharged to home in stable condition. She requests something further for anxiety and stating she had been on Xanax several years ago; however, I recommend that we change her from fluoxetine to citalopram instead. MEDICATIONS ON DISCHARGE: 1. Prednisone 20 mg daily x5 days. 2. Citalopram 20 mg daily. 3. Zinc tablets one daily. 4. Spiriva 2 puffs once daily. 5. Potassium 10 mEq daily. 6. MiraLAX 1 cap full daily. 7. Artificial Tears p.r.n. 8. Multiple vitamin 1 daily. 9. Ocuvite one daily. 10.Furosemide 40 mg daily. 11.Perforomist 20 mcg inhaled b.i.d. 12.Vitamin B12 1000 mcg p.o. daily. 13.Calcium carbonate with D one daily. 14.Pulmicort nebs b.i.d. 15.Aspirin 81 mg daily. 16.Albuterol MDI p.r.n. 17.DuoNebs every 4 hours. 18.Tylenol p.r.n. one at bedtime. She is asked to see Belen Elaine NP in her office within 2 weeks and follow up here should there be problems or questions. /[id number] E[facility]/FLORESITA
[2019-04-30] MEDS ORDERED: predniSONE 20 MG Tab PO SCH (08:00)
== END 2019-04-29 14:45 | disposition home or self-care (01) ==
LOC: FB.ED 21:51 → FB.MS 22:25
PROVIDERS: ADMIT Family Medicine; ATTEND Family Medicine
DX: J44.1 Chronic obstructive pulmonary disease with (acute) exacerbation (principal); I50.9 Heart failure, unspecified; E86.0 Dehydration; F41.9 Anxiety disorder, unspecified; F32.9 Major depressive disorder, single episode, unspecified; Z99.81 Dependence on supplemental oxygen; Z88.0 Allergy status to penicillin; Z91.040 Latex allergy status; Z79.899 Other long term (current) drug therapy; Z87.891 Personal history of nicotine dependence; Z51.5 Encounter for palliative care
CPT/HCPCS: 36415; 71046; 80048; 83880; 84484; 85025; 86140; 93005; 94640; 94760; 96372; 96374; 97161-GP; 99284; 99285-25; A9270-GY; G0378; J1650; J2920

== ENCOUNTER 2019-06-27 15:00 | Emergency (ER) | payer MEDICARE, SELFPAY ==
[2019-06-27] MEDS ORDERED: Sodium Chloride 0.9% 10 ML Syringe FLUSH PRN (15:30)
[2019-06-27] MEDS ORDERED: Albuterol/Ipratropium 3.0-0.5 MG/3 ML Neb Soln NEB ONE (15:30)
[2019-06-27] MEDS ORDERED: methylPREDNISolone Sodium Succinate 125 MG/2 ML SDV IVPUSH ONE (15:36)
--- NOTE | 2019-06-27 15:37 | EDM.PDOC ---
ED HPI GENERAL MEDICAL PROBLEM - General Chief Complaint: Respiratory Problem Stated Complaint: SOB,WEAKNESS Time Seen by Provider: 06/27/19 15:32 Source of Information: Reports: Patient History Limitations: Reports: No Limitations - History of Present Illness INITIAL COMMENTS - FREE TEXT/NARRATIVE: Patient has a h/o O2 dep COPD, presents with productive cough of yellow sputum and SOB x 3 days. Temp was 99.4 yesterday, has had chills also. Complains of generalized weakness. Denies COVID-19 exposure or recent travel. Duration: Day(s): (3) - Related Data Allergies Allergy/AdvReac Type Severity Reaction Status Date / Time Penicillins Allergy Severe Hives Verified 06/27/19 15:14 latex Allergy Rash Verified 06/27/19 15:14 Home Meds: Home Meds Lutein/Minerals/Vit A,C & E [Ocuvite] 1 tab PO DAILY 12/05/12 [History] Multivitamins 1 each PO DAILY 12/05/12 [History] Zinc Gluconate [Zinc] 1 tab PO DAILY 12/05/12 [History] Furosemide [Lasix] 40 mg PO DAILY 11/02/16 [History] Cyanocobalamin (Vitamin B12) [Vitamin B12] 1,000 mcg PO DAILY 06/20/17 [History] Budesonide [Pulmicort] 0.5 mg INH BID 08/15/17 [History] Acetaminophen/Diphenhydramine [Tylenol Pm Ex-Strength Caplet] 1 each PO BEDTIME 09/26/17 [History] Albuterol [Ventolin HFA] 2 puff INH Q6H PRN 09/26/17 [History] Potassium Chloride 10 meq PO DAILY 09/26/17 [History] Albuterol/Ipratropium [DuoNeb 3.0-0.5 MG/3 ML] 3 ml NEB Q4H PRN 10/21/18 [ History] polyethylene glycoL 3350 [MiraLAX] 17 gm PO DAILY PRN packet 04/19/19 [Rx] Aspirin 81 mg PO DAILY 04/28/19 [History] Calcium Carbonate/Vitamin D3 [Calcium 600 + Vit D 200] 2 tab PO DAILY 04/28/19 [ History] Formoterol Fumarate [Perforomist] 20 mcg IH BID 04/28/19 [History] PEG 400/Propylene Glycol [Systane Lubricant Gel] 1 drop EYEBOTH QID PRN [History] Tiotropium [place] [Spiriva Respimat] 2 puff INH DAILY 04/28/19 [History] Citalopram [Citalopram HBr] 20 mg PO DAILY #30 tab 04/29/19 [Rx] predniSONE 20 mg PO WITHBREAKFAST #5 tablet 04/29/19 [Rx] Doxycycline Monohydrate 100 mg PO BID #14 capsule 06/27/19 [Rx] predniSONE 60 mg PO DAILY 5 Days #15 tab 06/27/19 [Rx] Past Medical History HEENT History: Reports: Impaired Vision Other HEENT History: Wears glasses. Cardiovascular History: Reports: Heart Failure Respiratory History: Reports: COPD (Chronically on oxygen at 3.5 L/m via nasal cannula for the past 10 months.) Other Respiratory History: smoker for 60 years. Gastrointestinal History: Reports: Bowel Obstruction [employer] History: Reports: Other [employer] History: Musculoskeletal History: Reports: Back Pain, Chronic Neurological History: Reports: None Psychiatric History: Reports: Anxiety, Depression Endocrine/Metabolic History: Reports: None Oncologic (Cancer) History: Reports: Uterine - Infectious Disease History Infectious Disease History: Reports: Measles - Past Surgical History HEENT Surgical History: Reports: Cataract Surgery, Other (See Below) Other HEENT Surgeries/Procedures: Cornea transplant. Cardiovascular Surgical History: Reports: Other (See Below) Other Cardiovascular Surgeries/Procedures: Vein stripping procedure 2. GI Surgical History: Reports: Appendectomy, Bariatric Procedure, Cholecystectomy , Colon, Hernia Repair/Other, Other (See Below) Other GI Surgeries/Procedures: Bowel obstruction. Female Surgical History: Reports: Hysterectomy Social & Family History - Family History Family Medical History: Noncontributory - Tobacco Use Tobacco Use Within Last Twelve Months: No - Caffeine Use Caffeine Use: Reports: Coffee, Other Other Caffeine Use: diet pop. - Living Situation & Occupation Occupation: Retired ED ROS GENERAL - Review of Systems Review Of Systems: Comprehensive ROS is negative, except as noted in HPI. ED EXAM, GENERAL - Physical Exam Exam: See Below Exam Limited By: No Limitations General Appearance: Alert, WD/WN, No Apparent Distress Nose: Normal Inspection Throat/Mouth: No Airway Compromise Head: Atraumatic, Normocephalic Neck: Full Range of Motion Respiratory/Chest: No Respiratory Distress, Decreased Breath Sounds, Rhonchi Cardiovascular: Regular Rate, Rhythm, No Murmur Extremities: Pedal Edema Neurological: Alert, Normal Cognition Psychiatric: Normal Affect, Normal Mood Skin Exam: Warm, Dry, Intact EKG INTERPRETATION EKG Date: 06/27/19 Time: 16:30 Rhythm: NSR Rate (Beats/Min): 99 [place]: Normal P-Wave: Present QRS: Normal ST-T: Normal Comparison: No Change (04/27/19) Course - Vital Signs Last Recorded V/S: Last Vital Signs Temp 36.4 C 06/27/19 15:10 Pulse 87 06/27/19 15:10 Resp 20 06/27/19 15:10 BP 117/73 06/27/19 15:10 Pulse Ox 89 L 06/27/19 15:10 - Orders/Labs/Meds Orders: Active Orders 24 hr Category Date Time Status EKG Documentation Completion [RC] ASDIRECTED Care 06/27/19 15:31 Active RT Aerosol Therapy [RC] ASDIRECTED Care 06/27/19 15:30 Active CULTURE BLOOD [BC] Urgent Lab 06/27/19 15:55 Received CULTURE BLOOD [BC] Urgent Lab 06/27/19 16:00 Received CULTURE SPUTUM + SMEAR [RM] Stat Lab 06/27/19 16:47 Received Sodium Chloride 0.9% [Saline Flush] Med 06/27/19 15:30 Active 10 ml FLUSH ASDIRECTED PRN Blood Culture x2 Reflex Set [OM.PC] Urgent Oth 06/27/19 15:30 Ordered Isolation [COMM] Routine Oth 06/27/19 15:30 Ordered Saline Lock Insert [OM.PC] Routine Oth 06/27/19 15:30 Ordered EKG 12 Lead [EK] Stat Ther 06/27/19 15:30 Ordered Medication Orders Sodium Chloride (Saline Flush) 10 ml FLUSH ASDIRECTED PRN PRN Reason: Keep Vein Open Last Admin: 06/27/19 16:40 Dose: 10 ml Labs: Laboratory Tests 06/27/19 06/27/19 06/27/19 Range/Units 15:18 15:55 15:55 WBC 9.9 (4.5-12.0) X10-3/uL RBC 4.45 (3.23-5.20) x10(6)uL Hgb 13.6 (11.5-15.5) g/dL Hct 41.9 (30.0-51.3) % MCV 94.1 (80-96) fL MCH 30.6 (27.7-33.6) pg MCHC 32.5 (32.2-35.4) g/dL RDW 14.7 (11.5-15.5) % Plt Count 307 (125-369) X10(3)uL MPV 8.5 (7.4-10.4) fL Neut % (Auto) 74.5 (46-82) % Lymph % (Auto) 8.2 L (13-37) % [place] % (Auto) 7.6 (4-12) % Eos % (Auto) 5 (1.0-5.0) % Baso % (Auto) 5 H (0-2) % Neut # (Auto) 7.4 (1.6-8.3) # Lymph # (Auto) 0.8 (0.6-5.0) # [place] # (Auto) 0.8 (0.0-1.3) # Eos # (Auto) 0.5 (0.0-0.8) # Baso # (Auto) 0.4 H (0.0-0.2) # POC VBG pH 7.34 (7.31-7.41) POC VBG pCO2 70.3 H (41-51) mmHG POC VBG HCO3 37.5 H (23-28) mmol/L POC VBG Total CO2 40 H (24-29) mmol/L POC VBG Base Excess 12 H (-2-3) mmol/L Sodium 138 (135-145) mmol/L Potassium 4.5 (3.5-5.3) mmol/L Chloride 99 L (100-110) mmol/L Carbon Dioxide 36 H (21-32) mmol/L BUN 20 H (7-18) mg/dL Creatinine 0.8 (0.55-1.02) mg/dL Est Cr Clr Drug Dosing TNP Estimated GFR (MDRD) > 60 (>60) BUN/Creatinine Ratio 25.0 H (9-20) Glucose 92 (80-116) mg/dL Lactic Acid (0.4-2.0) mmol/L Calcium 8.3 L (8.6-10.2) mg/dL Total Bilirubin 0.6 (0.1-1.3) mg/dL AST 25 D (5-25) IU/L ALT 22 D (12-36) U/L Alkaline Phosphatase 109 (56-112) IU/L Troponin I (4.0-60.3) pg/mL NT-Pro-B Natriuret Pep (<=450) pg/mL Total Protein 6.4 (6.0-8.0) g/dL Albumin 3.2 (3.2-4.6) g/dL Globulin 3.2 g/dL Albumin/Globulin Ratio 1.0 06/27/19 06/27/19 Range/Units 15:55 16:00 WBC (4.5-12.0) X10-3/uL RBC (3.23-5.20) x10(6)uL Hgb (11.5-15.5) g/dL Hct (30.0-51.3) % MCV (80-96) fL MCH (27.7-33.6) pg MCHC (32.2-35.4) g/dL RDW (11.5-15.5) % Plt Count (125-369) X10(3)uL MPV (7.4-10.4) fL Neut % (Auto) (46-82) % Lymph % (Auto) (13-37) % [place] % (Auto) (4-12) % Eos % (Auto) (1.0-5.0) % Baso % (Auto) (0-2) % Neut # (Auto) (1.6-8.3) # Lymph # (Auto) (0.6-5.0) # [place] # (Auto) (0.0-1.3) # Eos # (Auto) (0.0-0.8) # Baso # (Auto) (0.0-0.2) # POC VBG pH (7.31-7.41) POC VBG pCO2 (41-51) mmHG POC VBG HCO3 (23-28) mmol/L POC VBG Total CO2 (24-29) mmol/L POC VBG Base Excess (-2-3) mmol/L Sodium (135-145) mmol/L Potassium (3.5-5.3) mmol/L Chloride (100-110) mmol/L Carbon Dioxide (21-32) mmol/L BUN (7-18) mg/dL Creatinine (0.55-1.02) mg/dL Est Cr Clr Drug Dosing Estimated GFR (MDRD) (>60) BUN/Creatinine Ratio (9-20) Glucose (80-116) mg/dL Lactic Acid 0.7 (0.4-2.0) mmol/L Calcium (8.6-10.2) mg/dL Total Bilirubin (0.1-1.3) mg/dL AST (5-25) IU/L ALT (12-36) U/L Alkaline Phosphatase (56-112) IU/L Troponin I 14.0 (4.0-60.3) pg/mL NT-Pro-B Natriuret Pep 318 (<=450) pg/mL Total Protein (6.0-8.0) g/dL Albumin (3.2-4.6) g/dL Globulin g/dL Albumin/Globulin Ratio Meds: Medications Generic Name Dose Route Start Last Admin Trade Name Freq PRN Reason Stop Dose Admin Sodium Chloride 10 ml 06/27/19 15:30 06/27/19 16:40 Saline Flush FLUSH 10 ml ASDIRECTED PRN Administration Keep Vein Open Discontinued Medications Generic Name Dose Route Start Last Admin Trade Name Freq PRN Reason Stop Dose Admin Albuterol/Ipratropium 3 ml 06/27/19 15:30 06/27/19 16:02 Duoneb 3.0-0.5 Mg/3 Ml NEB 06/27/19 15:31 3 ml ONETIME ONE Administration Methylprednisolone Sodium Succinate 125 mg 06/27/19 15:36 06/27/19 16:40 Solu-Medrol IVPUSH 06/27/19 15:37 125 mg ONETIME ONE Administration - Radiology Interpretation Free Text/Narrative:: CXR: No acute process. (ED provider interpretation) - Re-Assessments/Exams Free Text/Narrative Re-Assessment/Exam: 06/27/19 17:23 Symptoms improved after Duoneb and Solumedrol 125mg IV. Sa02 95% 2L O2 NC. Departure - Departure Time of Disposition: 17:24 Disposition: Home, Self-Care 01 Condition: Good Clinical Impression: COPD exacerbation - Discharge Information *PRESCRIPTION DRUG MONITORING PROGRAM REVIEWED*: No *COPY OF PRESCRIPTION DRUG MONITORING REPORT IN PATIENT LULU: Not Applicable Prescriptions: Doxycycline Monohydrate 100 mg PO BID #14 capsule predniSONE 60 mg PO DAILY 5 Days #15 tab Instructions: Chronic Obstructive Pulmonary Disease, [id number] Referrals: Belen Elaine NP [Primary Care Provider] - 2 Days Forms: ED Department Discharge Additional Instructions: Fill the prescription for Doxycycline and Prednisone at [facility] and take as directed. Follow up with your primary physician in 2-3 days. Return to the ER if symptoms worsen. Sepsis Event Note - Focused Exam Vital Signs: Vital Signs Temp Pulse Resp BP Pulse Ox 06/27/19 15:10 36.4 C 87 20 117/73 89 L Date Exam was Performed: 06/27/19 Time Exam was Performed: 17:21 - My Orders Last 24 Hours: My Active Orders 06/27/19 15:30 RT Aerosol Therapy [RC] ASDIRECTED Sodium Chloride 0.9% [Saline Flush] 10 ml FLUSH ASDIRECTED PRN Blood Culture x2 Reflex Set [OM.PC] Urgent Isolation [COMM] Routine Saline Lock Insert [OM.PC] Routine EKG 12 Lead [EK] Stat 06/27/19 15:31 EKG Documentation Completion [RC] ASDIRECTED 06/27/19 15:55 CULTURE BLOOD [BC] Urgent 06/27/19 16:00 CULTURE BLOOD [BC] Urgent 06/27/19 16:47 CULTURE SPUTUM + SMEAR [RM] Stat - Assessment/Plan Last 24 Hours: My Active Orders 06/27/19 15:30 RT Aerosol Therapy [RC] ASDIRECTED Sodium Chloride 0.9% [Saline Flush] 10 ml FLUSH ASDIRECTED PRN Blood Culture x2 Reflex Set [OM.PC] Urgent Isolation [COMM] Routine Saline Lock Insert [OM.PC] Routine EKG 12 Lead [EK] Stat 06/27/19 15:31 EKG Documentation Completion [RC] ASDIRECTED 06/27/19 15:55 CULTURE BLOOD [BC] Urgent 06/27/19 16:00 CULTURE BLOOD [BC] Urgent 06/27/19 16:47 CULTURE SPUTUM + SMEAR [RM] Stat
--- NOTE | 2019-06-27 16:42 | CR ---
INDICATION: Cough, shortness of breath. 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 A dextroconvex scoliosis of the lower middle thoracic spine is again noted. The heart did not appear grossly enlarged. The heart is mildly enlarged in general. The pulmonary markings appear similar to the previous examination without a definite active infiltrate or effusion. IMPRESSION: 1. No definite acute process but cannot exclude exacerbation of COPD, which appears to be fairly severe. 2. Mild pulmonary fibrosis with markings unchanged from the previous study. 3. ASHD with cardiomegaly. 4. Osteoporosis, scoliosis, stable compression fractures with kyphosis. MTDD
[2019-06-27] MEDS ORDERED: Doxycycline 100 MG Tab PO ONE (17:23)
[2019-06-27] MEDS ORDERED: Meclizine 25 MG Tab PO ONE (17:34)
[2019-06-27 19:42] VITALS: BP 115/75; PULSE 71
== END 2019-06-27 17:40 | disposition home or self-care (01) ==
LOC: FB.ED 15:00
DX: J44.1 Chronic obstructive pulmonary disease with (acute) exacerbation (principal); I50.9 Heart failure, unspecified; Z88.0 Allergy status to penicillin; Z91.040 Latex allergy status; Z79.899 Other long term (current) drug therapy; Z79.82 Long term (current) use of aspirin
CPT/HCPCS: 36415; 71046; 80053; 82803; 83605; 83880; 84484; 85025; 87040; 87070; 87205; 87804; 93005; 94640; 96374; 99285; A9270; J2930; 99284; J7620-GY

== ENCOUNTER 2019-12-14 17:34 | Emergency (ER) | payer MEDICARE, OTHER ==
[2019-12-14] MEDS ORDERED: Sodium Chloride 0.9% 10 ML Syringe FLUSH PRN (18:07)
[2019-12-14] MEDS ORDERED: Furosemide 40 MG/4 ML VIAL IVPUSH ONE (18:11)
[2019-12-14] MEDS ORDERED: Albuterol/Ipratropium 3.0-0.5 MG/3 ML Neb Soln NEB ONE (18:11)
[2019-12-14] MEDS ORDERED: methylPREDNISolone Sodium Succinate 125 MG/2 ML SDV IVPUSH ONE (18:12)
[2019-12-14 19:02] LABS: PH VENOUS,POC 7.43 pH Units (7.32-7.43)
[2019-12-14 19:03] LABS: BASE EXCESS VENOUS,POC 7 mmol/L (-2-3); HCO3 VENOUS,POC 31 mmol/L (21-29); PCO2 VENOUS,POC 47 mmHg (41-51)
--- NOTE | 2019-12-14 19:32 | EDM.PDOC ---
ED HPI GENERAL MEDICAL PROBLEM - General Chief Complaint: Respiratory Problem Stated Complaint: Dyspnea Time Seen by Provider: 12/14/19 18:00 Source of Information: Reports: Patient History Limitations: Reports: No Limitations - History of Present Illness INITIAL COMMENTS - FREE TEXT/NARRATIVE: Patient presented to the ED because of worsening dyspnea x 2 days. She can only walk 10 feet and she easily gets winded. She also has increase in sputum production cough,although she denies having any fever or chills. She also has a 1 lb weight gain x 2days. There is no chest pain, palpitations, nausea or vomiting. - Related Data Allergies Allergy/AdvReac Type Severity Reaction Status Date / Time Penicillins Allergy Severe Hives Verified 06/27/19 15:14 latex Allergy Rash Verified 06/27/19 15:14 Home Meds: Home Meds Lutein/Minerals/Vit A,C & E [Ocuvite] 1 tab PO DAILY 12/05/12 [History] Multivitamins 1 each PO DAILY 12/05/12 [History] Zinc Gluconate [Zinc] 1 tab PO DAILY 12/05/12 [History] Furosemide [Lasix] 40 mg PO DAILY 11/02/16 [History] Cyanocobalamin (Vitamin B12) [Vitamin B12] 1,000 mcg PO DAILY 06/20/17 [History] Budesonide [Pulmicort] 0.5 mg INH BID 08/15/17 [History] Acetaminophen/Diphenhydramine [Tylenol Pm Ex-Strength Caplet] 1 each PO BEDTIME 09/26/17 [History] Albuterol [Ventolin HFA] 2 puff INH Q6H PRN 09/26/17 [History] Potassium Chloride 10 meq PO DAILY 09/26/17 [History] Albuterol/Ipratropium [DuoNeb 3.0-0.5 MG/3 ML] 3 ml NEB Q4H PRN 10/21/18 [History] polyethylene glycoL 3350 [MiraLAX] 17 gm PO DAILY PRN packet 04/19/19 [Rx] Aspirin 81 mg PO DAILY 04/28/19 [History] Calcium Carbonate/Vitamin D3 [Calcium 600 + Vit D 200] 2 tab PO DAILY 04/28/19 [History] Formoterol Fumarate [Perforomist] 20 mcg IH BID 04/28/19 [History] PEG 400/Propylene Glycol [Systane Lubricant Gel] 1 drop EYEBOTH QID PRN 04/28/19 [History] Tiotropium [place] [Spiriva Respimat] 2 puff INH DAILY 04/28/19 [History] Citalopram [Citalopram HBr] 20 mg PO DAILY #30 tab 04/29/19 [Rx] Azithromycin [Zithromax] 250 mg PO DAILY #6 tablet 12/14/19 [Rx] predniSONE [Prednisone] 40 mg PO DAILY #10 tablet 12/14/19 [Rx] Past Medical History HEENT History: Reports: Impaired Vision, Macular Degeneration Other HEENT History: Wears glasses. Cardiovascular History: Reports: Heart Failure Respiratory History: Reports: COPD Other Respiratory History: smoker for 60 years. 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 Cardiovascular Surgical History: Reports: Other (See Below) Other Cardiovascular Surgeries/Procedures: Vein stripping procedure 2. GI Surgical History: Reports: Appendectomy, Bariatric Procedure, Cholecystectomy, Colon, Hernia Repair/Other, Other (See Below) Other GI Surgeries/Procedures: Bowel obstruction. Female Surgical History: Reports: Hysterectomy Social & Family History - Family History Family Medical History: Noncontributory - Tobacco Use Smoking Status *Q: Unknown Ever Smoked - Caffeine Use Caffeine Use: Reports: Coffee Other Caffeine Use: diet pop. - Recreational Drug Use Recreational Drug Use: No - Living Situation & Occupation Occupation: Retired ED ROS GENERAL - Review of Systems Review Of Systems: See Below Constitutional: Reports: No Symptoms HEENT: Reports: No Symptoms Respiratory: Reports: Shortness of Breath, Cough, Sputum Cardiovascular: Reports: No Symptoms Endocrine: Reports: No Symptoms GI/Abdominal: Reports: No Symptoms : Reports: No Symptoms Musculoskeletal: Reports: No Symptoms Skin: Reports: No Symptoms Neurological: Reports: No Symptoms Psychiatric: Reports: No Symptoms Hematologic/Lymphatic: Reports: No Symptoms ED EXAM, GENERAL - Physical Exam Exam: See Below Exam Limited By: No Limitations General Appearance: Alert, No Apparent Distress Eye Exam: Bilateral Eye: PERRL Ears: Normal External Exam, Normal Canal Nose: Normal Inspection, Normal Mucosa Throat/Mouth: Normal Inspection, Normal Lips, Normal Teeth Head: Atraumatic, Normocephalic Neck: Normal Inspection, Supple, Non-Tender, Full Range of Motion Respiratory/Chest: No Respiratory Distress, Lungs Clear, Normal Breath Sounds, Rhonchi, Wheezing Cardiovascular: Normal Peripheral Pulses, Regular Rate, Rhythm, No Edema, No Gallop, No JVD, No Murmur GI/Abdominal: Normal Bowel Sounds, Soft, Non-Tender, No Organomegaly Back Exam: Normal Inspection, Full Range of Motion Extremities: Normal Inspection, Normal Range of Motion, Non-Tender Neurological: Alert, Oriented, CN II-XII Intact, Normal Cognition Course - Vital Signs Text/Narrative:: Labs/EKG/CXR was discussed with patient and her daughter Lasix 40 mg IV x1 Duoneb Solumedrol 125 mg IV x1 Zithromax 500 mg po x1 Last Recorded V/S: Last Vital Signs Temp 36.7 C 12/14/19 17:53 Pulse 70 12/14/19 19:30 Resp 17 12/14/19 19:30 BP 116/52 L 12/14/19 19:30 Pulse Ox 92 L 12/14/19 19:30 - Orders/Labs/Meds Orders: Active Orders 24 hr Category Date Time Status Chest 1V Frontal [CR] Stat Exams 12/14/19 18:07 Taken Saline Lock Insert [OM.PC] Routine Oth 12/14/19 18:07 Ordered EKG 12 Lead [EK] Routine Ther 12/14/19 18:07 Ordered Labs: Laboratory Tests 12/14/19 12/14/19 12/14/19 Range/Units 18:30 18:30 18:30 WBC 7.2 (4.5-12.0) X10-3/uL RBC 4.14 (3.23-5.20) x10(6)uL Hgb 12.8 (11.5-15.5) g/dL Hct 39.9 (30.0-51.3) % MCV 96.5 H (80-96) fL MCH 30.9 (27.7-33.6) pg MCHC 32.0 L (32.2-35.4) g/dL RDW 14.1 (11.5-15.5) % Plt Count 302 (125-369) X10(3)uL MPV 8.3 (7.4-10.4) fL Neut % (Auto) 73.0 (46-82) % Lymph % (Auto) 13.1 (13-37) % Branch % (Auto) 7.5 (4-12) % Eos % (Auto) 5 (1.0-5.0) % Baso % (Auto) 1 (0-2) % Neut # (Auto) 5.3 (1.6-8.3) # Lymph # (Auto) 0.9 (0.6-5.0) # Branch # (Auto) 0.5 (0.0-1.3) # Eos # (Auto) 0.4 (0.0-0.8) # Baso # (Auto) 0.1 (0.0-0.2) # POC VBG pH (7.32-7.43) pH Units POC VBG pCO2 (41-51) mmHg POC VBG HCO3 (21-29) mmol/L VBG Base Excess (-2-3) mmol/L O2 Delivery Device Sodium 138 (135-145) mmol/L Potassium 4.3 (3.5-5.3) mmol/L Chloride 98 L (100-110) mmol/L Carbon Dioxide 37 H (21-32) mmol/L BUN 30 H D (7-18) mg/dL Creatinine 0.9 (0.55-1.02) mg/dL Est Cr Clr Drug Dosing 46.36 mL/min Estimated GFR (MDRD) > 60 (>60) BUN/Creatinine Ratio 33.3 H (9-20) Glucose 91 (80-116) mg/dL Calcium 8.6 (8.6-10.2) mg/dL Total Bilirubin 0.4 (0.1-1.3) mg/dL AST 24 (5-25) IU/L ALT 21 (12-36) U/L Alkaline Phosphatase 104 (56-112) IU/L Troponin I 8.0 (4.0-60.3) pg/mL NT-Pro-B Natriuret Pep 342 (<=450) pg/mL Total Protein 6.2 (6.0-8.0) g/dL Albumin 3.3 (3.2-4.6) g/dL Globulin 2.9 g/dL Albumin/Globulin Ratio 1.1 /12/24 Range/Units 18:30 WBC (4.5-12.0) X10-3/uL RBC (3.23-5.20) x10(6)uL Hgb (11.5-15.5) g/dL Hct (30.0-51.3) % MCV (80-96) fL MCH (27.7-33.6) pg MCHC (32.2-35.4) g/dL RDW (11.5-15.5) % Plt Count (125-369) X10(3)uL MPV (7.4-10.4) fL Neut % (Auto) (46-82) % Lymph % (Auto) (13-37) % Branch % (Auto) (4-12) % Eos % (Auto) (1.0-5.0) % Baso % (Auto) (0-2) % Neut # (Auto) (1.6-8.3) # Lymph # (Auto) (0.6-5.0) # Branch # (Auto) (0.0-1.3) # Eos # (Auto) (0.0-0.8) # Baso # (Auto) (0.0-0.2) # POC VBG pH 7.43 (7.32-7.43) pH Units POC VBG pCO2 47 (41-51) mmHg POC VBG HCO3 31 H (21-29) mmol/L VBG Base Excess 7 H (-2-3) mmol/L O2 Delivery Device Nasal cannula Sodium (135-145) mmol/L Potassium (3.5-5.3) mmol/L Chloride (100-110) mmol/L Carbon Dioxide (21-32) mmol/L BUN (7-18) mg/dL Creatinine (0.55-1.02) mg/dL Est Cr Clr Drug Dosing mL/min Estimated GFR (MDRD) (>60) BUN/Creatinine Ratio (9-20) Glucose (80-116) mg/dL Calcium (8.6-10.2) mg/dL Total Bilirubin (0.1-1.3) mg/dL AST (5-25) IU/L ALT (12-36) U/L Alkaline Phosphatase (56-112) IU/L Troponin I (4.0-60.3) pg/mL NT-Pro-B Natriuret Pep (<=450) pg/mL Total Protein (6.0-8.0) g/dL Albumin (3.2-4.6) g/dL Globulin g/dL Albumin/Globulin Ratio Meds: Medications Discontinued Medications Generic Name Dose Route Start Last Admin Trade Name Eder PRN Reason Stop Dose Admin Albuterol/Ipratropium 3 ml 12/14/19 18:11 12/14/19 18:17 Duoneb 3.0-0.5 Mg/3 Ml NEB 12/14/19 18:12 3 ml ONETIME ONE Administration Azithromycin 500 mg 12/14/19 19:33 12/14/19 19:43 Zithromax PO 12/14/19 19:34 500 mg NOW STA Administration Furosemide 40 mg 12/14/19 18:11 12/14/19 18:17 Lasix IVPUSH 12/14/19 18:12 40 mg NOW ONE Administration Methylprednisolone Sodium Succinate 125 mg 12/14/19 18:12 12/14/19 18:17 Solu-Medrol IVPUSH 12/14/19 18:13 125 mg ONETIME ONE Administration Sodium Chloride 10 ml 12/14/19 18:07 12/14/19 18:17 Saline Flush FLUSH 10 ml ASDIRECTED PRN Administration Keep Vein Open Departure - Departure Time of Disposition: 19:30 Disposition: Home, Self-Care 01 Condition: Good Clinical Impression: COPD exacerbation - Discharge Information Prescriptions: predniSONE [Prednisone] 40 mg PO DAILY #10 tablet Azithromycin [Zithromax] 250 mg PO DAILY #6 tablet Instructions: Chronic Obstructive Pulmonary Disease Exacerbation Referrals: Belen Elaine CONTACT LENS ASSISTANT [Primary Care Provider] - Forms: ED Department Discharge Additional Instructions: Please read discharge instructions on COPD exacerbation Continue your neb treatment as prescribed Z-flory as directed Prednisone 20 mg, take 2 tablets daily for 5 days Follow up as needed Sepsis Event Note (ED) - Evaluation Sepsis Screening Result: No Definite Risk - Focused Exam Vital Signs: Vital Signs Temp Pulse Resp BP Pulse Ox 12/14/19 19:30 70 17 116/52 L 92 L 12/14/19 18:20 68 12/14/19 17:53 36.7 C 66 20 104/70 93 L - My Orders Last 24 Hours: My Active Orders 12/14/19 18:07 Chest 1V Frontal [CR] Stat Saline Lock Insert [OM.PC] Routine EKG 12 Lead [EK] Routine - Assessment/Plan Last 24 Hours: My Active Orders 12/14/19 18:07 Chest 1V Frontal [CR] Stat Saline Lock Insert [OM.PC] Routine EKG 12 Lead [EK] Routine
[2019-12-14] MEDS ORDERED: Azithromycin 500 MG Tab PO STA (19:33)
[2019-12-14 19:51] VITALS: BP 116/52; PULSE 70
--- NOTE | 2019-12-15 11:21 | CR ---
INDICATION: Dyspnea. CHEST, ONE VIEW: An AP upright portable view of the chest 12/14/19 was compared with 06/27/19 and 04/27/19. The heart appears to be at the upper limits of normal in size or slightly enlarged. The aorta is tortuous with calcification in the arch. Findings compatible with COPD are noted. Pulmonary markings are similar to the previous study without a definite active infiltrate or effusion. Dextroconvex scoliosis of the lower thoracic spine is noted. IMPRESSION: 1. Fairly stable appearance of the chest with no definite acute process. 2. Probable COPD. 3. ASHD. 4. Scoliosis. MTDD
== END 2019-12-14 19:57 | disposition home or self-care (01) ==
LOC: FB.ED 17:34
DX: J44.1 Chronic obstructive pulmonary disease with (acute) exacerbation (principal); I50.9 Heart failure, unspecified; F41.9 Anxiety disorder, unspecified; F32.9 Major depressive disorder, single episode, unspecified; Z90.710 Acquired absence of both cervix and uterus; Z90.49 Acquired absence of other specified parts of digestive tract; Z88.0 Allergy status to penicillin; Z91.040 Latex allergy status; Z79.82 Long term (current) use of aspirin; Z79.899 Other long term (current) drug therapy
CPT/HCPCS: 36415; 71045; 80053; 83880; 84484; 85025; 93005; 94640; 96374; 96375; 99284; 99285; A9270; J1940; J2930; J7620-GY

== ENCOUNTER 2020-01-14 16:06 | Emergency (ER) | payer MEDICARE ==
--- NOTE | 2020-01-14 16:34 | EDM.PDOC ---
ED HPI GENERAL MEDICAL PROBLEM - General Stated Complaint: FELL Time Seen by Provider: 01/14/20 16:34 Source of Information: Reports: Patient History Limitations: Reports: No Limitations - History of Present Illness INITIAL COMMENTS - FREE TEXT/NARRATIVE: 79-year-old female who reports that she was trying to sit on the edge of her bed and she misjudged this and instead fell to the floor and landed directly on her buttock. She had immediate pain in her right hip and buttock area and has had pain in that area since then. This occurred approximately 4 PM on 01/13/2020. She states when she is at rest and not moving her leg and not trying to bear weight that her pain is a 0/10. She reports that when she tries to get up and walk or bear weight that the pain goes up to a 10/10. She is able to ambulate with her walker but the pain was so severe that she felt that she needed further evaluation and presents via taxi. She has had normal bowel movements with no blood. She has had no abdominal pain. There is been no weakness or dizziness. Her breathing has been normal for her. She does feel that for the past few days and even prior to the fall she has had some intermittent dysuria and frequency with urination. She has had no fevers or chills. She has been eating and drinking normally. No nausea or vomiting. There is no back pain. No neck pain. She did not hit her head. There are no other associated signs or symptoms. There are no other modifying factors. Onset: Other (01/13/2020 at 4 PM.) Duration: Constant Location: Reports: Lower Extremity, Right (Right hip and pelvis area. 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: Reports: Other (see below) (Nothing.) hip Pain Score (Numeric/FACES): 10 - Related Data Allergies Allergy/AdvReac Type Severity Reaction Status Date / Time Penicillins Allergy Severe Hives Verified 06/27/19 15:14 latex Allergy Rash Verified 06/27/19 15:14 Home Meds: Home Meds Lutein/Minerals/Vit A,C & E [Ocuvite] 1 tab PO DAILY 12/05/12 [History] Multivitamins 1 each PO DAILY 12/05/12 [History] Zinc Gluconate [Zinc] 1 tab PO DAILY 12/05/12 [History] Furosemide [Lasix] 40 mg PO DAILY 11/02/16 [History] Cyanocobalamin (Vitamin B12) [Vitamin B12] 1,000 mcg PO DAILY 06/20/17 [History] Budesonide [Pulmicort] 0.5 mg INH BID 08/15/17 [History] Acetaminophen/Diphenhydramine [Tylenol Pm Ex-Strength Caplet] 1 each PO BEDTIME 09/26/17 [History] Albuterol [Ventolin HFA] 2 puff INH Q6H PRN 09/26/17 [History] Potassium Chloride 10 meq PO DAILY 09/26/17 [History] Albuterol/Ipratropium [DuoNeb 3.0-0.5 MG/3 ML] 3 ml NEB Q4H PRN 10/21/18 [History] polyethylene glycoL 3350 [MiraLAX] 17 gm PO DAILY PRN packet 04/19/19 [Rx] Aspirin 81 mg PO DAILY 04/28/19 [History] Calcium Carbonate/Vitamin D3 [Calcium 600 + Vit D 200] 2 tab PO DAILY 04/28/19 [History] Formoterol Fumarate [Perforomist] 20 mcg IH BID 04/28/19 [History] PEG 400/Propylene Glycol [Systane Lubricant Gel] 1 drop EYEBOTH QID PRN 04/28/19 [History] Tiotropium [place] [Spiriva Respimat] 2 puff INH DAILY 04/28/19 [History] Citalopram [Citalopram HBr] 20 mg PO DAILY #30 tab 04/29/19 [Rx] Azithromycin [Zithromax] 250 mg PO DAILY #6 tablet 12/14/19 [Rx] predniSONE [Prednisone] 40 mg PO DAILY #10 tablet 12/14/19 [Rx] cephALEXin [Keflex] 500 mg PO TID 7 Days #21 cap 01/14/20 [Rx] traMADol [Ultram] 50 mg PO Q6H PRN #16 tab 01/14/20 [Rx] Past Medical History HEENT History: Reports: Impaired Vision, Macular Degeneration Other HEENT History: Wears glasses. Cardiovascular History: Reports: Heart Failure Respiratory History: Reports: COPD (She is O2 dependent.) Other Respiratory History: smoker for 60 years. Gastrointestinal History: Reports: Bowel Obstruction Other [employer] IN History: Musculoskeletal History: Reports: Back Pain, Chronic Psychiatric History: Reports: Anxiety, Depression Oncologic (Cancer) History: Reports: Uterine - Infectious Disease History Infectious Disease History: Reports: Measles - Past Surgical History HEENT Surgical History: Reports: Cataract Surgery, Other (See Below) Other HEENT Surgeries/Procedures: Cornea transplant. Cardiovascular Surgical History: Reports: Other (See Below) Other Cardiovascular Surgeries/Procedures: Vein stripping procedure 2. GI Surgical History: Reports: Appendectomy, Bariatric Procedure, Cholecystectomy, Colon, Hernia Repair/Other, Other (See Below) Other GI Surgeries/Procedures: Bowel obstruction. Female Surgical History: Reports: Hysterectomy Social & Family History - Tobacco Use Smoking Status *Q: Former Smoker (States she quit 2 years ago but was a heavy smoker prior to that.) - Caffeine Use Caffeine Use: Reports: Coffee Other Caffeine Use: diet pop. - Alcohol Use Alcohol Use History: No - Living Situation & Occupation Occupation: Retired Social History Comment: She lives by herself in her own apartment but her daughter lives in an apartment below her. ED ROS GENERAL - Review of Systems Review Of Systems: See Below Constitutional: Reports: No Symptoms HEENT: Reports: No Symptoms Respiratory: Reports: No Symptoms Cardiovascular: Reports: No Symptoms Endocrine: Reports: No Symptoms GI/Abdominal: Reports: No Symptoms : Reports: Dysuria Musculoskeletal: Reports: Other (Pelvis pain and right hip and buttock pain) Skin: Reports: No Symptoms Neurological: Reports: No Symptoms Immunologic: Reports: No Symptoms ED EXAM, GENERAL - Physical Exam Exam: See Below Exam Limited By: No Limitations General Appearance: Alert, WD/WN, Mild Distress Eye Exam: Bilateral Eye: EOMI, Normal Inspection Ears: Normal External Exam, Hearing Grossly Normal Ear Exam: Bilateral Ear: Auricle Normal Nose: Normal Inspection, Normal Mucosa, No Blood Throat/Mouth: Normal Inspection, Normal Oropharynx, Normal Voice, No Airway Compromise Head: Atraumatic, Normocephalic Neck: Normal Inspection, Supple, Non-Tender, Full Range of Motion Respiratory/Chest: No Respiratory Distress, Lungs Clear, Normal Breath Sounds, No Accessory Muscle Use, Chest Non-Tender Cardiovascular: Normal Peripheral Pulses, Regular Rate, Rhythm, No Murmur Peripheral Pulses: 2+: Radial (L), Radial (R), Dorsalis Pedis (L), Dorsalis Pedis (R) GI/Abdominal: Normal Bowel Sounds, Soft, Non-Tender, No Organomegaly, Pelvis Stable, Other (There is some tenderness to palpation over the anterior and inferior pelvis. There is no crepitus noted here.) Back Exam: Full Range of Motion, Other (Kyphosis.) Extremities: Normal Inspection, Normal Range of Motion, No Pedal Edema, Normal Capillary Refill, Other (Some tenderness around the right hip and buttock area.) Neurological: Alert, Oriented, CN II-XII Intact, Normal Cognition, No Motor/Sensory Deficits Skin Exam: Warm, Dry, Intact, Normal Color Course - Vital Signs Last Recorded V/S: Last Vital Signs Temp 36.4 C 01/14/20 16:15 Pulse 68 01/14/20 16:15 Resp 18 01/14/20 16:15 BP 119/65 01/14/20 16:15 Pulse Ox 94 L 01/14/20 16:15 - Orders/Labs/Meds Orders: Active Orders 24 hr Category Date Time Status Pelvis wo Cont [CT] Stat Exams 01/14/20 17:00 Taken cephALEXin [Keflex] Med 01/14/20 20:20 Once 500 mg PO ONETIME ONE traMADol [Ultram] Med 01/14/20 20:20 Once 50 mg PO ONETIME ONE Medication Orders Cephalexin (Keflex) 500 mg PO ONETIME ONE Stop: 01/14/20 20:21 Tramadol HCl (Ultram) 50 mg PO ONETIME ONE Stop: 01/14/20 20:21 Labs: Laboratory Tests 01/14/20 Range/Units 17:11 Urine Color Yellow (YELLOW) Urine Appearance Clear (CLEAR) Urine pH 6.0 (5.0-6.5) Ur Specific [place] 1.010 (1.010-1.025) Urine Protein Negative (NEGATIVE) mg/dL Urine Glucose (UA) Normal (NORMAL) mg/dL Urine Ketones Negative (NEGATIVE) mg/dL Urine Occult Blood Trace (NEGATIVE) Urine Nitrite Negative (NEGATIVE) Urine Bilirubin Negative (NEGATIVE) Urine Urobilinogen Normal (NEGATIVE) mg/dL Ur Leukocyte Esterase Moderate H (NEGATIVE) Urine RBC 0-5 (0-5) Urine WBC 5-10 H (0-5) Ur Squamous Epith Cells Rare (NS,R,O) Urine Bacteria Few H (NS) Urine Yeast Rare H (NS) Meds: Medications Generic Name Dose Route Start Last Admin Trade Name Eder PRN Reason Stop Dose Admin Cephalexin 500 mg 01/14/20 20:20 Keflex PO 01/14/20 20:21 ONETIME ONE Tramadol HCl 50 mg 01/14/20 20:20 Ultram PO 01/14/20 20:21 ONETIME ONE - Radiology Interpretation Free Text/Narrative:: CT scan of the pelvis and right hip shows a right inferior pubic rami fracture. This was per the [facility] radiologist - Re-Assessments/Exams Free Text/Narrative Re-Assessment/Exam: 01/14/20 19:55: The patient does have right inferior pubic rami fracture. Her urinalysis also shows evidence of infection. She has been able to ambulate to the bathroom with assistance and her pain is improved when she is at rest. She is very desirous of wanting to go home. I will give the patient tramadol 50 mg now and send her with a prescription for tramadol. With the patient's permission, I did call the patient's daughter and she is also in agreement with the plan for discharge and has to stay with her mother for the next few days. I will place the patient on Keflex 500 mg for treatment of her urinary tract infection. I will also give her her first dose tonight. She can take Tylenol 1000 mg by mouth every 6 hours as needed for pain. Precautions and reasons for return to the emergency department were discussed with the patient she was in the emergency department were also discussed with the patient's daughter and they were also detailed in the patient's discharge instructions. Departure - Departure Time of Disposition: 20:15 Disposition: Home, Self-Care 01 Condition: Good Clinical Impression: Inferior pubic ramus fracture Qualifiers: Encounter type: initial encounter Fracture type: closed Laterality: right Qualified Code(s): S32.591A - Other specified fracture of right pubis, initial encounter for closed fracture UTI (urinary tract infection) Qualifiers: Urinary tract infection type: site unspecified Hematuria presence: without hematuria Qualified Code(s): N39.0 - Urinary tract infection, site not specified Fall from standing Qualifiers: Encounter type: initial encounter Qualified Code(s): W19.XXXA - Unspecified fall, initial encounter - Discharge Information Prescriptions: cephALEXin [Keflex] 500 mg PO TID 7 Days #21 cap traMADol [Ultram] 50 mg PO Q6H PRN #16 tab PRN Reason: Moderate to severe pain Instructions: Antibiotic Medicine, Adult, [id number], Urinary Tract Infection, Adult, [id number], Simple Pelvic Fracture, Adult Referrals: Belen Elaine, GRAIN MILL WORKER [Primary Care Provider] - Additional Instructions: The CT scan of your pelvis showed no fracture of your hip but she did have a fracture of your right inferior pubic rami. It is not something that would require any surgery. It will need to heal on its own. You will need to use your walker and bear weight as tolerated. You can take Tylenol 1000 mg by mouth every 6 hours as needed for pain. Medication as prescribed for more severe pain (tramadol). This medication can be constipating and you should use your MiraLAX up to 2-3 times a day if you begin having symptoms with constipation. Increase your fluid intake. You also appear to have a urinary tract infection and I am placing you on Keflex to treat this. Back to the emergency department for marked increase in pain, abdominal pain, severe weakness, unrelenting vomiting, worse breathing or any other concerning sign or symptom. Sepsis Event Note (ED) - Focused Exam Vital Signs: Vital Signs Temp Pulse Resp BP Pulse Ox 01/14/20 16:15 36.4 C 68 18 119/65 94 L - My Orders Last 24 Hours: My Active Orders 01/14/20 17:00 Pelvis wo Cont [CT] Stat 01/14/20 20:20 cephALEXin [Keflex] 500 mg PO ONETIME ONE traMADol [Ultram] 50 mg PO ONETIME ONE - Assessment/Plan Last 24 Hours: My Active Orders 01/14/20 17:00 Pelvis wo Cont [CT] Stat 01/14/20 20:20 cephALEXin [Keflex] 500 mg PO ONETIME ONE traMADol [Ultram] 50 mg PO ONETIME ONE
[2020-01-14 20:02] VITALS: BP 119/65; PULSE 68
[2020-01-14] MEDS ORDERED: traMADol 50 MG Tab PO ONE (20:20)
[2020-01-14] MEDS ORDERED: Cephalexin 500 MG Cap PO ONE (20:20)
== END 2020-01-14 20:55 | disposition home or self-care (01) ==
LOC: FB.ED 16:06
DX: S32.591A Other specified fracture of right pubis, initial encounter for closed fracture (principal); N39.0 Urinary tract infection, site not specified; M40.209 Unspecified kyphosis, site unspecified; I50.9 Heart failure, unspecified; J44.9 Chronic obstructive pulmonary disease, unspecified; F41.9 Anxiety disorder, unspecified; F32.9 Major depressive disorder, single episode, unspecified; Z88.0 Allergy status to penicillin; Z91.040 Latex allergy status; Z79.82 Long term (current) use of aspirin; Z79.899 Other long term (current) drug therapy; Z87.891 Personal history of nicotine dependence; W18.30XA Fall on same level, unspecified, initial encounter
CPT/HCPCS: 72192; 81001; 87086; 87088; 87186; 99284; A9270

== ENCOUNTER 2020-02-11 16:53 | Emergency (ER) | payer MEDICARE, OTHER ==
[2020-02-11] MEDS ORDERED: Furosemide 20 MG Tab PO ONE (17:36)
[2020-02-11] MEDS ORDERED: Albuterol 0.083% 2.5 MG/3 ML Neb Soln NEB ONE (17:37)
[2020-02-11] MEDS ORDERED: methylPREDNISolone Sodium Succinate 125 MG/2 ML SDV IM ONE (17:38)
--- NOTE | 2020-02-11 17:39 | EDM.PDOC ---
ED HPI GENERAL MEDICAL PROBLEM - General Chief Complaint: Respiratory Problem Stated Complaint: SOB Time Seen by Provider: 02/11/20 17:00 Source of Information: Reports: Patient History Limitations: Reports: No Limitations - History of Present Illness INITIAL COMMENTS - FREE TEXT/NARRATIVE: presents with progressive sob and leg swelling has has gained about 8 lb in the last one week had pelvic fracture and had been restricted with movement now started moving around more and noted she was getting more sob But her oxygen requirement has not increased ( uses 2 liters , this has not change ) Onset: Gradual Onset Date: 02/08/20 Duration: Getting Worse Location: Reports: Chest Quality: Reports: Same as Previous Episode Severity: Mild Improves with: Reports: Rest Worsens with: Reports: Other (activity), Movement Context: Reports: Activity Associated Symptoms: Reports: Cough, Shortness of Breath (with activity) - Related Data Allergies Allergy/AdvReac Type Severity Reaction Status Date / Time Penicillins Allergy Severe Hives Verified 06/27/19 15:14 latex Allergy Rash Verified 06/27/19 15:14 Home Meds: Home Meds Lutein/Minerals/Vit A,C & E [Ocuvite] 1 tab PO DAILY 12/05/12 [History] Multivitamins 1 each PO DAILY 12/05/12 [History] Zinc Gluconate [Zinc] 1 tab PO DAILY 12/05/12 [History] Furosemide [Lasix] 40 mg PO DAILY 11/02/16 [History] Cyanocobalamin (Vitamin B12) [Vitamin B12] 1,000 mcg PO DAILY 06/20/17 [History] Budesonide [Pulmicort] 0.5 mg INH BID 08/15/17 [History] Acetaminophen/Diphenhydramine [Tylenol Pm Ex-Strength Caplet] 1 each PO BEDTIME 09/26/17 [History] Albuterol [Ventolin HFA] 2 puff INH Q6H PRN 09/26/17 [History] Potassium Chloride 10 meq PO DAILY 09/26/17 [History] Albuterol/Ipratropium [DuoNeb 3.0-0.5 MG/3 ML] 3 ml NEB Q4H PRN 10/21/18 [History] polyethylene glycoL 3350 [MiraLAX] 17 gm PO DAILY PRN packet 04/19/19 [Rx] Aspirin 81 mg PO DAILY 01/23/20 [History] Calcium Carbonate/Vitamin D3 [Calcium 600 + Vit D 200] 2 tab PO DAILY 04/28/19 [History] Formoterol Fumarate [Perforomist] 20 mcg IH BID 04/28/19 [History] PEG 400/Propylene Glycol [Systane Lubricant Gel] 1 drop EYEBOTH QID PRN 04/28/19 [History] Tiotropium [place] [Spiriva Respimat] 2 puff INH DAILY 04/28/19 [History] Citalopram [Citalopram HBr] 20 mg PO DAILY #30 tab 04/29/19 [Rx] Azithromycin [Zithromax] 250 mg PO DAILY #6 tablet 12/14/19 [Rx] predniSONE [Prednisone] 40 mg PO DAILY #10 tablet 12/14/19 [Rx] cephALEXin [Keflex] 500 mg PO TID 7 Days #21 cap 01/14/20 [Rx] traMADol [Ultram] 50 mg PO Q6H PRN #16 tab 01/14/20 [Rx] Azithromycin [Zithromax] 500 mg PO DAILY #4 tab 02/11/20 [Rx] Past Medical History HEENT History: Reports: Impaired Vision, Macular Degeneration Other HEENT History: Wears glasses. Cardiovascular History: Reports: Heart Failure Respiratory History: Reports: COPD (She is O2 dependent.) Other Respiratory History: smoker for 60 years. 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 Cardiovascular Surgical History: Reports: Other (See Below) Other Cardiovascular Surgeries/Procedures: Vein stripping procedure 2. GI Surgical History: Reports: Appendectomy, Bariatric Procedure, Cholecystectomy, Colon, Hernia Repair/Other, Other (See Below) Other GI Surgeries/Procedures: Bowel obstruction. Female Surgical History: Reports: Hysterectomy Social & Family History - Family History Family Medical History: Noncontributory - Caffeine Use Caffeine Use: Reports: Coffee Other Caffeine Use: diet pop. - Living Situation & Occupation Occupation: Retired ED ROS GENERAL - Review of Systems Review Of Systems: See Below Constitutional: Reports: Malaise, Weakness HEENT: Reports: No Symptoms Respiratory: Reports: Shortness of Breath. Denies: Wheezing, Pleuritic Chest Pain, Cough, Sputum Cardiovascular: Reports: Dyspnea on Exertion, Edema. Denies: Chest Pain, Lightheadedness, Orthopnea, Palpitations, PND Endocrine: Reports: Fatigue GI/Abdominal: Reports: No Symptoms Musculoskeletal: Reports: No Symptoms Skin: Reports: No Symptoms Neurological: Reports: No Symptoms. Denies: Confusion, Dizziness, Headache ED EXAM, GENERAL - Physical Exam Exam: See Below Exam Limited By: No Limitations General Appearance: Alert, WD/WN, No Apparent Distress. No: Mild Distress, Moderate Distress Eye Exam: Bilateral Eye: EOMI Ear Exam: Bilateral Ear: TM normal Nose: Normal Inspection Neck: Supple, Non-Tender Respiratory/Chest: Decreased Breath Sounds, Crackles (basal). No: Rhonchi, Wheezing, Accessory Muscle Use, Retractions Cardiovascular: Regular Rate, Rhythm, Other (bilateral pitting edema to mid legs) Peripheral Pulses: 2+: Dorsalis Pedis (L), Dorsalis Pedis (R) GI/Abdominal: Soft Neurological: Alert, Oriented, CN II-XII Intact Psychiatric: Normal Affect, Normal Mood Skin Exam: Warm Lymphatic: No Adenopathy Course - Vital Signs Last Recorded V/S: Last Vital Signs Temp 36.6 C 02/11/20 16:53 Pulse 98 02/11/20 16:53 Resp 17 02/11/20 16:53 BP 95/54 L 02/11/20 16:53 Pulse Ox 96 02/11/20 16:53 - Orders/Labs/Meds Orders: Active Orders 24 hr Category Date Time Status RT Aerosol Therapy [RC] ASDIRECTED Care 02/11/20 17:37 Active RT Aerosol Therapy [RC] ASDIRECTED Care 02/11/20 18:33 Active Chest 1V Frontal [CR] Stat Exams 02/11/20 17:36 Taken Labs: Laboratory Tests 02/11/20 02/11/20 02/11/20 Range/Units 17:45 17:45 17:45 WBC 8.5 (4.5-12.0) X10-3/uL RBC 4.13 (3.23-5.20) x10(6)uL Hgb 13.3 (11.5-15.5) g/dL Hct 40.2 (30.0-51.3) % MCV 97.4 H (80-96) fL MCH 32.2 (27.7-33.6) pg MCHC 33.1 (32.2-35.4) g/dL RDW 14.6 (11.5-15.5) % Plt Count 323 (125-369) X10(3)uL MPV 7.7 (7.4-10.4) fL Neut % (Auto) 77.1 (46-82) % Lymph % (Auto) 9.7 L (13-37) % [place]manuel % (Auto) 6.1 (4-12) % Eos % (Auto) 3 (1.0-5.0) % Baso % (Auto) 5 H (0-2) % Neut # (Auto) 6.6 (1.6-8.3) # Lymph # (Auto) 0.8 (0.6-5.0) # Emanuel # (Auto) 0.5 (0.0-1.3) # Eos # (Auto) 0.2 (0.0-0.8) # Baso # (Auto) 0.4 H (0.0-0.2) # PT (9.0-11.1) sec INR (1.00-1.24) D-Dimer, Quantitative (0.0-0.59) mg/LFEU Sodium 139 (135-145) mmol/L Potassium 5.0 (3.5-5.3) mmol/L Chloride 96 L (100-110) mmol/L Carbon Dioxide 42 H* (21-32) mmol/L BUN 23 H (7-18) mg/dL Creatinine 1.1 H (0.55-1.02) mg/dL Est Cr Clr Drug Dosing TNP Estimated GFR (MDRD) 48 L (>60) BUN/Creatinine Ratio 20.9 H (9-20) Glucose 128 H (80-116) mg/dL Calcium 9.1 (8.6-10.2) mg/dL NT-Pro-B Natriuret Pep 368 (<=450) pg/mL Urine Color (YELLOW) Urine Appearance (CLEAR) Urine pH (5.0-6.5) Ur Specific [place] (1.010-1.025) Urine Protein (NEGATIVE) mg/dL Urine Glucose (UA) (NORMAL) mg/dL Urine Ketones (NEGATIVE) mg/dL Urine Occult Blood (NEGATIVE) Urine Nitrite (NEGATIVE) Urine Bilirubin (NEGATIVE) Urine Urobilinogen (NEGATIVE) mg/dL Ur Leukocyte Esterase (NEGATIVE) Urine RBC (0-5) Urine WBC (0-5) Ur Squamous Epith Cells (NS,R,O) Urine Bacteria (NS) 02/11/20 02/11/20 02/11/20 Range/Units 17:45 17:45 17:45 WBC (4.5-12.0) X10-3/uL RBC (3.23-5.20) x10(6)uL Hgb (11.5-15.5) g/dL Hct (30.0-51.3) % MCV (80-96) fL MCH (27.7-33.6) pg MCHC (32.2-35.4) g/dL RDW (11.5-15.5) % Plt Count (125-369) X10(3)uL MPV (7.4-10.4) fL Neut % (Auto) (46-82) % Lymph % (Auto) (13-37) % Emanuel % (Auto) (4-12) % Eos % (Auto) (1.0-5.0) % Baso % (Auto) (0-2) % Neut # (Auto) (1.6-8.3) # Lymph # (Auto) (0.6-5.0) # Emanuel # (Auto) (0.0-1.3) # Eos # (Auto) (0.0-0.8) # Baso # (Auto) (0.0-0.2) # PT 11.6 H (9.0-11.1) sec INR 1.08 (1.00-1.24) D-Dimer, Quantitative 2.30 H (0.0-0.59) mg/LFEU Sodium (135-145) mmol/L Potassium (3.5-5.3) mmol/L Chloride (100-110) mmol/L Carbon Dioxide (21-32) mmol/L BUN (7-18) mg/dL Creatinine (0.55-1.02) mg/dL Est Cr Clr Drug Dosing Estimated GFR (MDRD) (>60) BUN/Creatinine Ratio (9-20) Glucose (80-116) mg/dL Calcium (8.6-10.2) mg/dL NT-Pro-B Natriuret Pep (<=450) pg/mL Urine Color Yellow (YELLOW) Urine Appearance Clear (CLEAR) Urine pH 6.5 (5.0-6.5) Ur Specific [place] 1.010 (1.010-1.025) Urine Protein Negative (NEGATIVE) mg/dL Urine Glucose (UA) Normal (NORMAL) mg/dL Urine Ketones Negative (NEGATIVE) mg/dL Urine Occult Blood Moderate H (NEGATIVE) Urine Nitrite Negative (NEGATIVE) Urine Bilirubin Negative (NEGATIVE) Urine Urobilinogen Normal (NEGATIVE) mg/dL Ur Leukocyte Esterase Small H (NEGATIVE) Urine RBC 0-5 (0-5) Urine WBC 0-5 (0-5) Ur Squamous Epith Cells Rare (NS,R,O) Urine Bacteria Rare H (NS) Meds: Medications Discontinued Medications Generic Name Dose Route Start Last Admin Trade Name Eder PRN Reason Stop Dose Admin Albuterol 2.5 mg 02/11/20 17:37 02/11/20 17:45 Proventil Neb Soln NEB 02/11/20 17:38 2.5 mg ONETIME ONE Administration Azithromycin 500 mg 02/11/20 18:30 02/11/20 18:49 Zithromax PO 02/11/20 18:31 500 mg ONETIME ONE Administration Budesonide 0.5 mg 02/11/20 18:33 02/11/20 18:49 Pulmicort NEB 02/11/20 18:34 0.5 mg ONETIME ONE Administration Furosemide 60 mg 02/11/20 17:36 02/11/20 17:49 Lasix PO 02/11/20 17:37 60 mg ONETIME ONE Administration Methylprednisolone Sodium Succinate 125 mg 02/11/20 17:38 02/11/20 17:44 Solu-Medrol IM 02/11/20 17:39 125 mg ONETIME ONE Administration Warfarin Sodium 5 mg 02/11/20 18:42 02/11/20 18:48 Coumadin PO 02/11/20 18:43 5 mg ONETIME ONE Administration - Re-Assessments/Exams Free Text/Narrative Re-Assessment/Exam: 02/11/20 18:48 pt had labs done , with chest Xray has been coughing with sob was treated for COPD exacerbation : solumedrol , Neb , and zithromax labs did show Co2 retention Given extra dose of lasix pt states she had run out of coumadin for about 2 weeks and only restarted taking the coumadin 2 days ago ( INR is subtherapeutic Pt given 5mg of coumadin ddimer ordered : slight elevation 02/11/20 19:35 Departure - Departure Time of Disposition: 19:35 Disposition: Home, Self-Care 01 Clinical Impression: COPD exacerbation, CHF exacerbation, Chronic anticoagulation Prescriptions: Azithromycin [Zithromax] 500 mg PO DAILY #4 tab Referrals: Belen Elaine VENEER GLUER [Primary Care Provider] - Forms: ED Department Discharge Additional Instructions: 1) Continue with recommended dose of coumadin 2)Keep appt to check INR / see your PCP on thursday 3) Increase dose of lasix to 80 mg in at 6-8am and 80mg at 12-2pm for 3 days 4) Daily weight ( goal is < 150#) 5) return to ER if symptoms get worse Sepsis Event Note (ED) - Focused Exam Vital Signs: Vital Signs Temp Pulse Resp BP Pulse Ox 02/11/20 16:53 36.6 C 98 17 95/54 L 96 - My Orders Last 24 Hours: My Active Orders 02/11/20 17:36 Chest 1V Frontal [CR] Stat 02/11/20 17:37 RT Aerosol Therapy [RC] ASDIRECTED 02/11/20 18:33 RT Aerosol Therapy [RC] ASDIRECTED - Assessment/Plan Last 24 Hours: My Active Orders 02/11/20 17:36 Chest 1V Frontal [CR] Stat 02/11/20 17:37 RT Aerosol Therapy [RC] ASDIRECTED 02/11/20 18:33 RT Aerosol Therapy [RC] ASDIRECTED
[2020-02-11 18:10] VITALS: BP 95/54; PULSE 98
[2020-02-11] MEDS ORDERED: Azithromycin 500 MG Tab PO ONE (18:30)
[2020-02-11] MEDS ORDERED: Budesonide 0.5 MG/2 ML Neb Susp NEB ONE (18:33)
[2020-02-11] MEDS ORDERED: Warfarin 5 MG Tab PO ONE (18:42)
--- NOTE | 2020-02-13 11:05 | CR ---
INDICATION: Chest pain. CHEST, ONE VIEW: A single AP upright portable view of the chest 02/12/20 was compared with 02/11/20 and 12/14/19 revealing the heart to be normal in size and shape. The aorta is somewhat tortuous with calcification in the arch and descending portion. The diaphragm leaves are somewhat flattened with hyperaeration suggesting COPD. Overlying EKG leads are noted. Dextroconvex scoliosis of the thoracic spine is noted. A definite active infiltrate or effusion was not identified. IMPRESSION: 1. No acute process. 2. ASD aorta. 3. Scoliosis. 4. COPD. MTDD
== END 2020-02-11 20:05 | disposition home or self-care (01) ==
LOC: FB.ED 16:53
DX: J44.1 Chronic obstructive pulmonary disease with (acute) exacerbation (principal); I50.9 Heart failure, unspecified; F41.9 Anxiety disorder, unspecified; F32.9 Major depressive disorder, single episode, unspecified; Z79.01 Long term (current) use of anticoagulants; Z88.0 Allergy status to penicillin; Z91.040 Latex allergy status; Z79.82 Long term (current) use of aspirin; Z79.899 Other long term (current) drug therapy; Z99.81 Dependence on supplemental oxygen
CPT/HCPCS: 36415; 71045; 80048; 81001; 83880; 85025; 85379; 85610; 93005; 94640; 96372; 99285; A9270; J2930; 99284

== ENCOUNTER 2020-02-12 19:40 | Emergency (ER) | payer MEDICARE ==
[2020-02-12] MEDS ORDERED: Aspirin 81 MG Tab.Chew PO ONE (19:53)
[2020-02-12] MEDS: Sodium Chloride 0.9% 10 ML Syringe FLUSH PRN ×2 (19:55→20:33)
[2020-02-12] MEDS ORDERED: Sodium Chloride 0.9% 500 ML IV ONE (20:26)
--- NOTE | 2020-02-12 20:59 | EDM.PDOC ---
ED HPI GENERAL MEDICAL PROBLEM - General Stated Complaint: SOB Time Seen by Provider: 02/12/20 19:55 Source of Information: Reports: Patient History Limitations: Reports: No Limitations - History of Present Illness INITIAL COMMENTS - FREE TEXT/NARRATIVE: Patient presented the ED because of chest heaviness and dyspnea. She was discharged yesterday due to CHF exacerbation and COPD and she is taking Lasix 80 mg BID just today. When she arrived in the ED she was hypotensive. There is no associated fever/chills, cough or cold symptoms. - Related Data Allergies Allergy/AdvReac Type Severity Reaction Status Date / Time Penicillins Allergy Severe Hives Verified 06/27/19 15:14 latex Allergy Rash Verified 06/27/19 15:14 Home Meds: Home Meds Lutein/Minerals/Vit A,C & E [Ocuvite] 1 tab PO DAILY 12/05/12 [History] Multivitamins 1 each PO DAILY 12/05/12 [History] Zinc Gluconate [Zinc] 1 tab PO DAILY 12/05/12 [History] Furosemide [Lasix] 40 mg PO DAILY 11/02/16 [History] Cyanocobalamin (Vitamin B12) [Vitamin B12] 1,000 mcg PO DAILY 06/20/17 [History] Budesonide [Pulmicort] 0.5 mg INH BID 08/15/17 [History] Acetaminophen/Diphenhydramine [Tylenol Pm Ex-Strength Caplet] 1 each PO BEDTIME 09/26/17 [History] Albuterol [Ventolin HFA] 2 puff INH Q6H PRN 09/26/17 [History] Potassium Chloride 10 meq PO DAILY 09/26/17 [History] Albuterol/Ipratropium [DuoNeb 3.0-0.5 MG/3 ML] 3 ml NEB Q4H PRN 10/21/18 [History] polyethylene glycoL 3350 [MiraLAX] 17 gm PO DAILY PRN packet 04/19/19 [Rx] Aspirin 81 mg PO DAILY 04/28/19 [History] Calcium Carbonate/Vitamin D3 [Calcium 600 + Vit D 200] 2 tab PO DAILY 04/28/19 [History] Formoterol Fumarate [Perforomist] 20 mcg IH BID 04/28/19 [History] PEG 400/Propylene Glycol [Systane Lubricant Gel] 1 drop EYEBOTH QID PRN 04/28/19 [History] Tiotropium [place] [Spiriva Respimat] 2 puff INH DAILY 04/28/19 [History] Citalopram [Citalopram HBr] 20 mg PO DAILY #30 tab 04/29/19 [Rx] Azithromycin [Zithromax] 250 mg PO DAILY #6 tablet 12/14/19 [Rx] predniSONE [Prednisone] 40 mg PO DAILY #10 tablet 12/14/19 [Rx] cephALEXin [Keflex] 500 mg PO TID 7 Days #21 cap 01/14/20 [Rx] traMADol [Ultram] 50 mg PO Q6H PRN #16 tab 01/14/20 [Rx] Azithromycin [Zithromax] 500 mg PO DAILY #4 tab 02/11/20 [Rx] Past Medical History HEENT History: Reports: Impaired Vision, Macular Degeneration Other HEENT History: Wears glasses. Cardiovascular History: Reports: Heart Failure Respiratory History: Reports: COPD (She is O2 dependent.) Other Respiratory History: smoker for 60 years. 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 Cardiovascular Surgical History: Reports: Other (See Below) Other Cardiovascular Surgeries/Procedures: Vein stripping procedure 2. GI Surgical History: Reports: Appendectomy, Bariatric Procedure, Cholecystectomy, Colon, Hernia Repair/Other, Other (See Below) Other GI Surgeries/Procedures: Bowel obstruction. Female Surgical History: Reports: Hysterectomy Social & Family History - Family History Family Medical History: Noncontributory - Caffeine Use Caffeine Use: Reports: Coffee Other Caffeine Use: diet pop. - Living Situation & Occupation Occupation: Retired ED ROS GENERAL - Review of Systems Review Of Systems: See Below Constitutional: Reports: No Symptoms HEENT: Reports: No Symptoms Respiratory: Reports: Shortness of Breath Cardiovascular: Reports: Chest Pain Endocrine: Reports: No Symptoms GI/Abdominal: Reports: No Symptoms : Reports: No Symptoms Musculoskeletal: Reports: No Symptoms Skin: Reports: No Symptoms Neurological: Reports: No Symptoms Psychiatric: Reports: No Symptoms ED EXAM, GENERAL - Physical Exam Exam: See Below Exam Limited By: No Limitations General Appearance: Alert, No Apparent Distress Back Exam: Normal Inspection, Full Range of Motion Extremities: Normal Inspection, Normal Range of Motion, Non-Tender Neurological: Alert, Oriented, CN II-XII Intact, Normal Cognition, Normal Gait Psychiatric: Normal Affect, Normal Mood Skin Exam: Warm, Intact, Normal Color Course - Vital Signs Last Recorded V/S: Labs/EKG/CXR result was discussed with patient and her daughter She is dehydrated due to over diuresis NS 500 ml in 1 hour - Orders/Labs/Meds Orders: Active Orders 24 hr Category Date Time Status EKG Documentation Completion [RC] ASDIRECTED Care 02/12/20 19:53 Active Chest 1V Frontal [CR] Stat Exams 02/12/20 19:52 Taken Sodium Chloride 0.9% [Normal Saline] 500 ml Med 02/12/20 20:26 Active IV .BOLUS Sodium Chloride 0.9% [Saline Flush] Med 02/12/20 19:51 Active 10 ml FLUSH ASDIRECTED PRN Saline Lock Insert [OM.PC] Routine Oth 02/12/20 19:51 Ordered EKG 12 Lead [EK] Routine Ther 02/12/20 19:52 Ordered Medication Orders Sodium Chloride (Normal Saline) 500 mls @ 500 mls/hr IV .BOLUS ONE Stop: 02/12/20 21:25 Last Admin: 02/12/20 20:33 Dose: 500 mls/hr Documented by: KENDRICK Sodium Chloride (Saline Flush) 10 ml FLUSH ASDIRECTED PRN PRN Reason: Keep Vein Open Last Admin: 02/12/20 20:33 Dose: 10 ml Documented by: Labs: Laboratory Tests 02/12/20 02/12/20 02/12/20 Range/Units 20:11 20:11 20:11 WBC 10.5 (4.5-12.0) X10-3/uL RBC 3.79 (3.23-5.20) x10(6)uL Hgb 12.4 (11.5-15.5) g/dL Hct 36.8 (30.0-51.3) % MCV 97.0 H (80-96) fL MCH 32.8 (27.7-33.6) pg MCHC 33.8 (32.2-35.4) g/dL RDW 14.8 (11.5-15.5) % Plt Count 317 (125-369) X10(3)uL MPV 7.5 (7.4-10.4) fL Neut % (Auto) 73.2 (46-82) % Lymph % (Auto) 11.6 L (13-37) % [place] % (Auto) 10.9 (4-12) % Eos % (Auto) 1 (1.0-5.0) % Baso % (Auto) 3 H (0-2) % Neut # (Auto) 7.8 (1.6-8.3) # Lymph # (Auto) 1.2 (0.6-5.0) # [place] # (Auto) 1.1 (0.0-1.3) # Eos # (Auto) 0.1 (0.0-0.8) # Baso # (Auto) 0.3 H (0.0-0.2) # Sodium 136 (135-145) mmol/L Potassium 4.1 (3.5-5.3) mmol/L Chloride 93 L (100-110) mmol/L Carbon Dioxide 44 H* (21-32) mmol/L BUN 28 H (7-18) mg/dL Creatinine 1.0 (0.55-1.02) mg/dL Est Cr Clr Drug Dosing TNP Estimated GFR (MDRD) 54 L (>60) BUN/Creatinine Ratio 28.0 H (9-20) Glucose 107 (80-116) mg/dL Calcium 8.9 (8.6-10.2) mg/dL Total Bilirubin 0.3 (0.1-1.3) mg/dL AST 21 D (5-25) IU/L ALT 25 D (12-36) U/L Alkaline Phosphatase 104 (56-112) IU/L Troponin I 10.1 (4.0-60.3) pg/mL NT-Pro-B Natriuret Pep 609 H (<=450) pg/mL Total Protein 5.9 L (6.0-8.0) g/dL Albumin 3.1 L (3.2-4.6) g/dL Globulin 2.8 g/dL Albumin/Globulin Ratio 1.1 Meds: Medications Generic Name Dose Route Start Last Admin Trade Name Eder PRN Reason Stop Dose Admin Sodium Chloride 500 mls @ 500 mls/hr 02/12/20 20:26 02/12/20 20:33 Normal Saline IV 02/12/20 21:25 500 mls/hr .BOLUS ONE Administration Sodium Chloride 10 ml 02/12/20 19:51 02/12/20 20:33 Saline Flush FLUSH 10 ml ASDIRECTED PRN Administration Keep Vein Open Discontinued Medications Generic Name Dose Route Start Last Admin Trade Name Eder PRN Reason Stop Dose Admin Aspirin 324 mg 02/12/20 19:53 02/12/20 20:33 Aspirin PO 02/12/20 19:54 324 mg ONETIME ONE Administration Departure - Departure Time of Disposition: 21:30 Disposition: Home, Self-Care 01 Condition: Good Clinical Impression: Dehydration, Hypotension - Discharge Information Instructions: Hypotension, [id number], Dehydration, Adult, [id number] Referrals: Belen Elaine WARP PICKER [Primary Care Provider] - Forms: ED Department Discharge Additional Instructions: please read discharge instructions on dehydration and low blood pressure you need to drink 1 L of water a day because you are taking a water pill(lasix/furosemide) follow up as scheduled - My Orders Last 24 Hours: My Active Orders 02/12/20 19:51 Sodium Chloride 0.9% [Saline Flush] 10 ml FLUSH ASDIRECTED PRN Saline Lock Insert [OM.PC] Routine 02/12/20 19:52 Chest 1V Frontal [CR] Stat EKG 12 Lead [EK] Routine 02/12/20 19:53 EKG Documentation Completion [RC] ASDIRECTED 02/12/20 20:26 Sodium Chloride 0.9% [Normal Saline] 500 ml IV .BOLUS - Assessment/Plan Last 24 Hours: My Active Orders 02/12/20 19:51 Sodium Chloride 0.9% [Saline Flush] 10 ml FLUSH ASDIRECTED PRN Saline Lock Insert [OM.PC] Routine 02/12/20 19:52 Chest 1V Frontal [CR] Stat EKG 12 Lead [EK] Routine 02/12/20 19:53 EKG Documentation Completion [RC] ASDIRECTED 02/12/20 20:26 Sodium Chloride 0.9% [Normal Saline] 500 ml IV .BOLUS
[2020-02-12 21:11] VITALS: BP 93/47; PULSE 79
== END 2020-02-12 21:50 | disposition home or self-care (01) ==
LOC: FB.ED 19:40
DX: I95.9 Hypotension, unspecified (principal); E86.0 Dehydration; I50.9 Heart failure, unspecified; J44.9 Chronic obstructive pulmonary disease, unspecified; F41.9 Anxiety disorder, unspecified; F32.9 Major depressive disorder, single episode, unspecified; Z88.0 Allergy status to penicillin; Z91.040 Latex allergy status; Z90.49 Acquired absence of other specified parts of digestive tract; Z90.710 Acquired absence of both cervix and uterus; Z79.82 Long term (current) use of aspirin; Z79.899 Other long term (current) drug therapy
CPT/HCPCS: 36415; 71045; 80053; 83880; 84484; 85025; 93005; 99285; A9270; J7040

== ENCOUNTER 2020-05-09 10:22 | Emergency (ER) | payer MEDICARE ==
[2020-05-09] MEDS ORDERED: Albuterol/Ipratropium 3.0-0.5 MG/3 ML Neb Soln NEB STA (10:50)
[2020-05-09] MEDS ORDERED: methylPREDNISolone Sodium Succinate 125 MG/2 ML SDV IVPUSH STA ×2 (10:50→11:15)
--- NOTE | 2020-05-09 11:50 | EDM.PDOC ---
ED HPI GENERAL MEDICAL PROBLEM - General Chief Complaint: Respiratory Problem Stated Complaint: SOB Time Seen by Provider: 05/09/20 10:40 Source of Information: Reports: Patient History Limitations: Reports: No Limitations - History of Present Illness INITIAL COMMENTS - FREE TEXT/NARRATIVE: Patient presented to the ED because of dyspnea, weakness, for 1 week which got worse 4 days ago. There is no chest pain, N/V/D. No fever/chills, cough or cold. She has a history of COPD, CHF and is on home oxygen, neb treatment-pulmicort, duoneb, albuterol. 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 - Related Data Allergies Allergy/AdvReac Type Severity Reaction Status Date / Time Penicillins Allergy Severe Hives Verified 05/09/20 10:54 latex Allergy Rash Verified 05/09/20 10:54 Home Meds: Home Meds Lutein/Minerals/Vit A,C & E [Ocuvite] 1 tab PO DAILY 12/05/12 [History] Multivitamins 1 each PO DAILY 12/05/12 [History] Zinc Gluconate [Zinc] 1 tab PO DAILY 12/05/12 [History] Furosemide [Lasix] 40 mg PO DAILY 11/02/16 [History] Cyanocobalamin (Vitamin B12) [Vitamin B12] 1,000 mcg PO DAILY 06/20/17 [History] Budesonide [Pulmicort] 0.5 mg INH BID 08/15/17 [History] Acetaminophen/Diphenhydramine [Tylenol Pm Ex-Strength Caplet] 1 each PO BEDTIME 09/26/17 [History] Albuterol [Ventolin HFA] 2 puff INH Q6H PRN 09/26/17 [History] Potassium Chloride 10 meq PO DAILY 09/26/17 [History] Albuterol/Ipratropium [DuoNeb 3.0-0.5 MG/3 ML] 3 ml NEB Q4H PRN 10/21/18 [History] polyethylene glycoL 3350 [MiraLAX] 17 gm PO DAILY PRN packet 04/19/19 [Rx] Calcium Carbonate/Vitamin D3 [Calcium 600 + Vit D 200] 2 tab PO DAILY 04/28/19 [History] PEG 400/Propylene Glycol [Systane Lubricant Gel] 1 drop EYEBOTH QID PRN 04/28/19 [History] Tiotropium [place] [Spiriva Respimat] 1 puff INH DAILY 04/28/19 [History] Citalopram [Citalopram HBr] 20 mg PO DAILY #30 tab 04/29/19 [Rx] Losartan [Cozaar] 25 mg PO DAILY 05/09/20 [History] Roflumilast [Daliresp] 250 mcg DAILY 05/09/20 [History] Warfarin Sodium [Jantoven] 5 mg PO WEFR 05/09/20 [History] Warfarin Sodium [Jantoven] 7.5 mg PO SUMOTUTHSA 05/09/20 [History] cephALEXin [Cephalexin] 250 mg BID 05/09/20 [History] predniSONE [Prednisone] 20 mg PO DAILY #5 tablet 05/09/20 [Rx] Past Medical History HEENT History: Reports: Impaired Vision, Macular Degeneration Other HEENT History: Wears glasses. Cardiovascular History: Reports: Heart Failure Respiratory History: Reports: COPD (She is O2 dependent.) Other Respiratory History: smoker for 60 years. Gastrointestinal History: Reports: Bowel Obstruction BONDING AGENT History: Reports: Other BONDING AGENT History: Musculoskeletal History: Reports: Back Pain, Chronic Neurological History: Reports: None Psychiatric History: Reports: Anxiety, Depression Endocrine/Metabolic History: Reports: None Oncologic (Cancer) History: Reports: Uterine - Infectious Disease History Infectious Disease History: Reports: Measles - Past Surgical History HEENT Surgical History: Reports: Cataract Surgery, Other (See Below) Other HEENT Surgeries/Procedures: Cornea transplant. Cardiovascular Surgical History: Reports: Other (See Below) Other Cardiovascular Surgeries/Procedures: Vein stripping procedure 2. GI Surgical History: Reports: Appendectomy, Bariatric Procedure, Cholecystectomy, Colon, Hernia Repair/Other, Other (See Below) Other GI Surgeries/Procedures: Bowel obstruction. Female Surgical History: Reports: Hysterectomy Social & Family History - Family History Family Medical History: No Pertinent Family History - Caffeine Use Caffeine Use: Reports: Coffee Other Caffeine Use: diet pop. - Living Situation & Occupation Occupation: Retired ED ROS GENERAL - Review of Systems Review Of Systems: See Below Constitutional: Reports: No Symptoms, Weakness HEENT: Reports: No Symptoms Respiratory: Reports: Shortness of Breath, Wheezing Cardiovascular: Reports: No Symptoms Endocrine: Reports: No Symptoms GI/Abdominal: Reports: No Symptoms : Reports: No Symptoms Musculoskeletal: Reports: No Symptoms Skin: Reports: No Symptoms Neurological: Reports: No Symptoms ED EXAM, GENERAL - Physical Exam Exam: See Below Exam Limited By: No Limitations General Appearance: Alert, No Apparent Distress Eye Exam: Bilateral Eye: PERRL Ears: Normal External Exam, Normal Canal Nose: Normal Inspection, Normal Mucosa, No Blood Throat/Mouth: Normal Inspection, Normal Lips, Normal Teeth Head: Atraumatic, Normocephalic Neck: Normal Inspection, Supple, Non-Tender, Full Range of Motion Respiratory/Chest: No Respiratory Distress, Decreased Breath Sounds, Wheezing Cardiovascular: Normal Peripheral Pulses, Regular Rate, Rhythm, No Edema, No Gallop, No JVD, No Murmur GI/Abdominal: Normal Bowel Sounds, Soft, Non-Tender, No Organomegaly Back Exam: Normal Inspection, Full Range of Motion Extremities: Normal Inspection, Normal Range of Motion, Non-Tender Neurological: Alert, Oriented, CN II-XII Intact, Normal Cognition, Normal Gait, Normal Reflexes, No Motor/Sensory Deficits Psychiatric: Normal Affect Skin Exam: Warm, Dry, Normal Color Course - Vital Signs Text/Narrative:: Labs/EKG/CXR was discussed with patien and verbalized full understanding CXR-see result EKG-NSR Trop-neg Duoneb x1 Solumedrol 125 mg IM x1 Last Recorded V/S: Last Vital Signs Temp 36.3 C 05/09/20 10:25 Pulse 69 05/09/20 10:25 Resp 22 H 05/09/20 10:25 BP 119/73 05/09/20 10:25 Pulse Ox 96 05/09/20 10:25 - Orders/Labs/Meds Orders: Active Orders 24 hr Category Date Time Status EKG Documentation Completion [RC] ASDIRECTED Care 05/09/20 10:49 Active RT Aerosol Therapy [RC] ASDIRECTED Care 05/09/20 10:51 Active Chest 1V Frontal [CR] Stat Exams 05/09/20 10:48 Taken CULTURE URINE [RM] Stat Lab 05/09/20 11:52 Ordered EKG 12 Lead [EK] Routine Ther 05/09/20 10:48 Ordered Labs: Laboratory Tests 05/09/20 05/09/20 05/09/20 Range/Units 10:40 10:40 10:40 WBC 4.9 (3.0-10.3) x10-3/uL RBC 4.12 (3.60-5.20) x10(6)uL Hgb 12.9 (11.4-15.5) g/dL Hct 40.2 (34.2-48.2) % MCV 97.7 (76.7-100.5) fL MCH 31.2 (23.9-33.9) pg MCHC 32.0 (31.9-34.8) g/dL RDW 14.0 (12.3-16.5) % Plt Count 235 (151-488) x10(3)uL MPV 8.5 (7.1-12.4) fL Neut % (Auto) 66.2 (30.8-76.2) % Lymph % (Auto) 16.6 L (18.4-52.1) % Cobb % (Auto) 9.8 (4.4-15.7) % Eos % (Auto) 6.5 (0.6-8.1) % Baso % (Auto) 0.9 (0.2-1.5) % Neut # (Auto) 3.3 (1.5-6.3) x10-3/uL Lymph # (Auto) 0.8 L (1.0-4.4) x10-3/uL Cobb # (Auto) 0.5 (0.3-1.0) x10-3/uL Eos # (Auto) 0.3 (0.0-0.8) x10-3/uL Baso # (Auto) 0.0 (0.0-0.1) x10-3/uL Sodium 135 (135-145) mmol/L Potassium 4.2 (3.5-5.3) mmol/L Chloride 95 L (100-110) mmol/L Carbon Dioxide 42 H* (21-32) mmol/L BUN 19 H (7-18) mg/dL Creatinine 0.7 (0.55-1.02) mg/dL Est Cr Clr Drug Dosing TNP Estimated GFR (MDRD) > 60 (>60) BUN/Creatinine Ratio 27.1 H (9-20) Glucose 97 (80-116) mg/dL Calcium 8.7 (8.6-10.2) mg/dL Total Bilirubin 0.5 (0.1-1.3) mg/dL AST 24 D (5-25) IU/L ALT 22 D (12-36) U/L Alkaline Phosphatase 82 (56-112) IU/L Troponin I 9.5 (4.0-60.3) pg/mL NT-Pro-B Natriuret Pep 316 (<=450) pg/mL Total Protein 6.1 (6.0-8.0) g/dL Albumin 3.5 (3.2-4.6) g/dL Globulin 2.6 g/dL Albumin/Globulin Ratio 1.4 Urine Color (YELLOW) Urine Appearance (CLEAR) Urine pH (5.0-6.5) Ur Specific [place] (1.010-1.025) Urine Protein (NEGATIVE) mg/dL Urine Glucose (UA) (NORMAL) mg/dL Urine Ketones (NEGATIVE) mg/dL Urine Occult Blood (NEGATIVE) Urine Nitrite (NEGATIVE) Urine Bilirubin (NEGATIVE) Urine Urobilinogen (NEGATIVE) mg/dL Ur Leukocyte Esterase (NEGATIVE) Urine WBC (0-5) Ur Squamous Epith Cells (NS,R,O) Amorphous Sediment Urine Bacteria (NS) SARS-CoV-2 RNA (GARTH) (NEGATIVE) 05/09/20 05/09/20 Range/Units 10:45 11:00 WBC (3.0-10.3) x10-3/uL RBC (3.60-5.20) x10(6)uL Hgb (11.4-15.5) g/dL Hct (34.2-48.2) % MCV (76.7-100.5) fL MCH (23.9-33.9) pg MCHC (31.9-34.8) g/dL RDW (12.3-16.5) % Plt Count (151-488) x10(3)uL MPV (7.1-12.4) fL Neut % (Auto) (30.8-76.2) % Lymph % (Auto) (18.4-52.1) % Cobb % (Auto) (4.4-15.7) % Eos % (Auto) (0.6-8.1) % Baso % (Auto) (0.2-1.5) % Neut # (Auto) (1.5-6.3) x10-3/uL Lymph # (Auto) (1.0-4.4) x10-3/uL Cobb # (Auto) (0.3-1.0) x10-3/uL Eos # (Auto) (0.0-0.8) x10-3/uL Baso # (Auto) (0.0-0.1) x10-3/uL Sodium (135-145) mmol/L Potassium (3.5-5.3) mmol/L Chloride (100-110) mmol/L Carbon Dioxide (21-32) mmol/L BUN (7-18) mg/dL Creatinine (0.55-1.02) mg/dL Est Cr Clr Drug Dosing Estimated GFR (MDRD) (>60) BUN/Creatinine Ratio (9-20) Glucose (80-116) mg/dL Calcium (8.6-10.2) mg/dL Total Bilirubin (0.1-1.3) mg/dL AST (5-25) IU/L ALT (12-36) U/L Alkaline Phosphatase (56-112) IU/L Troponin I (4.0-60.3) pg/mL NT-Pro-B Natriuret Pep (<=450) pg/mL Total Protein (6.0-8.0) g/dL Albumin (3.2-4.6) g/dL Globulin g/dL Albumin/Globulin Ratio Urine Color Yellow (YELLOW) Urine Appearance Slightly cloudy (CLEAR) Urine pH 7.0 H (5.0-6.5) Ur Specific [place] 1.010 (1.010-1.025) Urine Protein Negative (NEGATIVE) mg/dL Urine Glucose (UA) Normal (NORMAL) mg/dL Urine Ketones Negative (NEGATIVE) mg/dL Urine Occult Blood Negative (NEGATIVE) Urine Nitrite Negative (NEGATIVE) Urine Bilirubin Negative (NEGATIVE) Urine Urobilinogen Normal (NEGATIVE) mg/dL Ur Leukocyte Esterase Small H (NEGATIVE) Urine WBC 5-10 H (0-5) Ur Squamous Epith Cells Few H (NS,R,O) Amorphous Sediment Few Urine Bacteria Moderate H (NS) SARS-CoV-2 RNA (GARTH) Negative (NEGATIVE) Meds: Medications Discontinued Medications Generic Name Dose Route Start Last Admin Trade Name Freq PRN Reason Stop Dose Admin Albuterol/Ipratropium 3 ml 05/09/20 10:50 05/09/20 11:13 Duoneb 3.0-0.5 Mg/3 Ml NEB 05/09/20 10:51 3 ml NOW STA Administration Methylprednisolone Sodium Succinate 125 mg 05/09/20 10:50 Solu-Medrol IVPUSH 05/09/20 10:51 NOW STA Methylprednisolone Sodium Succinate 125 mg 05/09/20 11:15 Solu-Medrol IVPUSH 05/09/20 11:16 NOW STA Departure - Departure Time of Disposition: 11:50 Disposition: Home, Self-Care 01 Condition: Good Clinical Impression: UTI (urinary tract infection), COPD exacerbation - Discharge Information Prescriptions: predniSONE [Prednisone] 20 mg PO DAILY #5 tablet Instructions: Chronic Obstructive Pulmonary Disease Exacerbation, [id number], Urinary Tract Infection, Adult, [id number] Referrals: Belen Elaine CELERY STRIPPER [Primary Care Provider] - Forms: ED Department Discharge Additional Instructions: Please read discharge instruction on UTI and COPD exacerbation Take your keflex until gone Prednisone 20 mg daily starting today Pulmicort neb twice daily Duoneb every 6 hours for 3 days then as needed Albuterol neb ever 1-2 hours as needed for shortness of breath Follow up as needed Sepsis Event Note (ED) - Evaluation Sepsis Screening Result: Possible Sepsis Risk - Focused Exam Vital Signs: Vital Signs Temp Pulse Resp BP Pulse Ox 05/09/20 10:25 36.3 C 69 22 H 119/73 96 - My Orders Last 24 Hours: My Active Orders 05/09/20 10:48 Chest 1V Frontal [CR] Stat EKG 12 Lead [EK] Routine 05/09/20 10:49 EKG Documentation Completion [RC] ASDIRECTED 05/09/20 10:51 RT Aerosol Therapy [RC] ASDIRECTED 05/09/20 11:52 CULTURE URINE [RM] Stat - Assessment/Plan Last 24 Hours: My Active Orders 05/09/20 10:48 Chest 1V Frontal [CR] Stat EKG 12 Lead [EK] Routine 05/09/20 10:49 EKG Documentation Completion [RC] ASDIRECTED 05/09/20 10:51 RT Aerosol Therapy [RC] ASDIRECTED 05/09/20 11:52 CULTURE URINE [RM] Stat
[2020-05-09] MEDS ORDERED: methylPREDNISolone Sodium Succinate 125 MG/2 ML SDV IM ONE (11:57)
[2020-05-09 12:13] VITALS: BP 126/87; PULSE 71
--- NOTE | 2020-05-09 12:14 | CR ---
INDICATION: Dyspnea. CHEST ONE VIEW: Portable AP upright view of the chest 05/09/20 was compared with 02/12/20 and 02/11/20. Findings remain compatible with COPD and ASHD with the heart at the upper limits of normal in size and the aorta slightly tortuous with calcification in the arch and descending portion. Markings appear somewhat heavy in the lung bases and in the upper lung mckeon pulmonary vasculature is prominent raising question of mild or early CHF with interstitial lung edema and/or interstitial fibrosis. Unusual pneumonia could also be present. However, no consolidating pneumonia, or effusion was identified. Mild dextroconvex scoliosis of the thoracic spine is noted with an appearance of demineralization raising question of osteoporosis - correlate clinically. IMPRESSION: 1. ASHD with heart at the upper limits of normal in size or minimally enlarged associated with prominent pulmonary vasculature and interstitial markings which may represent a mild or early CHF and interstitial lung edema, although fibrosis or even interstitial infection cannot be excluded. 2. COPD. 3. Osteoporosis and scoliosis. MTDD
== END 2020-05-09 11:16 | disposition home or self-care (01) ==
LOC: FB.ED 10:22
DX: J44.1 Chronic obstructive pulmonary disease with (acute) exacerbation (principal); N39.0 Urinary tract infection, site not specified; I50.9 Heart failure, unspecified; Z88.0 Allergy status to penicillin; Z91.040 Latex allergy status; Z79.899 Other long term (current) drug therapy; Z20.822 Contact with and (suspected) exposure to COVID-19
CPT/HCPCS: 36415; 71045; 80053; 81001; 83880; 84484; 85025; 87086; 87088; 93005; 94640; 96372; 99285; J2930; U0002; 87186; 99284; J7620-GY

== ENCOUNTER 2020-06-14 15:01 | Emergency (ER) | payer MEDICARE ==
[2020-06-14] MEDS ORDERED: methylPREDNISolone Sodium Succinate 125 MG/2 ML SDV IVPUSH ONE (15:19)
[2020-06-14] MEDS ORDERED: Furosemide 40 MG/4 ML VIAL IVPUSH ONE (15:20)
[2020-06-14] MEDS ORDERED: Albuterol/Ipratropium 3.0-0.5 MG/3 ML Neb Soln NEB ONE (15:20)
--- NOTE | 2020-06-14 15:33 | EDM.PDOC ---
ED HPI GENERAL MEDICAL PROBLEM - General Chief Complaint: General Stated Complaint: SOB Time Seen by Provider: 06/14/20 15:15 Source of Information: Reports: Patient History Limitations: Reports: No Limitations - History of Present Illness INITIAL COMMENTS - FREE TEXT/NARRATIVE: pt states she has bee getting progressively sob since thursday got worse yesterday this am noted leg swelling with cough getting worse has taken budesonide 2 doses , albuterol neb, still she feels more SOB states she had same symptoms about one month ago and was given an injection and she felt better states she tested for COVID yesterday , has not taken vaccine yet Onset: Gradual Onset Date: 06/11/20 Duration: Day(s):, Getting Worse Location: Reports: Chest Quality: Reports: Same as Previous Episode Severity: Moderate Improves with: Reports: Medication Worsens with: Reports: Movement Context: Reports: Activity Associated Symptoms: Reports: Cough, Malaise, Weakness (states it is difficult for her to walk to the bathroom as she is very weak) 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 Treatments (states no improvement) - Related Data Allergies Allergy/AdvReac Type Severity Reaction Status Date / Time Penicillins Allergy Severe Hives Verified 06/14/20 18:09 latex Allergy Rash Verified 06/14/20 18:09 Home Meds: Home Meds Lutein/Minerals/Vit A,C & E [Ocuvite] 1 tab PO DAILY 12/05/12 [History] Multivitamins 1 each PO DAILY 12/05/12 [History] Zinc Gluconate [Zinc] 1 tab PO DAILY 12/05/12 [History] Furosemide [Lasix] 20 mg PO BID 11/02/16 [History] Cyanocobalamin (Vitamin B12) [Vitamin B12] 1,000 mcg PO DAILY 06/20/17 [History] Budesonide [Pulmicort] 0.5 mg INH BID 08/15/17 [History] Acetaminophen/Diphenhydramine [Tylenol Pm Ex-Strength Caplet] 1 each PO BEDTIME 09/26/17 [History] Albuterol [Ventolin HFA] 2 puff INH Q6H PRN 09/26/17 [History] Potassium Chloride 10 meq PO DAILY 09/26/17 [History] Albuterol/Ipratropium [DuoNeb 3.0-0.5 MG/3 ML] 3 ml NEB Q4H PRN 10/21/18 [History] polyethylene glycoL 3350 [MiraLAX] 17 gm PO DAILY PRN packet 04/19/19 [Rx] Calcium Carbonate/Vitamin D3 [Calcium 600 + Vit D 200] 2 tab PO DAILY 04/28/19 [History] PEG 400/Propylene Glycol [Systane Lubricant Gel] 1 drop EYEBOTH QID PRN 04/28/19 [History] Tiotropium [place] [Spiriva Respimat] 1 puff INH DAILY 04/28/19 [History] Citalopram [Citalopram HBr] 20 mg PO DAILY #30 tab 04/29/19 [Rx] Losartan [Cozaar] 25 mg PO DAILY 05/09/20 [History] Roflumilast [Daliresp] 250 mcg DAILY 05/09/20 [History] Warfarin Sodium [Jantoven] 5 mg PO WEFR 05/09/20 [History] Warfarin Sodium [Jantoven] 7.5 mg PO SUMOTUTHSA 05/09/20 [History] predniSONE [Prednisone] 20 mg PO DAILY #5 tablet 05/09/20 [Rx] Furosemide [Lasix] 40 mg PO DAILY #3 tablet 06/14/20 [Rx] Nitrofurantoin Monohyd/M-Cryst [Macrobid 100 mg Capsule] 100 mg PO BID #14 capsule 06/14/20 [Rx] Past Medical History HEENT History: Reports: Impaired Vision, Macular Degeneration Other HEENT History: Wears glasses. 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 SALES CONSULTANT History: Reports: Other B2B SALES CONSULTANT History: Musculoskeletal History: Reports: Arthritis, Back Pain, Chronic, Fracture, Osteoporosis Other Musculoskeletal History: hx fx sternum, fx ribs, Neurological History: Reports: None Psychiatric History: Reports: Anxiety, Depression Endocrine/Metabolic History: Reports: None Hematologic History: Reports: Anticoagulation Therapy Oncologic (Cancer) History: Reports: Cervix - Infectious Disease History Infectious Disease History: Reports: Measles - Past Surgical History HEENT Surgical History: Reports: Cataract Surgery, Other (See Below) Other HEENT Surgeries/Procedures: Cornea transplant. Cardiovascular Surgical History: Reports: Other (See Below) Other Cardiovascular Surgeries/Procedures: Vein stripping procedure 2. GI Surgical History: Reports: Appendectomy, Bariatric Procedure, Cholecystectomy, Colon, Hernia Repair/Other, Other (See Below) Other GI Surgeries/Procedures: Bowel obstruction. Female Surgical History: Reports: Hysterectomy Social & Family History - Family History Family Medical History: No Pertinent Family History - Caffeine Use Caffeine Use: Reports: Coffee Other Caffeine Use: diet pop. - Living Situation & Occupation Occupation: Retired ED ROS GENERAL - Review of Systems Review Of Systems: Comprehensive ROS is negative, except as noted in HPI. ED EXAM, GENERAL - Physical Exam Exam: See Below Exam Limited By: No Limitations General Appearance: Alert, WD/WN, No Apparent Distress, Mild Distress Eye Exam: Bilateral Eye: EOMI Ears: Normal External Exam Ear Exam: Bilateral Ear: TM Dull Nose: Normal Inspection Throat/Mouth: Normal Oropharynx Head: Atraumatic, Normocephalic Neck: Supple, Non-Tender Respiratory/Chest: No Respiratory Distress, Lungs Clear Cardiovascular: Regular Rate, Rhythm Peripheral Pulses: 2+: Dorsalis Pedis (L), Dorsalis Pedis (R) GI/Abdominal: Soft, Non-Tender Back Exam: Normal Inspection, Full Range of Motion Extremities: Normal Inspection, Normal Range of Motion Neurological: Alert, Oriented, CN II-XII Intact Psychiatric: Normal Affect Skin Exam: Warm Course - Vital Signs Last Recorded V/S: Last Vital Signs Temp 36.7 C 06/14/20 18:30 Pulse 78 06/14/20 18:30 Resp 18 06/14/20 18:30 BP 132/74 06/14/20 18:30 Pulse Ox 96 06/14/20 18:30 - Orders/Labs/Meds Orders: Active Orders 24 hr Category Date Time Status CULTURE URINE [RM] Stat Lab 06/14/20 15:10 Received Labs: Laboratory Tests 06/14/20 06/14/20 06/14/20 Range/Units 16:50 16:50 16:50 WBC 5.4 (3.0-10.3) x10-3/uL RBC 4.37 (3.60-5.20) x10(6)uL Hgb 13.7 (11.4-15.5) g/dL Hct 41.8 (34.2-48.2) % MCV 95.7 (76.7-100.5) fL MCH 31.3 (23.9-33.9) pg MCHC 32.8 (31.9-34.8) g/dL RDW 14.1 (12.3-16.5) % Plt Count 288 (151-488) x10(3)uL PT (9.0-11.1) sec INR (1.00-1.24) Sodium 136 (135-145) mmol/L Potassium 3.8 (3.5-5.3) mmol/L Chloride 93 L (100-110) mmol/L Carbon Dioxide 41 H* (21-32) mmol/L BUN 16 (7-18) mg/dL Creatinine 0.8 (0.55-1.02) mg/dL Est Cr Clr Drug Dosing TNP Estimated GFR (MDRD) > 60 (>60) BUN/Creatinine Ratio 20.0 (9-20) Glucose 121 H (80-116) mg/dL Calcium 8.7 (8.6-10.2) mg/dL Magnesium 2.1 (1.8-2.5) mg/dL Total Bilirubin 0.6 (0.1-1.3) mg/dL AST 27 H D (5-25) IU/L ALT 32 D (12-36) U/L Alkaline Phosphatase 94 (56-112) IU/L NT-Pro-B Natriuret Pep 511 H (<=450) pg/mL Total Protein 6.7 (6.0-8.0) g/dL Albumin 3.8 (3.2-4.6) g/dL Globulin 2.9 g/dL Albumin/Globulin Ratio 1.3 Urine Color (YELLOW) Urine Appearance (CLEAR) Urine pH (5.0-6.5) Ur Specific [place] (1.010-1.025) Urine Protein (NEGATIVE) mg/dL Urine Glucose (UA) (NORMAL) mg/dL Urine Ketones (NEGATIVE) mg/dL Urine Occult Blood (NEGATIVE) Urine Nitrite (NEGATIVE) Urine Bilirubin (NEGATIVE) Urine Urobilinogen (NEGATIVE) mg/dL Ur Leukocyte Esterase (NEGATIVE) Urine RBC (0-5) Urine WBC (0-5) Ur Squamous Epith Cells (NS,R,O) Amorphous Sediment Urine Bacteria (NS) 06/14/20 06/14/20 Range/Units 16:50 17:00 WBC (3.0-10.3) x10-3/uL RBC (3.60-5.20) x10(6)uL Hgb (11.4-15.5) g/dL Hct (34.2-48.2) % MCV (76.7-100.5) fL MCH (23.9-33.9) pg MCHC (31.9-34.8) g/dL RDW (12.3-16.5) % Plt Count (151-488) x10(3)uL PT 29.2 H (9.0-11.1) sec INR 2.89 H (1.00-1.24) Sodium (135-145) mmol/L Potassium (3.5-5.3) mmol/L Chloride (100-110) mmol/L Carbon Dioxide (21-32) mmol/L BUN (7-18) mg/dL Creatinine (0.55-1.02) mg/dL Est Cr Clr Drug Dosing Estimated GFR (MDRD) (>60) BUN/Creatinine Ratio (9-20) Glucose (80-116) mg/dL Calcium (8.6-10.2) mg/dL Magnesium (1.8-2.5) mg/dL Total Bilirubin (0.1-1.3) mg/dL AST (5-25) IU/L ALT (12-36) U/L Alkaline Phosphatase (56-112) IU/L NT-Pro-B Natriuret Pep (<=450) pg/mL Total Protein (6.0-8.0) g/dL Albumin (3.2-4.6) g/dL Globulin g/dL Albumin/Globulin Ratio Urine Color Yellow (YELLOW) Urine Appearance Cloudy (CLEAR) Urine pH 9.0 H (5.0-6.5) Ur Specific [place] 1.015 (1.010-1.025) Urine Protein Negative (NEGATIVE) mg/dL Urine Glucose (UA) Normal (NORMAL) mg/dL Urine Ketones Negative (NEGATIVE) mg/dL Urine Occult Blood Moderate H (NEGATIVE) Urine Nitrite Negative (NEGATIVE) Urine Bilirubin Negative (NEGATIVE) Urine Urobilinogen Normal (NEGATIVE) mg/dL Ur Leukocyte Esterase Large H (NEGATIVE) Urine RBC 0-5 (0-5) Urine WBC 10-20 H (0-5) Ur Squamous Epith Cells Few H (NS,R,O) Amorphous Sediment Moderate Urine Bacteria Few H (NS) Meds: Medications Discontinued Medications Generic Name Dose Route Start Last Admin Trade Name Eder PRN Reason Stop Dose Admin Albuterol/Ipratropium 3 ml 06/14/20 15:20 06/14/20 15:34 Albuterol/Ipratropium 3.0-0.5 Mg/3 Ml Neb Soln NEB 06/14/20 15:21 3 ml ONETIME ONE Administration Furosemide 40 mg 06/14/20 15:20 06/14/20 15:34 Furosemide 40 Mg/4 Ml Vial IVPUSH 06/14/20 15:21 40 mg NOW ONE Administration Methylprednisolone Sodium Succinate 125 mg 06/14/20 15:19 06/14/20 15:34 Methylprednisolone Sodium Succinate 125 Mg/2 Ml Sdv IVPUSH 06/14/20 15:20 125 mg ONETIME ONE Administration Nitrofurantoin Macrocrystals 100 mg 06/14/20 17:41 06/14/20 17:55 Nitrofurantoin Monohydrate/Macrocrystalline 100 Mg Cap PO 06/14/20 17:42 100 mg ONETIME ONE Administration - Re-Assessments/Exams Free Text/Narrative Re-Assessment/Exam: 06/14/20 16:35 pt had solumedrol , lasix and Duoneb, felt much better breathing but said she still felt weak has no enegry to go to bathroom her daughter checks in on her but is her nursing home physician pt has no home health nurse to check in on her Lives alone and would benefit from PT assessment 06/14/20 16:38 Departure - Departure Time of Disposition: 18:40 Disposition: Home, Self-Care 01 Condition: Fair Clinical Impression: CHF, Congestive heart failure, COPD exacerbation, Chronic anticoagulation, UTI (urinary tract infection) - Discharge Information *PRESCRIPTION DRUG MONITORING PROGRAM REVIEWED*: Not Applicable *COPY OF PRESCRIPTION DRUG MONITORING REPORT IN PATIENT LULU: Not Applicable Prescriptions: Furosemide [Lasix] 40 mg PO DAILY #3 tablet Nitrofurantoin Monohyd/M-Cryst [Macrobid 100 mg Capsule] 100 mg PO BID #14 capsule Instructions: Chronic Obstructive Pulmonary Disease Exacerbation, [id number], Heart Failure Action Plan Referrals: Belen Elaine FRANCHISE SPECIALIST [Primary Care Provider] - Forms: ED Department Discharge - My Orders Last 24 Hours: My Active Orders 06/14/20 15:10 CULTURE URINE [] Stat - Assessment/Plan Last 24 Hours: My Active Orders 06/14/20 15:10 CULTURE URINE [] Stat
[2020-06-14] MEDS ORDERED: Nitrofurantoin Monohydrate/Macrocrystalline 100 MG Cap PO ONE (17:41)
[2020-06-14 19:53] VITALS: BP 132/74; PULSE 78
== END 2020-06-14 18:45 | disposition home or self-care (01) ==
LOC: FB.ED 15:01
DX: I11.0 Hypertensive heart disease with heart failure (principal); I50.9 Heart failure, unspecified; J44.1 Chronic obstructive pulmonary disease with (acute) exacerbation; Z79.01 Long term (current) use of anticoagulants; N39.0 Urinary tract infection, site not specified; Z88.0 Allergy status to penicillin; Z91.040 Latex allergy status; Z79.899 Other long term (current) drug therapy; Z86.718 Personal history of other venous thrombosis and embolism; Z87.891 Personal history of nicotine dependence
CPT/HCPCS: 36415; 80053; 81001; 83735; 83880; 85027; 85610; 87086; 87088; 87186; 94640; 96374; 96375; 99285; A9270; J1940; J2930; J7620-GY

== ENCOUNTER 2020-07-30 23:12 | Emergency (ER) | payer MEDICARE ==
[2020-07-30] MEDS ORDERED: Sodium Chloride 0.9% 10 ML Syringe FLUSH PRN (23:21)
[2020-07-30] MEDS ORDERED: methylPREDNISolone Sodium Succinate 125 MG/2 ML SDV IVPUSH ONE (23:46)
[2020-07-30] MEDS ORDERED: Ketorolac 30 MG/ML SDV IVPUSH ONE (23:47)
[2020-07-30] MEDS ORDERED: Albuterol/Ipratropium 3.0-0.5 MG/3 ML Neb Soln NEB ONE (23:48)
--- NOTE | 2020-07-31 00:26 | EDM.PDOC ---
ED HPI GENERAL MEDICAL PROBLEM - General Chief Complaint: Cardiovascular Problem Stated Complaint: dyspnea/pleuritic pain Time Seen by Provider: 07/30/20 23:20 Source of Information: Reports: Patient History Limitations: Reports: No Limitations - History of Present Illness INITIAL COMMENTS - FREE TEXT/NARRATIVE: Patient presented to the ED because of increasing dyspnea and pleuritic chest pain for 3 days. There is cough,non-productive, no fever chills. she has a history of COPD and is on home oxygen. - Related Data Allergies Allergy/AdvReac Type Severity Reaction Status Date / Time Penicillins Allergy Severe Hives Verified 07/31/20 01:30 latex Allergy Rash Verified 07/31/20 01:30 Home Meds: Home Meds Lutein/Minerals/Vit A,C & E [Ocuvite] 1 tab PO DAILY 12/05/12 [History] Multivitamins 1 each PO DAILY 12/05/12 [History] Zinc Gluconate [Zinc] 1 tab PO DAILY 12/05/12 [History] Cyanocobalamin (Vitamin B12) [Vitamin B12] 1,000 mcg PO DAILY 06/20/17 [History] Budesonide [Pulmicort] 0.5 mg INH BID 08/15/17 [History] Acetaminophen/Diphenhydramine [Tylenol Pm Ex-Strength Caplet] 1 each PO BEDTIME 09/26/17 [History] Albuterol [Ventolin HFA] 2 puff INH Q6H PRN 09/26/17 [History] Calcium Carbonate/Vitamin D3 [Calcium 600 + Vit D 200] 2 tab PO DAILY 04/28/19 [History] PEG 400/Propylene Glycol [Systane Lubricant Gel] 1 drop EYEBOTH QID PRN 04/28/19 [History] Tiotropium [place] [Spiriva Respimat] 1 puff INH DAILY 04/28/19 [History] Citalopram [Citalopram HBr] 20 mg PO DAILY #30 tab 04/29/19 [Rx] Roflumilast [Daliresp] 500 mcg PO DAILY 06/18/20 [History] Albuterol/Ipratropium [DuoNeb 3.0-0.5 MG/3 ML] 3 ml NEB QID PRN 30 Days #1 box 06/25/20 [Rx] Furosemide [Lasix] 10 mg PO DAILY 30 Days #15 tablet 06/25/20 [Rx] Warfarin Sodium [Jantoven] 5 mg PO DAILY 30 Days #30 tab 06/25/20 [Rx] polyethylene glycoL 3350 [MiraLAX] 17 gm PO DAILY 30 Days #1 bottle 06/25/20 [Rx] Azithromycin [Zithromax] 250 mg PO DAILY #6 tablet 07/31/20 [Rx] predniSONE [Prednisone] 20 mg PO DAILY #7 tablet 07/31/20 [Rx] Past Medical History HEENT History: Reports: Impaired Vision, Macular Degeneration Other HEENT History: Wears glasses. 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 Cardiovascular Surgical History: Reports: Other (See Below) Other Cardiovascular Surgeries/Procedures: Vein stripping procedure 2. GI Surgical History: Reports: Appendectomy, Bariatric Procedure, Cholecystectomy, Colon, Hernia Repair/Other, Other (See Below) Other GI Surgeries/Procedures: Bowel obstruction. Female Surgical History: Reports: Hysterectomy Musculoskeletal Surgical History: Reports: None Social & Family History - Family History Family Medical History: No Pertinent Family History - Caffeine Use Caffeine Use: Reports: Soda Other Caffeine Use: diet pop. - Living Situation & Occupation Occupation: Retired ED ROS GENERAL - Review of Systems Review Of Systems: See Below Constitutional: Reports: No Symptoms HEENT: Reports: No Symptoms Respiratory: Reports: Shortness of Breath, Cough Cardiovascular: Reports: No Symptoms Endocrine: Reports: No Symptoms GI/Abdominal: Reports: No Symptoms : Reports: No Symptoms Musculoskeletal: Reports: No Symptoms Skin: Reports: No Symptoms Neurological: Reports: No Symptoms Psychiatric: Reports: No Symptoms Hematologic/Lymphatic: Reports: No Symptoms ED EXAM, GENERAL - Physical Exam Exam: See Below Exam Limited By: No Limitations General Appearance: Alert, No Apparent Distress Eye Exam: Bilateral Eye: PERRL Ears: Normal External Exam, Normal Canal Nose: Normal Inspection, Normal Mucosa Throat/Mouth: Normal Inspection, Normal Lips Head: Atraumatic, Normocephalic Neck: Normal Inspection, Supple, Non-Tender, Full Range of Motion Respiratory/Chest: Lungs Clear, Rhonchi, Wheezing Cardiovascular: Normal Peripheral Pulses, Regular Rate, Rhythm, No Edema, No Gallop, No JVD, No Murmur GI/Abdominal: Normal Bowel Sounds, Soft, Non-Tender, No Organomegaly Back Exam: Normal Inspection, Full Range of Motion Extremities: Normal Inspection, Normal Range of Motion, Non-Tender Neurological: Alert, Oriented, CN II-XII Intact, Normal Cognition Psychiatric: Normal Affect, Normal Mood Skin Exam: Warm, Dry, Intact, Normal Color, No Rash #1 Interpretation EKG Date: 07/31/20 Time: 23:54 Rhythm: NSR Rate (Beats/Min): 76 [place]: LAD-Left [place] Deviation P-Wave: Present QRS: Normal ST-T: Depressed Comparison: Change From Previous EKG (NSR PAC) EKG Interpretation Comments: NSR Course - Vital Signs Text/Narrative:: Lab/EKG/CXR result was reviewed and discussed with patient Toradol 15 mg IV x1 Solumedrol 125 mg IV x1 Duoneb x1 Last Recorded V/S: Last Vital Signs Temp 36.4 C 07/30/20 23:15 Pulse 96 07/30/20 23:15 Resp 19 07/30/20 23:15 BP 145/89 H 07/30/20 23:15 Pulse Ox 96 07/30/20 23:15 - Orders/Labs/Meds Orders: Active Orders 24 hr Category Date Time Status Chest 1V Frontal [CR] Stat Exams 07/30/20 23:23 Taken Saline Lock Insert [OM.PC] Routine Oth 07/30/20 23:21 Ordered EKG 12 Lead [EK] Routine Ther 07/30/20 23:22 Ordered Labs: Laboratory Tests 07/30/20 07/30/20 07/30/20 Range/Units 23:35 23:35 23:35 WBC 4.6 (3.0-10.3) x10-3/uL RBC 3.85 (3.60-5.20) x10(6)uL Hgb 12.2 (11.4-15.5) g/dL Hct 37.0 (34.2-48.2) % MCV 96.1 (76.7-100.5) fL MCH 31.7 (23.9-33.9) pg MCHC 33.0 (31.9-34.8) g/dL RDW 14.7 (12.3-16.5) % Plt Count 311 (151-488) x10(3)uL MPV 8.1 (7.1-12.4) fL Neut % (Auto) 49.3 (30.8-76.2) % Lymph % (Auto) 25.8 (18.4-52.1) % Gibson % (Auto) 14.4 (4.4-15.7) % Eos % (Auto) 9.3 H (0.6-8.1) % Baso % (Auto) 1.2 (0.2-1.5) % Neut # (Auto) 2.3 (1.5-6.3) x10-3/uL Lymph # (Auto) 1.2 (1.0-4.4) x10-3/uL Gibson # (Auto) 0.7 (0.3-1.0) x10-3/uL Eos # (Auto) 0.4 (0.0-0.8) x10-3/uL Baso # (Auto) 0.1 (0.0-0.1) x10-3/uL PT 48.1 H* (9.0-11.1) sec INR 4.94 H* (1.00-1.24) Sodium 139 (135-145) mmol/L Potassium 4.5 (3.5-5.3) mmol/L Chloride 101 (100-110) mmol/L Carbon Dioxide 35 H (21-32) mmol/L BUN 25 H (7-18) mg/dL Creatinine 0.9 (0.55-1.02) mg/dL Est Cr Clr Drug Dosing TNP Estimated GFR (MDRD) > 60 (>60) BUN/Creatinine Ratio 27.8 H (9-20) Glucose 115 (80-116) mg/dL Calcium 8.7 (8.6-10.2) mg/dL Total Bilirubin 0.4 (0.1-1.3) mg/dL AST 26 H (5-25) IU/L ALT 36 D (12-36) U/L Alkaline Phosphatase 94 (56-112) IU/L Troponin I (4.0-60.3) pg/mL NT-Pro-B Natriuret Pep (<=450) pg/mL Total Protein 5.8 L (6.0-8.0) g/dL Albumin 3.1 L (3.2-4.6) g/dL Globulin 2.7 g/dL Albumin/Globulin Ratio 1.2 07/30/20 07/30/20 Range/Units 23:35 23:35 WBC (3.0-10.3) x10-3/uL RBC (3.60-5.20) x10(6)uL Hgb (11.4-15.5) g/dL Hct (34.2-48.2) % MCV (76.7-100.5) fL MCH (23.9-33.9) pg MCHC (31.9-34.8) g/dL RDW (12.3-16.5) % Plt Count (151-488) x10(3)uL MPV (7.1-12.4) fL Neut % (Auto) (30.8-76.2) % Lymph % (Auto) (18.4-52.1) % Gibson % (Auto) (4.4-15.7) % Eos % (Auto) (0.6-8.1) % Baso % (Auto) (0.2-1.5) % Neut # (Auto) (1.5-6.3) x10-3/uL Lymph # (Auto) (1.0-4.4) x10-3/uL Gibson # (Auto) (0.3-1.0) x10-3/uL Eos # (Auto) (0.0-0.8) x10-3/uL Baso # (Auto) (0.0-0.1) x10-3/uL PT (9.0-11.1) sec INR (1.00-1.24) Sodium (135-145) mmol/L Potassium (3.5-5.3) mmol/L Chloride (100-110) mmol/L Carbon Dioxide (21-32) mmol/L BUN (7-18) mg/dL Creatinine (0.55-1.02) mg/dL Est Cr Clr Drug Dosing Estimated GFR (MDRD) (>60) BUN/Creatinine Ratio (9-20) Glucose (80-116) mg/dL Calcium (8.6-10.2) mg/dL Total Bilirubin (0.1-1.3) mg/dL AST (5-25) IU/L ALT (12-36) U/L Alkaline Phosphatase (56-112) IU/L Troponin I 10.4 (4.0-60.3) pg/mL NT-Pro-B Natriuret Pep 274 (<=450) pg/mL Total Protein (6.0-8.0) g/dL Albumin (3.2-4.6) g/dL Globulin g/dL Albumin/Globulin Ratio Meds: Medications Discontinued Medications Generic Name Dose Route Start Last Admin Trade Name Freq PRN Reason Stop Dose Admin Albuterol/Ipratropium 3 ml 07/30/20 23:48 07/30/20 23:51 Albuterol/Ipratropium 3.0-0.5 Mg/3 Ml Neb Soln NEB 07/30/20 23:49 3 ml ONETIME ONE Administration Ketorolac Tromethamine 15 mg 07/30/20 23:47 07/30/20 23:51 Ketorolac 30 Mg/Ml Sdv IVPUSH 07/30/20 23:48 15 mg ONETIME ONE Administration Methylprednisolone Sodium Succinate 125 mg 07/30/20 23:46 07/30/20 23:51 Methylprednisolone Sodium Succinate 125 Mg/2 Ml Sdv IVPUSH 07/30/20 23:47 125 mg ONETIME ONE Administration Sodium Chloride 10 ml 07/30/20 23:21 07/30/20 23:53 Sodium Chloride 0.9% 10 Ml Syringe FLUSH 10 ml ASDIRECTED PRN Administration Keep Vein Open Departure - Departure Time of Disposition: 00:30 Disposition: Home, Self-Care 01 Condition: Good Clinical Impression: COPD exacerbation, Atypical chest pain, Elevated INR Prescriptions: predniSONE [Prednisone] 20 mg PO DAILY #7 tablet Azithromycin [Zithromax] 250 mg PO DAILY #6 tablet Instructions: Chronic Obstructive Pulmonary Disease Exacerbation, [id number], Chest Wall Pain, [id number], Prothrombin Time, International Normalized Ratio Test Referrals: Belen Elaine SOYBEAN GROWER [Primary Care Provider] - Forms: ED Department Discharge Additional Instructions: Please read discharge instructions on chest wall pain, COPD, elevated INR Continue your oxygen Prednisone 20 mg daily for 7 days Z-flory as directed Do not take your warfarin/coumadin for 3 days Follow up as needed Sepsis Event Note (ED) - Focused Exam Vital Signs: Vital Signs Temp Pulse Resp BP Pulse Ox 07/30/20 23:15 36.4 C 96 19 145/89 H 96 - My Orders Last 24 Hours: My Active Orders 07/30/20 23:21 Saline Lock Insert [OM.PC] Routine 07/30/20 23:22 EKG 12 Lead [EK] Routine 07/30/20 23:23 Chest 1V Frontal [CR] Stat - Assessment/Plan Last 24 Hours: My Active Orders 07/30/20 23:21 Saline Lock Insert [OM.PC] Routine 07/30/20 23:22 EKG 12 Lead [EK] Routine 07/30/20 23:23 Chest 1V Frontal [CR] Stat
[2020-07-31 01:46] VITALS: BP 145/89; PULSE 96
--- NOTE | 2020-07-31 10:55 | CR ---
INDICATION: Chest pain. CHEST, ONE VIEW: An AP upright portable view of the chest 07/30/20 was compared with 06/17/20 and 05/09/20. No definite interval change or acute process was identified allowing for relatively poor inspiration on the current study. The heart did not appear grossly enlarged. The aorta is slightly tortuous with calcification in the arch. Overlying EKG leads are noted. Heavy markings are noted in the lower lung mckeon and right upper lung field, likely fibrotic in nature without a definite active infiltrate or effusion. Somewhat flattened diaphragm leaves and hyperaeration suggest COPD. Dextroconvex scoliosis of the thoracic spine is again noted. IMPRESSION: Stable chest. No acute process. MTDD
== END 2020-07-31 00:50 | disposition home or self-care (01) ==
LOC: FB.ED 23:12
DX: J44.1 Chronic obstructive pulmonary disease with (acute) exacerbation (principal); R79.1 Abnormal coagulation profile; I11.0 Hypertensive heart disease with heart failure; I50.9 Heart failure, unspecified; J44.9 Chronic obstructive pulmonary disease, unspecified; F17.200 Nicotine dependence, unspecified, uncomplicated; Z79.01 Long term (current) use of anticoagulants; Z79.899 Other long term (current) drug therapy
CPT/HCPCS: 36415; 71045; 80053; 83880; 84484; 85025; 85610; 93005; 93010; 94640; 96374; 96375; 99284; 99285-25; J1885; J2930; J7620-GY

== ENCOUNTER 2020-10-08 17:52 | Emergency (ER) | payer MEDICARE ==
[2020-10-08] MEDS ORDERED: HYDROmorphone 2 MG/ML SDV IM ONE (17:54)
--- NOTE | 2020-10-08 17:57 | EDM.PDOC ---
ED HPI GENERAL MEDICAL PROBLEM - General Stated Complaint: FALL Time Seen by Provider: 10/08/20 17:55 Source of Information: Reports: Patient History Limitations: Reports: No Limitations - History of Present Illness INITIAL COMMENTS - FREE TEXT/NARRATIVE: Nichol fell at the [facility].She fell in the bathroom,unwitnessed,backwards,landing on the right side.Complain of pain on the right him,inability to bear weight R hip Pain Score (Numeric/FACES): 10 - Related Data Allergies Allergy/AdvReac Type Severity Reaction Status Date / Time Penicillins Allergy Severe Hives Verified 07/31/20 01:30 latex Allergy Rash Verified 07/31/20 01:30 Home Meds: Home Meds Multivitamins 1 each PO DAILY 12/05/12 [History] Budesonide [Pulmicort] 0.5 mg INH BID 08/15/17 [History] Albuterol [Ventolin HFA] 2 puff INH Q6H PRN 09/26/17 [History] Calcium Carbonate/Vitamin D3 [Calcium 600 + Vit D 200] 2 tab PO DAILY 04/28/19 [History] Tiotropium [place] [Spiriva Respimat] 1 puff INH DAILY 04/28/19 [History] Albuterol/Ipratropium [DuoNeb 3.0-0.5 MG/3 ML] 3 ml NEB QID PRN 30 Days #1 box 06/25/20 [Rx] Warfarin Sodium [Jantoven] 5 mg PO DAILY 30 Days #30 tab 06/25/20 [Rx] polyethylene glycoL 3350 [MiraLAX] 17 gm PO DAILY 30 Days #1 bottle 06/25/20 [Rx] Azithromycin [Zithromax] 250 mg PO DAILY #6 tablet 07/31/20 [Rx] Acetaminophen 1,000 mg PO BEDTIME 10/08/20 [History] Bisacodyl [Laxative Suppository] RECTAL ASDIRECTED PRN 10/08/20 [History] Carboxymethylcellulose Sodium [Thera Tears] 1 each OP BEDTIME 10/08/20 [History] Citalopram Hydrobromide [Celexa] 20 mg PO BEDTIME 10/08/20 [History] Diltiazem [Cardizem CD] 120 mg PO DAILY 10/08/20 [History] Furosemide [Lasix] 20 mg PO ASDIRECTED PRN 10/08/20 [History] Furosemide [Lasix] 40 mg PO DAILY 10/08/20 [History] Loperamide [Imodium AD] 2 mg PO PRN 10/08/20 [History] Loratadine [Claritin] 10 mg PO DAILY 10/08/20 [History] Nitroglycerin [Nitrostat] 0.4 mg SL ASDIRECTED PRN 10/08/20 [History] Omeprazole 20 mg PO DAILY 10/08/20 [History] Roflumilast [Daliresp] 500 mcg PO DAILY 10/08/20 [History] Tuberculin,Purif.Prot.Deriv. [Tubersol] 0.1 ml IM DAILY 10/08/20 [History] guaiFENesin [Guaifenesin] 600 mg PO BID 10/08/20 [History] Past Medical History HEENT History: Reports: Impaired Vision, Macular Degeneration Other HEENT History: Wears glasses. 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: Musculoskeletal History: Reports: Arthritis, Back Pain, Chronic, Fracture, Osteoporosis Other Musculoskeletal History: hx fx sternum, fx ribs, recent diagnosis for herniated disc Neurological History: Reports: None Psychiatric History: Reports: Anxiety, Depression Endocrine/Metabolic History: Reports: None Hematologic History: Reports: Anticoagulation Therapy Oncologic (Cancer) History: Reports: Cervix - Infectious Disease History Infectious Disease History: Reports: Measles - Past Surgical History HEENT Surgical History: Reports: Cataract Surgery, Other (See Below) Other HEENT Surgeries/Procedures: Cornea transplant. Cardiovascular Surgical History: Reports: Other (See Below) Other Cardiovascular Surgeries/Procedures: Vein stripping procedure 2. GI Surgical History: Reports: Appendectomy, Bariatric Procedure, Cholecystectomy, Colon, Hernia Repair/Other, Other (See Below) Other GI Surgeries/Procedures: Bowel obstruction. Female Surgical History: Reports: Hysterectomy Musculoskeletal Surgical History: Reports: None Social & Family History - Family History Family Medical History: No Pertinent Family History - Caffeine Use Caffeine Use: Reports: Coffee, Soda Other Caffeine Use: diet pop. - Living Situation & Occupation Occupation: Retired Review of Systems - Review of Systems Review Of Systems: Comprehensive ROS is negative, except as noted in HPI. ED EXAM, GENERAL - Physical Exam Exam: See Below Exam Limited By: No Limitations General Appearance: Alert, Anxious Ears: Normal External Exam Head: Atraumatic, Normocephalic Neck: Normal Inspection Respiratory/Chest: No Respiratory Distress Extremities: Pedal Edema, Leg Pain, Limited Range of Motion Neurological: Alert Psychiatric: Normal Affect Course - Vital Signs Last Recorded V/S: Last Vital Signs Temp 99.8 F 10/08/20 17:52 Pulse 74 10/08/20 19:07 Resp 18 10/08/20 19:07 BP 110/65 10/08/20 19:07 Pulse Ox 90 L 10/08/20 19:07 - Orders/Labs/Meds Orders: Active Orders 24 hr Category Date Time Status Oxygen Therapy Adult [Oxygen Therapy, ED] [RC] Care 10/08/20 17:52 Active ASDIRECTED Hip Min 2V or 3V w Pelvis Rt [CR] Stat Exams 10/08/20 17:55 Taken Meds: Medications Discontinued Medications Generic Name Dose Route Start Last Admin Trade Name Freq PRN Reason Stop Dose Admin Hydromorphone HCl 1 mg 10/08/20 17:54 10/08/20 18:09 Hydromorphone 2 Mg/Ml Sdv IM 10/08/20 17:55 1 mg ONETIME ONE Administration Departure - Departure Time of Disposition: 19:12 Disposition: DC/[facility] to [facility] 02 Clinical Impression: Fracture of neck of femur, hip - Discharge Information Referrals: Dana Munguia, REGISTRY RN [Primary Care Provider] - Sepsis Event Note (ED) - Focused Exam Vital Signs: Vital Signs Temp Pulse Resp BP Pulse Ox 10/08/20 19:07 74 18 110/65 90 L 10/08/20 18:52 72 18 106/64 91 L 10/08/20 18:35 94 18 107/70 91 L 10/08/20 17:52 99.8 F 78 24 H 138/81 94 L - Problem List & Annotations (1) Fracture of neck of femur, hip SNOMED Code(s): 6713162 Code(s): S72.009A - FRACTURE OF UNSP PART OF NECK OF UNSP FEMUR, INIT Status: Acute Current Visit: Yes - Problem List Review Problem List Initiated/Reviewed/Updated: Yes - My Orders Last 24 Hours: My Active Orders 10/08/20 17:52 Oxygen Therapy Adult [Oxygen Therapy, ED] [] ASDIRECTED 10/08/20 17:55 Hip Min 2V or 3V w Pelvis Rt [CR] Stat - Assessment/Plan Last 24 Hours: My Active Orders 10/08/20 17:52 Oxygen Therapy Adult [Oxygen Therapy, ED] [RC] ASDIRECTED 10/08/20 17:55 Hip Min 2V or 3V w Pelvis Rt [CR] Stat Plan: Dilaudid 1 MG IM
[2020-10-09 01:39] VITALS: BP 135/86; PULSE 83
== END 2020-10-08 20:22 ==
LOC: FB.ED 17:52
DX: S72.141A Displaced intertrochanteric fracture of right femur, initial encounter for closed fracture (principal); I11.0 Hypertensive heart disease with heart failure; I50.9 Heart failure, unspecified; J44.9 Chronic obstructive pulmonary disease, unspecified; F17.200 Nicotine dependence, unspecified, uncomplicated; Z79.01 Long term (current) use of anticoagulants; Z88.0 Allergy status to penicillin; Z91.040 Latex allergy status; Z79.899 Other long term (current) drug therapy; W18.30XA Fall on same level, unspecified, initial encounter; Y92.121 Bathroom in nursing home as the place of occurrence of the external cause
CPT/HCPCS: 36415; 73502; 80053; 85025; 85610; 96372; 99284; 99285; J1170